=== PATIENT | female | born 1940 | race Caucasian/White ===

== ENCOUNTER → 2020-02-11 15:06 | Outpatient (BNVA) | payer MEDICARE, SELFPAY | PROVIDERS: PCP Nurse Practitioner Family; Referring Provider Nurse Practitioner Family; Visit Provider Obstetrics & Gynecology | DX: N95.0 Postmenopausal bleeding (principal); R93.89 Abnormal findings on diagnostic imaging of other specified body structures | CPT/HCPCS: 99213; Q3014 ==

== ENCOUNTER 2020-02-24 11:20 | Outpatient (REF) | payer MEDICARE, SELFPAY ==
--- NOTE | 2020-02-24 | US_ITS ---
EXAMINATION: US RETROPERITONEAL LIMITED (RENAL ONLY) CLINICAL INFORMATION: Renal cysts. COMPARISON: None TECHNIQUE: Routine valenzuela-scale, color and Doppler imaging of kidneys was performed. FINDINGS: RIGHT KIDNEY: 12.8 x 4.6 x 7.5 cm (SAG x AP x TRV). The kidney is normal in size, contour, and echogenicity. Renal cortical thickness is normal. No calculi or focal parenchymal lesions. There is mild upper pole caliectasis. No hydronephrosis seen. There are several anechoic cysts seen. 1. An upper pole cyst measures 15.8 x 4.7 x 9.6 cm. 2. Midpole cyst measures 6.8 x 4.6 x 6.3 cm. 3. A lower pole cyst measures 8.5 x 6.1 x 6.0 cm. 4. Upper pole cyst measures 1.1 x 1.2 x 1.1 cm. LEFT KIDNEY: 9.5 x 4.7 x 5.8 cm (SAG x AP x TRV). The kidney is normal in size, contour, and echogenicity. Renal cortical thickness is normal. No calculi or focal parenchymal lesions. No hydronephrosis. There are 2 anechoic cysts. 1. Midpole cyst measures 5.8 x 6.8 x 6.5 cm. 2. An upper pole cyst measures 2.2 x 2.7 x 2.6 cm. US/US renal BI IMPRESSION: Bilateral renal cysts. There are no echogenic stones. There is mild upper pole caliectasis.
== END 2020-02-24 11:21 | disposition home or self-care (01) ==
LOC: HO.HMGCX 11:20
PROVIDERS: PCP Nurse Practitioner Family; Visit Provider Urology
DX: N28.1 Cyst of kidney, acquired (principal)
CPT/HCPCS: 76775

== ENCOUNTER 2020-03-04 15:44 | Outpatient (REF) | payer MEDICARE, SELFPAY | END 2020-03-04 15:45 | disposition home or self-care (01) | LOC: HO.LNP 15:44 | PROVIDERS: Visit Provider Obstetrics & Gynecology | DX: Z13.89 Encounter for screening for other disorder (principal) ==

== ENCOUNTER 2020-03-05 08:52 | Outpatient (REF) | payer MEDICARE, SELFPAY | END 2020-03-05 08:53 | disposition home or self-care (01) | LOC: HO.LAB 08:52 | PROVIDERS: Visit Provider Obstetrics & Gynecology | DX: N95.0 Postmenopausal bleeding (principal) | CPT/HCPCS: 88305 ==

== ENCOUNTER → 2020-03-06 14:53 | Outpatient (BNVA) | payer MEDICARE, SELFPAY | PROVIDERS: Visit Provider Urology | DX: N28.1 Cyst of kidney, acquired (principal) | CPT/HCPCS: Q3014 ==

== ENCOUNTER → 2020-03-25 15:55 | Outpatient (BNVA) | payer MEDICARE, SELFPAY | PROVIDERS: Visit Provider Obstetrics & Gynecology | DX: N95.0 Postmenopausal bleeding (principal) | CPT/HCPCS: Q3014 ==

== ENCOUNTER 2020-07-06 09:21 | Outpatient (REF) | payer MEDICARE, SELFPAY ==
--- NOTE | ~2020-07-06 | XR_ITS ---
EXAMINATION: KNEE X-RAY CLINICAL INFORMATION: Pain COMPARISON: None TECHNIQUE: Standing AP view of both knees and lateral and sunrise view of the left knee FINDINGS: Left: There is mild varus angulation. No fracture or dislocation is seen. There is severe arthritis at the medial femoral tibial and patellofemoral joints with joint space narrowing and osteophyte formation. There is a joint effusion. There is an osteophyte at the quadriceps tendon insertion to the patella. There is evidence of atherosclerotic disease. Right: There is a right knee replacement. XR/XR knee LT 2V IMPRESSION: Severe left knee arthritis. Right knee replacement.
--- NOTE | ~2020-07-06 | XR_ITS ---
EXAMINATION: KNEE X-RAY CLINICAL INFORMATION: Pain COMPARISON: None TECHNIQUE: Standing AP view of both knees and lateral and sunrise view of the left knee FINDINGS: Left: There is mild varus angulation. No fracture or dislocation is seen. There is severe arthritis at the medial femoral tibial and patellofemoral joints with joint space narrowing and osteophyte formation. There is a joint effusion. There is an osteophyte at the quadriceps tendon insertion to the patella. There is evidence of atherosclerotic disease. Right: There is a right knee replacement. XR/XR knee standing BI IMPRESSION: Severe left knee arthritis. Right knee replacement.
== END 2020-07-06 09:22 | disposition home or self-care (01) ==
LOC: HO.HOSX 09:21
PROVIDERS: PCP Nurse Practitioner Family; Visit Provider Orthopaedic Surgery
DX: M17.12 Unilateral primary osteoarthritis, left knee (principal)
CPT/HCPCS: 20610; 73560; 73565; 99202; J1040; J1100

== ENCOUNTER 2020-07-24 08:50 | Day surgery (SDC) | payer MEDICARE, SELFPAY ==
[2020-07-17 19:26] VITALS: BMI 34.8
--- NOTE | 2020-07-23 09:01 | P.CONAN_ITS ---
Documented by User: Yandy Jaqui 07/23/20 09:02 HPI - Anesthesia Eval Consult details Narrative: 80yo F for Colonoscopy Eliquis for h/o PE PMFSH Active Problems Active Problems: All Active Problems (Updated 07/17/20 @ 19:26 by Mariann Miller RN) Post-menopausal bleeding (Acute) Renal cysts, acquired, bilateral (Acute) Cellulitis of foot (Acute) Irritable bowel syndrome with mixed bowel habits (Acute) Past Medical History Medical History (Updated 07/17/20 @ 19:26 by Mariann Miller RN) Arthritis DVT (deep venous thrombosis) Elevated cholesterol History of hysteroscopy (~2013) History of pulmonary embolus (PE) HTN (hypertension) Family History Family History Father No problems noted. Mother No problems noted. Surgical History Surgical History (Updated 07/17/20 @ 19:24 by Mariann Miller RN) History of colonoscopy History of phacoemulsification of cataract with intraocular lens implantation History of total right knee replacement (TKR) Hx of cholecystectomy Hx of cystoscopy (~2000) Hx of tonsillectomy Social History Social History Alcohol intake: never Smoking Status: Never smoker Second Hand Smoke Exposure: No Use of substances other than those prescribed or required for medical reasons: No Have you been hit, kicked, punched, or otherwise hurt by someone within the past year? If so, by whom?: No Advance Directives: No Advance Directives Information Provided: No Advance Directives on File: No Recently lost weight without trying: No Sexual orientation: Straight/Heterosexual Gender identity: female Meds Allergies Allergy/AdvReac Type Severity Reaction Status Date / Time latex [LATEX] Allergy Intermediate SWELLING Verified 07/06/20 09:27 hazelnut Allergy Unknown ANAPHYLAXIS Verified 07/06/20 09:27 sulfites Allergy Unknown nasal Verified 07/06/20 09:27 swelling prednisone AdvReac Unknown Unknown Verified 07/06/20 09:27 Home Medications Medication Instructions Recorded Confirmed Last Taken Type acetaminophen 500 mg tablet 1,000 mg PO Q6H PRN 01/23/20 07/17/20 Unknown History omeprazole 40 mg capsule,delayed 40 mg PO DAILY 01/23/20 07/17/20 Unknown History release oxygen-air delivery systems #1 01/23/20 05/28/20 Unknown History dicyclomine 10 mg capsule 10 mg PO .COMPLEX cap 05/28/20 07/17/20 Unknown History Exam Exam Date and Time: July 23, 2020900 Height,Weight and Vital Signs: Height 5 ft 6 in Weight 97.976 kg Assessment and Plan Assessment Anesthesia Assessment: Chart Reviewed Documented by User: Samantha Gage 07/24/20 10:52 [facility] Past Medical History Medical History (Updated 07/17/20 @ 19:26 by Mariann Miller RN) Arthritis DVT (deep venous thrombosis) Elevated cholesterol History of hysteroscopy (~2013) History of pulmonary embolus (PE) HTN (hypertension) Family History Family History Father No problems noted. Mother No problems noted. Surgical History Surgical History (Updated 07/17/20 @ 19:24 by Mariann Miller RN) History of colonoscopy History of phacoemulsification of cataract with intraocular lens implantation History of total right knee replacement (TKR) Hx of cholecystectomy Hx of cystoscopy (~2000) Hx of tonsillectomy Social History Social History Alcohol intake: never Smoking Status: Never smoker Second Hand Smoke Exposure: No Use of substances other than those prescribed or required for medical reasons: No Have you been hit, kicked, punched, or otherwise hurt by someone within the past year? If so, by whom?: No Advance Directives: No Advance Directives Information Provided: No Advance Directives on File: No Recently lost weight without trying: No Sexual orientation: Straight/Heterosexual Gender identity: female Meds Allergies Allergy/AdvReac Type Severity Reaction Status Date / Time latex [LATEX] Allergy Intermediate SWELLING Verified 07/06/20 09:27 hazelnut Allergy Unknown ANAPHYLAXIS Verified 07/06/20 09:27 sulfites Allergy Unknown nasal Verified 07/06/20 09:27 swelling prednisone AdvReac Unknown Unknown Verified 07/06/20 09:27 Home Medications Medication Instructions Recorded Confirmed Last Taken Type acetaminophen 500 mg tablet 1,000 mg PO Q6H PRN 01/23/20 07/17/20 Unknown History omeprazole 40 mg capsule,delayed 40 mg PO DAILY 01/23/20 07/17/20 Unknown History release oxygen-air delivery systems #1 01/23/20 05/28/20 Unknown History dicyclomine 10 mg capsule 10 mg PO .COMPLEX cap 05/28/20 07/17/20 Unknown History Exam Airway Mallampati Class: II TM Dist: >3cm Neck ROM: Full Heart: RRR Lungs: CTA BL Assessment and Plan Assessment Anesthesia Assessment: Anesthesia Plan Discussed and Chart Reviewed Final Anesthetic Review NPO: Yes (Sip water with meds) ASA Class: III Final Preanesthetic Review: No Changes in Pt Med Stat and Consent Obtained/Reviewed Patient Risk: Intermediate Procedure Risk: Intermediate Anesthetic Plan Anesthetic Plan: MAC: Disposition: Standard PACU
[2020-07-24 10:01] VITALS: BP 143/70; PULSE 70; RESP 18; TEMP 36.6; O2SAT 96
[2020-07-24] MEDS: Lactated Ringers 1,000 ML 100 ML IVCONT (10:31)
--- NOTE | 2020-07-24 10:53 | MHC.SHP ---
Pre-Procedural Eval Section A The patient is an INPATIENT: No Changes since office visit: No Cold of Flu in the past 2 weeks, No New Medical Problems, No Changes in Medication and No Patient answered all questions Section B Chief Complaint: rectal bleeding Allergies: Allergies Allergy/AdvReac Type Severity Reaction Status Date / Time latex [LATEX] Allergy Intermediate SWELLING Verified 07/06/20 09:27 hazelnut Allergy Unknown ANAPHYLAXIS Verified 07/06/20 09:27 sulfites Allergy Unknown nasal Verified 07/06/20 09:27 swelling prednisone AdvReac Unknown Unknown Verified 07/06/20 09:27 Plan I have reviewed the history and physical and performed a pertinent physical examination on my patient. No changes have occurred unless specified.
[2020-07-24 11:22] VITALS: BP 115/63; PULSE 64; RESP 16; TEMP 36.3; O2SAT 95
--- NOTE | 2020-07-24 11:32 | MHC.SHP ---
Pre-Procedural Eval Section A The patient is an INPATIENT: No Changes since office visit: No Cold of Flu in the past 2 weeks, No New Medical Problems, No Changes in Medication and No Patient answered all questions The History & Physical has been completed within 30 days and I have reviewed it.: No Section B Chief Complaint: rectal bleeding Allergies: Allergies Allergy/AdvReac Type Severity Reaction Status Date / Time latex [LATEX] Allergy Intermediate SWELLING Verified 07/06/20 09:27 hazelnut Allergy Unknown ANAPHYLAXIS Verified 07/06/20 09:27 sulfites Allergy Unknown nasal Verified 07/06/20 09:27 swelling prednisone AdvReac Unknown Unknown Verified 07/06/20 09:27 Plan I have reviewed the history and physical and performed a pertinent physical examination on my patient. No changes have occurred unless specified.
--- NOTE | 2020-07-24 11:32 | PM.OP ---
Brief Operative Note Date of Service: 07/24/20 Pre-op diagnosis: rectal bleeding Post-op diagnosis: same Procedure: colonoscopy Surgeon: Donte Merrill Anesthesia: MAC Estimated blood loss (mL): 2 Pathology: other (sigmoid biopsies) Condition: stable Disposition: PACU
[2020-07-24 11:37] VITALS: BP 146/76; PULSE 64; RESP 16; TEMP 36.3; O2SAT 96
--- NOTE | 2020-07-24 11:46 | OP_ITS ---
SURGEON: Donte Merrill MD INDICATIONS: Rectal bleeding and irritable bowel syndrome with diarrhea. PREOPERATIVE DIAGNOSIS: POSTOPERATIVE DIAGNOSIS: PROCEDURE PERFORMED: Colonoscopy to the terminal ileum with biopsy. ESTIMATED BLOOD LOSS: COMPLICATIONS: ANESTHESIA: ASSISTANTS: SPECIMENS: MEDICATIONS: Monitored anesthesia care. DESCRIPTION OF PROCEDURE: History and physical performed. The risks and benefits of the procedure were explained to the patient. Informed consent was obtained. The patient was placed in left lateral decubitus position. A digital rectal exam was performed and was found to be normal. The Olympus pediatric video colonoscope was introduced into the rectum and advanced to the cecum without difficulty. The cecum was identified by transillumination, palpation, and identification of ileocecal valve. Examination was performed and the scope was removed. She tolerated the procedure well and was taken to recovery area in stable condition. FINDINGS: The terminal ileum was normal. The visualized colonic mucosa was normal. There was diverticulosis scattered throughout the colon. Random sigmoid biopsies were obtained. The quality of the prep was good. The mucosa appeared normal. Retroflexed examination showed some small internal hemorrhoids. IMPRESSION: Normal colonoscopy. RECOMMENDATIONS: 1. Follow up as needed. 2. Repeat colonoscopy for screening purposes is not recommended based on age. MD BAHMAN Bolden/BRITTNEE / [id number]
== END 2020-07-24 12:35 | disposition home or self-care (01) ==
PROVIDERS: PCP Nurse Practitioner Family; Visit Provider Internal Medicine Gastroenterology
PROC: 0DJD8ZZ Inspection of Lower Intestinal Tract, Via Natural or Artificial Opening Endoscopic (ICD-10-PCS; CPT 45378; principal; 2020-07-24 10:10)
DX: K62.5 Hemorrhage of anus and rectum (principal); K58.0 Irritable bowel syndrome with diarrhea; Z86.010 Personal history of colon polyps; K64.8 Other hemorrhoids; I10 Essential (primary) hypertension; I82.409 Acute embolism and thrombosis of unspecified deep veins of unspecified lower extremity; Z79.02 Long term (current) use of antithrombotics/antiplatelets; Z86.711 Personal history of pulmonary embolism; Z87.891 Personal history of nicotine dependence; Z91.040 Latex allergy status
CPT/HCPCS: 45380; 88305

== ENCOUNTER 2020-10-01 14:33 | Outpatient (REF) | payer MEDICARE, SELFPAY ==
--- NOTE | ~2020-10-01 | US_ITS ---
EXAMINATION: US VENOUS ULTRASOUND WITH DOPPLER LOWER EXTREMITY, RIGHT CLINICAL INFORMATION: Right leg swelling. On atelectatic was COMPARISON: None TECHNIQUE: Ultrasound of the deep veins is performed from the hip to the calf with compression sonography and color and pulse Doppler assessment. Spectral analysis with color-flow imaging is performed. FINDINGS: There is normal flow and compression seen in the common femoral, greater saphenous and the profunda veins. There is noncompression with thrombus visualized in the right proximal femoral vein to right calf veins consistent with acute DVT. There is no significant popliteal fossa cyst. If the patient's symptoms persist, followup ultrasound in 5 days 7 days might be of value to exclude proximal propagation from a non-visualized calf vein. US/US venous duplex LE RT IMPRESSION: Acute DVT right common femoral to calf veins. The right common femoral, greater saphenous and profunda femoral veins are patent.
== END 2020-10-01 14:34 | disposition home or self-care (01) ==
LOC: HO.HMGCX 14:33
PROVIDERS: PCP Nurse Practitioner Family; Visit Provider Nurse Practitioner Family
DX: M79.89 Other specified soft tissue disorders (principal); I10 Essential (primary) hypertension; Z86.718 Personal history of other venous thrombosis and embolism
CPT/HCPCS: 93971

== ENCOUNTER 2020-10-02 08:46 | Outpatient (REF) | payer MEDICARE, SELFPAY ==
[2020-10-02 11:41] LABS: D Dimer 2153 NG/ML
[2020-10-02 12:16] LABS: TSH reflex Free T4 1.15 uIU/mL (0.32-4.0)
[2020-10-02 12:34] LABS: Alanine Aminotransferase 9 U/L (0-31); Albumin Level 4.2 g/dL (3.5-5.0); Alkaline Phosphatase 124 U/L (39-117); Anion Gap 15 (12-20); Aspartate Amino Transferase 14 U/L (5-31); Bilirubin Total 0.7 mg/dL (0.0-1.0); Blood Urea Nitrogen 15 mg/dL (9-16); Carbon Dioxide 27 mmol/L (22-29); Chloride 105 mmol/L (96-108); Cholesterol 179 mg/dL; Estimated Glomerular Filt Rate 57; Glucose Fasting 105 mg/dL (60-99); HDL Cholesterol 46 mg/dL; LDL Cholesterol Calculated 106 mg/dl; Potassium 4.3 mmol/L (3.3-5.1); Sodium 143 mmol/L (135-145); Total Protein 6.7 g/dL (6.5-8.0); Triglycerides 137 mg/dL
== END 2020-10-02 08:47 | disposition home or self-care (01) ==
LOC: HO.HMGCLDS 08:46
PROVIDERS: PCP Nurse Practitioner Family; Visit Provider Nurse Practitioner Family
DX: I10 Essential (primary) hypertension (principal); M79.89 Other specified soft tissue disorders; Z86.718 Personal history of other venous thrombosis and embolism
CPT/HCPCS: 36415; 80053; 80061; 84443; 85379

== ENCOUNTER → 2020-10-15 10:44 | Outpatient (BNV) | payer MEDICARE, SELFPAY | PROVIDERS: PCP Nurse Practitioner Family; Referring Provider Nurse Practitioner Family; Visit Provider Internal Medicine Medical Oncology | DX: I82.401 Acute embolism and thrombosis of unspecified deep veins of right lower extremity (principal) | CPT/HCPCS: 99204; 99213; 99214 ==

== ENCOUNTER 2021-10-12 13:18 | Outpatient (REF) | payer MEDICARE, SELFPAY ==
--- NOTE | ~2021-10-12 | MM_ITS ---
EXAMINATION: BONE DENSITOMETRY CLINICAL INDICATION: Menopause. COMPARISON: Previous BD dated 08/11/1999 and baseline BD dated 07/14/2008. TECHNIQUE: Using a [employer] DXA System (software version: 13.1) manufactured by [employer], dual-energy x-ray absorptiometry was performed of the lumbar spine and left hip. The images are of good technical quality. Summary results are attached. FINDINGS: AP SPINE L1-L4: Current: BMD 1.375 g/cm2, Z-score 2.5, T-score 1.6, normal, 1.0% decrease from previous, 2.1% increase from baseline (<5% change is not significant). Prior: BMD 1.389 g/cm2. Baseline: BMD 1.347 g/cm2. LEFT FEMUR, NECK: Current: BMD 0.739 g/cm2, Z-score -0.6, T-score -2.2, osteopenia. Prior: BMD 0.876 g/cm2. Baseline: BMD 0.864 g/cm2. LEFT FEMUR, TOTAL: Current: BMD 0.930 g/cm2, Z-score 0.7, T-score -0.6, normal, 9.0% decrease from previous, 6.9% decrease from baseline (<5% change is not significant). Prior: BMD 1.022 g/cm2. Baseline: BMD 0.999 g/cm2. IDENTIFIED RISK FACTORS: Menopause. HISTORY OF FRACTURE: None listed. MEDICATIONS: None listed. MM/XR DEXA axial skeleton IMPRESSION: 1. DIAGNOSIS: Osteopenia based on the lowest T-score value of -2.2 in the femoral neck applying World Health Organization criteria. 2. 10-YEAR FRACTURE RISK PREDICTION, FRAX: Major osteoporotic fracture (clinical spine, forearm, hip or shoulder) 15.7%. Hip fracture 4.8%. 3. Treatment Recommendations: NOF guidelines recommend consideration for treatment in postmenopausal women and men age 50 and older presenting with the following: -A hip or vertebral (clinical or morphometric) fracture. -T-score less than or equal to -2.5 at the femoral neck or spine after appropriate evaluation to exclude secondary causes. -Low bone mass at the hip or spine and a 10-year fracture probability by FRAX of greater than or equal to 3% for hip fracture or greater than or equal to 20% for major osteoporotic fracture based on the [place] adapted WHO algorithm. 4. Other Recommendations: All treatment decisions require clinical judgment and consideration of individual patient factors, including patient preferences, comorbidities, previous drug use, risk factors not captured in the FRAX model (e.g. frailty, falls, vitamin D deficiency, increased bone turnover, interval significant decline in bone density) and possible under or overestimation of fracture risk by FRAX. Additional medical evaluation for secondary cause of low bone mineral density may be appropriate. FUTURE SCAN RECOMMENDATION: People with diagnosed cases of osteoporosis or at high risk for fracture should have regular bone mineral density tests. For patients eligible for Medicare, routine testing is allowed once every 2 years. The testing frequency can be increased to one year for patients who have rapidly progressing disease, those who are receiving or discontinuing medical therapy to restore bone mass, or have additional risk factors.
== END 2021-10-12 13:19 | disposition home or self-care (01) ==
LOC: HO.MAMMO 13:18
PROVIDERS: PCP Nurse Practitioner Family; Visit Provider Nurse Practitioner Family
DX: Z78.0 Asymptomatic menopausal state (principal); K58.2 Mixed irritable bowel syndrome
CPT/HCPCS: 77080

== ENCOUNTER → 2021-11-08 13:49 | Outpatient (REF) | payer MEDICARE, SELFPAY ==
--- NOTE | 2021-11-08 13:52 | CA_ITS ---
Transthoracic Echocardiogram Patient (Last, First, Middle): Colette Aguiar G Gender: Female Date of : 1940 Age: 81 Procedure Date: 11/08/2021 Procedure Type: Transthoracic Echocardiogram Location: OP Height: 170.18 cm Weight: 91.17 kg BSA: 2.03 m2 Heart Rate: bpm BP: 122 / 60 mmHg Embedded Processor: Referring MD: Santos Reyez [facility] Print Buyer: Chris Ng MD Symptoms: R01.1 - Cardiac murmur, unspecified Study Quality: Good ECG Rhythm: Sinus with extra beats Conclusions: - 1. Normal LV systolic function with impaired relaxation filling pattern 2. Normal cardiac valvular Doppler 3. Mildly dilated ascending aorta at 3.9 cm 4. Normal RV systolic pressure 5. No gross pericardial effusion Findings Left Ventricle Normal left ventricular size, thickness, and systolic function. The visually estimated ejection fraction is between 60-65%. Spectral Doppler is indicative of an impaired relaxation filling pattern. E/E prime ratio is between 8 and 15 consistent with indeterminate filling pressures. Right Ventricle Normal right ventricular cavity size and systolic function. Atria Both atria are normal in size. There is a mobile atrial septum noted. Interatrial shunt cannot be excluded. Aortic Valve There is mild calcification of the aortic valve. There is no aortic valve stenosis. There is no aortic valve regurgitation. Mitral Valve Normal mitral valve structure and function. There is trace mitral valve regurgitation. There is no mitral valve stenosis. Pulmonic Valve The pulmonic valve was not well visualized. Tricuspid Valve Likely normal tricuspid valve structure and function. There is trace tricuspid valve regurgitation. The right ventricular systolic pressure is normal. The right ventricular systolic pressure is 32 mmHg. Normal right atrial pressure. There is no evidence of pulmonary hypertension. Great Vessels The pulmonary artery was not well visualized. There is mild dilatation of the ascending aorta. Venous The inferior vena cava is normal in size and collapses greater than 50% with inspiration. Pericardium/Pleural There is no evidence of pericardial effusion. Prior Study Comparison No significant change compared to prior study dated: 01/03/2017. Measurements 2D Linear Measurements IVSd: 0.92 0.6-0.9/0.6-1.0 cm LVIDd: 4.79 3.9-5.3/4.2-5.9 cm LVIDd Index: 2.36 2.4-3.2/2.2-3.1 cm/m2 LVIDs: 2.63 2.0-3.6 cm LVPWd: 0.93 0.7-1.1 cm Ao Root: 3.30 2.1-3.5 cm LA Diam: 3.80 2.7-3.8/3.0-4.0 cm LAIDs Index: 1.87 1.5-2.3 cm/m2 LV Mass: 189.62 67-162/88-224 g LV Mass Index: 93.41 43-95/49-115 g/m2 LVOT Diam: 2.00 3.0+(-)1.3 cm Mitral Valve MV Pk E: 0.57 MV PK A: 0.78 MV Decel Time: 224.00 E/A: 0.70 E'Lateral: 4.03 E'Medial: 4.68 E/E' Med: 12.20 E/E' Lat: 14.10 PHT: 65.00 MVA PHT: 3.38 Decel Mcintosh: 2.55 Aortic Valve AoV Pk León: 1.65 AoV Mn León: 0.98 AoV VTI: 0.31 AoV Pk Grad: 11.00 Aov Mn Grad: 5.00 RANDOLPH Cont.VTI: 2.21 LVOT LVOT Pk León: 1.04 LVOT Mn León: 0.69 LVOT VTI: 0.22 LVOT Pk Grad: 4.00 LVOT Mn Grad: 3.00 LVOT Diam: 2.00 LVOT Area: 3.14 Diastolic Function MV Pk E: 0.57 MV Pk A: 0.78 E/A: 0.70 E'Medial: 4.68 E/E' Med: 12.20 E' Laterial: 4.03 E/E' Lat: 14.10 Tricuspid Valve TR Pk León: 2.71 TR Pk Grad: 29.00 RA Press: 3.00 RVSP: 32.00 Great Vessels Aorta Ao Root-2D: 3.30 2.0-3.7 cm Ao Asc: 3.90 2.1-3.4 cm Pulmonary Valve PV Pk León: 0.99 Peak PV Grad: 4.00 Updated in Other Vendor System with Status of Final Chris Ng MD electronically signed on 11/08/2021 3:12:51 PM with status of Final
== END ==
LOC: HO.CARD 13:49
PROVIDERS: PCP Nurse Practitioner Family; Visit Provider Nurse Practitioner Family
DX: R01.1 Cardiac murmur, unspecified (principal)
CPT/HCPCS: 93306

== ENCOUNTER 2021-11-23 13:51 | Outpatient (REF) | payer MEDICARE, SELFPAY ==
[2021-11-23 15:34] LABS: Blood Urea Nitrogen 18 mg/dL (9-16); C Reactive Protein 0.28 mg/dL (< or = 0.50); Estimated Glomerular Filt Rate 52
[2021-11-23 15:57] LABS: TSH reflex Free T4 0.77 uIU/mL (0.32-4.0)
[2021-11-23 16:08] LABS: Folate 3.7 ng/mL (> or = 4.0); Vitamin B12 334 pg/mL (200-900)
[2021-11-24 12:46] LABS: Transglutaminase Ab IgG <1.0 U/mL; Transglutaminase IgA <1.0 U/mL
[2021-11-27 14:02] LABS: Vitamin D 25-OH, D2 <4 ng/mL; Vitamin D 25-OH, D3 27 ng/mL; Vitamin D 25-OH, Total 27 ng/mL (30-100)
== END 2021-11-23 13:52 | disposition home or self-care (01) ==
LOC: HO.LAB 13:51
PROVIDERS: PCP Nurse Practitioner Family; Visit Provider Nurse Practitioner Family
DX: R10.11 Right upper quadrant pain (principal); R10.31 Right lower quadrant pain; K58.2 Mixed irritable bowel syndrome; K59.1 Functional diarrhea; E55.9 Vitamin D deficiency, unspecified
CPT/HCPCS: 36415; 82306; 82565; 82607; 82746; 84443; 84520; 86140; 86364; 99202; 99212

== ENCOUNTER 2021-11-26 12:18 | Outpatient (REF) | payer MEDICARE, SELFPAY ==
[2021-12-02 19:31] LABS: Fecal Fat Qualitative Normal (Normal)
== END 2021-11-26 12:19 | disposition home or self-care (01) ==
LOC: HO.LNP 12:18
PROVIDERS: Visit Provider Nurse Practitioner Family
DX: R19.7 Diarrhea, unspecified (principal)
CPT/HCPCS: 82705; 87177; 87209

== ENCOUNTER 2021-12-01 08:50 | Outpatient (REF) | payer MEDICARE, SELFPAY ==
--- NOTE | ~2021-12-01 | CT_ITS ---
EXAMINATION: CT ABDOMEN AND PELVIS WITHOUT CONTRAST CLINICAL INFORMATION: Right lower quadrant pain COMPARISON: Previous CT of the abdomen and pelvis most recent October 2019 and pelvic and renal ultrasound from 2019 TECHNIQUE: Multidetector volumetric imaging was performed from the superior aspect of the liver through the pubic symphysis. Sagittal and coronal reformatted images were obtained on the technologist's workstation. This CT examination was performed using dose optimization techniques as appropriate, variously including the following: *Automated exposure control *Adjustment of mA and/or kV according to patient size (this includes techniques or standardized protocols for targeted exams where dose is matched to indication/reason for exam; i.e. extremities or head) *Use of iterative reconstruction technique DLP: 754 mGy-cm FINDINGS: LUNG BASES: The visualized lung bases are unremarkable. LIVER, GALLBLADDER, AND BILIARY TREE: The liver is normal in size, shape, and attenuation. No focal hepatic lesion or biliary ductal dilatation is present. There is a small calcification high in the dome of the liver that is stable. The gallbladder has been removed. PANCREAS: Unremarkable. SPLEEN: Unremarkable. ADRENAL GLANDS: Unremarkable. KIDNEYS AND URETERS: There are multiple large bilateral renal cysts. Largest right renal cyst measures 6 x 11 cm exophytic to the lateral upper pole and 8 x 7 cm exophytic to the lower pole. Largest left renal cyst measures 0.5 x 7 cm exophytic to the lateral midpole. The kidneys are otherwise unremarkable. BLADDER: There is a soft tissue calcification adjacent to the anterior bladder wall just left of midline that is stable. The bladder is otherwise normal. GASTROINTESTINAL TRACT: There is severe diverticulosis of the colon. No evidence of diverticulitis is seen. Small and large bowel is otherwise normal. The appendix is normal. The stomach is normal. ABDOMINAL WALL: No significant hernia is appreciated. LYMPH NODES: Normal. VASCULAR: There is evidence of atherosclerotic disease. No aneurysm is seen. PELVIC VISCERA: Unremarkable. OSSEOUS STRUCTURES: There are degenerative changes of the spine. There are degenerative changes of the hip joints, right greater than left. CT/CT abdomen pelvis wo con IMPRESSION: Multiple large bilateral renal cysts, right greater than left. Severe diverticulosis of the colon. No evidence of diverticulitis. Fleischner guidelines were followed.
[2021-12-01] MEDS: Barium Sulfate Oral (Vanilla) 450 ML ORAL.SUSP 900 ML PO (11:06)
== END 2021-12-01 08:51 | disposition home or self-care (01) ==
LOC: HO.CT 08:50
PROVIDERS: PCP Nurse Practitioner Family; Visit Provider Nurse Practitioner Family
DX: R10.9 Unspecified abdominal pain (principal)
CPT/HCPCS: 74176

== ENCOUNTER → 2022-01-04 13:23 | Outpatient (BNVA) | payer MEDICARE, SELFPAY | PROVIDERS: PCP Nurse Practitioner Family; Referring Provider Nurse Practitioner Family; Visit Provider Nurse Practitioner Family | DX: R10.84 Generalized abdominal pain (principal); K58.2 Mixed irritable bowel syndrome; E53.8 Deficiency of other specified B group vitamins; E55.9 Vitamin D deficiency, unspecified | CPT/HCPCS: 99212 ==

== ENCOUNTER 2022-04-07 10:37 | Outpatient (REF) | payer MEDICARE, SELFPAY ==
--- NOTE | ~2022-04-07 | US_ITS ---
EXAMINATION: US VENOUS ULTRASOUND WITH DOPPLER LOWER EXTREMITY, RIGHT CLINICAL INFORMATION: Right leg swelling. History of acute DVT 10/01/2020. Patient is on Eliquis. COMPARISON: Ultrasound right leg 10/01/2020 TECHNIQUE: Ultrasound of the deep veins is performed from the hip to the calf with compression sonography and color and pulse Doppler assessment. Spectral analysis with color-flow imaging is performed. FINDINGS: At the time of the prior study, extensive thrombosis was seen involving the right calf veins extending up to the proximal femoral vein. On the current study, there is chronic appearing nonunion obstructing thrombus present in the popliteal vein and femoral vein consistent with chronic resolving DVT. The posterior tibial veins could not be visualized. The left common femoral vein appeared normal. There is no significant popliteal fossa cyst. . US/US venous duplex LE RT IMPRESSION: Interval improvement since the prior study. There is residual chronic thrombus present in the popliteal vein and femoral vein. The posterior tibial veins could not be visualized.
== END 2022-04-07 10:38 | disposition home or self-care (01) ==
LOC: HO.US 10:37
PROVIDERS: Visit Provider Internal Medicine Medical Oncology
DX: I82.401 Acute embolism and thrombosis of unspecified deep veins of right lower extremity (principal)
CPT/HCPCS: 93971

== ENCOUNTER → 2022-07-13 13:09 | Outpatient (BNVA) | payer MEDICARE, SELFPAY | PROVIDERS: PCP Nurse Practitioner Family; Visit Provider Nurse Practitioner Family | DX: K58.2 Mixed irritable bowel syndrome (principal); R10.32 Left lower quadrant pain | CPT/HCPCS: 99212 ==

== ENCOUNTER 2022-09-29 08:08 | Outpatient (REF) | payer MEDICARE, SELFPAY ==
[2022-09-29 11:41] LABS: MANUAL DIFF FLAG NO
[2022-09-29 11:57] LABS: D Dimer High Sensitivity 172 NG/ML
[2022-09-29 12:01] LABS: Basophils Percent Auto 0.5 % (0-2); Eosinophils Percent Auto 0.7 % (0-4); Hematocrit 49.8 % (37.0-47.0); Hemoglobin 16.3 g/dl (12.0-16.0); Imm Gran Abs Auto 0.03 X10*3/uL (0.00-0.03); Imm Gran Pct Auto 0.5 % (0.0-0.4); Lymphocytes Absolute Auto 1.6 X10*3/uL (1.2-4.9); Lymphocytes Percent Auto 28.2 % (20-40); Mean Corpuscular HGB Conc 32.7 g/dl (31.0-35.0); Mean Corpuscular Hemoglobin 31.8 pg (27.0-33.0); Mean Corpuscular Volume 97.3 fL (80.0-98.0); Mean Platelet Volume 10.9 fL (9.4-12.3); Monocytes Absolute Auto 0.4 X10*3/uL (0.1-1.2); Monocytes Percent Auto 6.5 % (2-11); Neutrophils Absolute Auto 3.7 x10*3/uL (2.0-8.3); Neutrophils Percent Auto 63.6 % (45-73); Platelet Count 122 X10*3/uL (160-400); Red Blood Count 5.12 X10*6/uL (4.20-5.50); Red Cell Distribution Width 14.2 % (11.0-16.0); White Blood Count 5.8 X10*3/uL (4.8-10.8)
[2022-09-29 12:33] LABS: Alanine Aminotransferase 14 U/L (0-31); Albumin Level 4.2 g/dL (3.5-5.0); Alkaline Phosphatase 108 U/L (39-117); Anion Gap 17 (12-20); Aspartate Amino Transferase 17 U/L (5-31); Bilirubin Total 0.7 mg/dL (0.0-1.0); Blood Urea Nitrogen 18 mg/dL (9-16); Calcium 9.6 mg/dL (8.4-10.2); Carbon Dioxide 24 mmol/L (22-29); Chloride 106 mmol/L (96-108); Estimated Glomerular Filt Rate 49; Glucose Random 111 mg/dL (60-115); Potassium 4.7 mmol/L (3.3-5.1); Sodium 142 mmol/L (135-145); Total Protein 6.8 g/dL (6.5-8.0); Vitamin D 25-OH Total 46.3 ng/mL (>30)
== END 2022-09-29 08:09 | disposition home or self-care (01) ==
LOC: HO.HMGCLDS 08:08
PROVIDERS: PCP Nurse Practitioner Family; Visit Provider Internal Medicine Medical Oncology
DX: E55.9 Vitamin D deficiency, unspecified (principal); I82.409 Acute embolism and thrombosis of unspecified deep veins of unspecified lower extremity
CPT/HCPCS: 36415; 80053; 82306; 85025; 85379

== ENCOUNTER 2022-12-05 14:53 | Outpatient (AMB) | payer MEDICARE, SELFPAY ==
[2022-12-05 15:03] VITALS: BP 140/78; PULSE 107; O2SAT 94; BMI 33.6
--- NOTE | 2022-12-05 15:03 | MHC.PC.OV ---
Vital Signs 12/05/22 15:03 Height 5 ft 6 in Weight 208 lb 6 oz BMI 33.6 BP 140/78 H Blood Pressure Location Rt brachial Position Sitting Pulse 107 H Pulse Source Pulse Oximeter Pulse Oximetry (%) 94 Oxygen Delivery Method Room Air Intake Visit Reasons: 4m follow up Allergies latex [LATEX] Allergy (Intermediate, Verified 12/05/22 15:10) SWELLING hazelnut Allergy (Unknown, Verified 12/05/22 15:10) ANAPHYLAXIS prednisone Adverse Reaction (Unknown, Verified 12/05/22 15:10) Unknown sulfite Adverse Reaction (Unknown, Verified 12/05/22 15:10) Nasal swelling Medication List - Last Reconciled 12/05/22 by VENESSA Luu acetaminophen (Pain Relief (acetaminophen)) 1,000 mg PO Q6H PRN amlodipine 2.5 mg PO DAILY apixaban (Eliquis) 5 mg PO BID 90 days atorvastatin 10 mg PO DAILY 90 days cholecalciferol (vitamin D3) 50 mcg PO DAILY commode As directed dicyclomine 10 mg PO 2 caps in the am and 1 cap in the pm irbesartan 75 mg PO DAILY 90 days omeprazole 40 mg PO DAILY sennosides (senna) 8.6 mg PO BEDTIME Tobacco use date assessed: 12/05/22 Fall risk assessment: No Falls in past year Last assessed Fall Risk: 12/05/22 Dental Screening Dental Screen Date: 12/05/22 Did you have a dental visit in the last 12 months?: No Did you have a dental problem in the last 6 months where you did not have access to dental care?: No Was dental information given to patient?: No HPI 4m follow up HPI Details HTN: Blood pressure is managed with amlodipine 2.5mg and irbesartan 75mg. Pt monitors her blood pressure at home, she will call me if it sustains above 140/90. Denies chest pain, shortness of breath, headache, dizziness, and blurred vision. [facility] Medical History Arthritis DVT (deep venous thrombosis) Elevated cholesterol History of pulmonary embolus (PE) HTN (hypertension) Surgical History History of colonoscopy History of hysteroscopy (~2013) History of phacoemulsification of cataract with intraocular lens implantation History of total right knee replacement (TKR) Hx of cholecystectomy Hx of cystoscopy (~2000) Hx of tonsillectomy Family History (Reviewed 08/03/22 @ 17:09 by Santos Reyez [facility]) Father No problems noted. Mother No problems noted. Other No family history of cancer Social History (Reviewed 12/05/22 @ 17:58 by Santos Reyez [facility]) Household Members: Spouse Housing: House Are you a primary resident care manager to a significant other at home: No Do you presently have visiting nurse or other home services: No Alcohol intake: never Patient Tobacco Use Status: Former Tobacco user Years Smoked: over 20 years ago e-Cigarette/Vaping Use: Never Used Second Hand Smoke Exposure: No service: No Current occupational status: retired Sexual orientation: Straight/Heterosexual Gender identity: Female Cognitive needs: No Hearing needs: No Vision needs: No Questionnaire Thrive Questionnaire Date Thrive assessed: 10/04/21 TIA-7 AMB Questionnaire TIA-7 Date TIA - 7 assessed: 10/04/21 Source: Developed by Drs. Luis Angel Ny, Pamela Celestin, Sudeep Jennings and colleagues, with an educational gianna from [employer]. Review of Systems Const Reports as per HPI Physical exam (Primary Care) Vital Signs: Last Vital Signs Pulse 107 H 12/05/22 15:03 BP 140/78 H 12/05/22 15:03 Pulse Ox 94 12/05/22 15:03 Oxygen Delivery Method Room Air 12/05/22 15:03 BMI result Body Mass Index 33.6 Tobacco/Smoking Status: Tobacco use Status Tobacco use date assessed 12/05/22 12/05/22 15:11 Patient Tobacco Use Status Former Tobacco user 12/05/22 15:11 e-Cigarette/Vaping Use Never Used 12/05/22 15:11 Thrive Assessment: Date of Thrive Assessment Date Thrive assessed 10/04/21 12/05/22 15:11 Const General: cooperative Nutritional Appearance: obese Orientation/consciousness: patient oriented x3 Limitations: ambulation with cane Resp Effort & Inspection: normal respiratory effort Auscultation: clear to auscultation bilaterally Cardio Rate: regular rate Rhythm: regular rhythm Heart sounds: S1 normal heart sound present, S2 normal heart sound present and Murmur heart sound present systolic (faint) Neuro General: patient oriented x3 Extrem Other: trace edema to BLE Psych Appearance: grossly normal Mental Status: mental status grossly normal Speech and movement: Normal speech and movement present Affect: normal affect Attitude: cooperative Thought process: Normal thought process present Thought content: Normal thought content present Insight: Good insight present (Psych) Judgement: Good judgement present (Psych) Assessment and Plan Assessment & Plan (1) HTN (hypertension): Code(s): I10 - Essential (primary) hypertension Plan The patient agreed to the use of a biomedical engineering aide for this encounter. Scribed for VENESSA Colvin by Leeann Pan biomedical engineering aide, on 12/05/2022 at 15:35 EST. Orders: Orders Comprehensive [place]. Panel Fast Today I10 - Essential (primary) hypertension Lipid Panel Today I10 - Essential (primary) hypertension TSH reflex Free T4 Today I10 - Essential (primary) hypertension Complete Blood Count Auto Diff Today I10 - Essential (primary) hypertension UA CC w/rflx Micro + Cult Today I10 - Essential (primary) hypertension Coding Level of Care Code Est Pt Level 3 (78750) Diagnoses HTN (hypertension) I10
== END 2022-12-05 16:15 | disposition home or self-care (01) ==
PROVIDERS: Visit Provider Nurse Practitioner Family
DX: I10 Essential (primary) hypertension (principal)
CPT/HCPCS: 99213

== ENCOUNTER 2022-12-12 09:52 | Outpatient (REF) | payer MEDICARE, SELFPAY | END 2022-12-12 09:53 | disposition home or self-care (01) | LOC: HO.SH 09:52 | PROVIDERS: Visit Provider Nurse Practitioner Family | DX: Z01.118 Encounter for examination of ears and hearing with other abnormal findings (principal); H90.3 Sensorineural hearing loss, bilateral | CPT/HCPCS: 92557; 92567 ==

== ENCOUNTER 2023-01-16 12:42 | Outpatient (AMB) | payer MEDICARE, SELFPAY ==
--- NOTE | 2023-01-16 12:59 | A.OFFVIS_ITS ---
Intake Vital Signs 01/16/23 13:00 Height 5 ft 6 in Weight 205 lb 14.588 oz BMI 33.2 BP 120/64 Blood Pressure Location Lt brachial Position Sitting Pulse 76 Intake Visit Reasons: 6 month fu Intake Note: Colette presents in the office as a 6 month follow up of IBS. CC: Patient reports occasional constipation. Denies other GI symptoms today. Wave Solder Offbearer Required: No Accompanied by: Spouse Allergies latex [LATEX] Allergy (Intermediate, Verified 01/16/23 13:02) SWELLING hazelnut Allergy (Unknown, Verified 01/16/23 13:02) ANAPHYLAXIS prednisone Adverse Reaction (Unknown, Verified 01/16/23 13:02) Unknown sulfite Adverse Reaction (Unknown, Verified 01/16/23 13:02) Nasal swelling HPI 6 month fu HPI Details LAST VISIT Abdominal pain Patient reports left lower quadrant discomfort. Patient has occasional blood in abdominal bloating weight loose stools. Patient who ever does not feel like she weighs empty her bowels completely. Patient can take MiraLax every morning to help her empty completely. Discussed with patient also low FODMAP diet. IBS (irritable bowel syndrome) On and off constipation and diarrhea. Sometimes patient will have a postprandial loose stools depending on the food that she eats. I will have her start taking MiraLax so she can empty completely. Low FODMAP diet discussed with patient. List of food recommended as well as list of food to avoid given to patient. Patient noticed that certain food will aggravate her bowels more and she will have loose stools. I will see her in 6 months, sooner on as needed basis. Patient is agreeable to this plan and verbalizes understanding of instructions. She was given the opportunity to ask questions and all questions answered. ? Thank you for allowing me to participate in her care Plan Medications New polyethylene glycol 3350 (Miralax) 17 grams PO DAILY 510 grams 2RF TODAY'S VISIT Patient is here today for follow-up. Patient is accompanied by her . Patient reports that she has been doing well since the last time I has seen her. She has been trying to follow FODMAP diet. Occasional constipation. Her diarrhea is much more controlled. Patient denies any melena, hematochezia unintentional weight loss or ribbon like stools. Patient denies any dyspepsia, dysphagia or odynophagia. Patient reports that overall she has been doing good. Appetite is good. Patient was able to go away for couple days without having any episodes of abdominal pain, discomfort, diarrhea. REPLACED BY [facility] Medical History History of pulmonary embolus (PE) Arthritis Elevated cholesterol DVT (deep venous thrombosis) HTN (hypertension) Surgical History History of colonoscopy History of hysteroscopy (~2013) Hx of cystoscopy (~2000) Hx of tonsillectomy History of phacoemulsification of cataract with intraocular lens implantation Hx of cholecystectomy History of total right knee replacement (TKR) Family History Father No problems noted. Mother No problems noted. Other No family history of cancer Social History Household Members: Spouse Housing: House Are you a primary critical care physician assistant to a significant other at home: No Do you presently have visiting nurse or other home services: No Alcohol intake: never Patient Tobacco Use Status: Former Tobacco user Years Smoked: over 20 years ago e-Cigarette/Vaping Use: Never Used Second Hand Smoke Exposure: No service: No Current occupational status: retired Sexual orientation: Straight/Heterosexual Gender identity: Female Cognitive needs: No Hearing needs: No Vision needs: No Review of Systems Const Denies weight gain and Denies weight loss ENT Reports no additional complaints, Denies dysphagia and Denies odynophagia Card Reports no additional complaints Resp Reports no additional complaints GI Denies abdominal pain, Denies belching, Denies melena, Denies bloating, Denies change in bowel habits, Reports constipation, Denies dysphagia, Denies excessive flatus, Denies dyspepsia, Denies heartburn, Denies diarrhea, Reports loose stools, Denies nausea, Denies odynophagia and Denies vomiting Reports no additional complaints Musc Reports no additional complaints Neuro Reports no additional complaints Psych Reports no additional complaints Endo Reports no additional complaints Physical Exam Vital Signs: Last Vital Signs Pulse 76 01/16/23 13:00 BP 120/64 01/16/23 13:00 BMI result Body Mass Index 33.2 Const Other: Ambulating with cane General: healthy appearing, no acute distress and well developed Nutritional Appearance: obese Orientation/consciousness: patient oriented x3 HEENT Head: Yes normal to inspection, Yes normocephalic and Yes atraumatic Face and sinus: Yes normal facial exam Mouth: Normal oral and palatal mucosa present Throat: Yes posterior oropharynx normal, Yes tonsils normal and Yes uvula midline Eyes General: appearance normal, both eyes and all related structures Neck Neck: Yes normal visual inspection, Yes full ROM and Yes trachea midline Thyroid: Thyroid normal Resp Effort & Inspection: normal respiratory effort, able to speak in complete sentences, no tracheal deviation and symmetric chest movement Auscultation: clear to auscultation bilaterally Cardio Rate: regular rate Heart sounds: S1 normal heart sound present and S2 normal heart sound present GI Inspection: Yes normal to inspection, No distended and Yes obesity Palpation (GI): Soft to palpation, not firm, nontender and No hepatosplenomegaly present Auscultation: normal bowel sounds General: Yes no CVA tenderness Back/Spine/Pelvis Back: no CVA tenderness Skin General skin exam: elasticity normal, turgor normal and dry skin Neuro General: patient oriented x3 Psych Appearance: grossly normal Mental Status: mental status grossly normal Speech and movement: Normal speech and movement present Assessment & Plan Assessment & Plan (1) IBS (irritable bowel syndrome): Code(s): K58.9 - Irritable bowel syndrome without diarrhea Qualifiers: Irritable bowel syndrome type: with both diarrhea and constipation Qualified Code(s): K58.2 - Mixed irritable bowel syndrome (2) GERD (gastroesophageal reflux disease): Code(s): K21.9 - Gastro-esophageal reflux disease without esophagitis Qualifiers: Esophagitis presence: esophagitis presence not specified Qualified Code(s): K21.9 - Gastro-esophageal reflux disease without esophagitis Plan Continue current diet and regimen. Patient can continue taking omeprazole in the morning. Avoid dietary triggers and late night snacking. Staying upright for minimal 3 hours after meals discussed with patient. Patient was encouraged to drink plenty fluids and try to increase activity to promote better bowel motility. Continue taking senna and MiraLax on as needed basis. I will see patient in 6 months, sooner on as needed basis. Patient is agreeable to this plan and verbalizes understanding of instructions. She was given the opportunity to ask questions and all questions answered. Thank you for allowing me to participate in her care Coding Level of Care Code Est Pt Level 3 (70948) Diagnoses Irritable bowel syndrome with both constipation and diarrhea K58.2 Irritable bowel syndrome type: with both diarrhea and constipation Gastroesophageal reflux disease, unspecified whether esophagitis present K21.9 Esophagitis presence: esophagitis presence not specified Time Spent (min) 30 Comment 20 minutes spent with patient and additional 10 minutes spent reviewing her records.
[2023-01-16 13:00] VITALS: BP 120/64; PULSE 76; BMI 33.2
== END 2023-01-16 13:37 | disposition home or self-care (01) ==
PROVIDERS: Visit Provider Nurse Practitioner Family
DX: K58.2 Mixed irritable bowel syndrome (principal); K21.9 Gastro-esophageal reflux disease without esophagitis
CPT/HCPCS: 99213

== ENCOUNTER → 2023-01-16 12:42 | Outpatient (BNVA) | payer MEDICARE, SELFPAY | PROVIDERS: Visit Provider Nurse Practitioner Family | DX: K58.2 Mixed irritable bowel syndrome (principal); K21.9 Gastro-esophageal reflux disease without esophagitis | CPT/HCPCS: 99212 ==

== ENCOUNTER 2023-03-09 07:59 | Outpatient (REF) | payer MEDICARE, SELFPAY ==
[2023-03-09 11:12] LABS: MANUAL DIFF FLAG NO
[2023-03-09 11:13] LABS: Basophils Percent Auto 0.5 % (0-2); Eosinophils Absolute Auto 0.1 X10*3/uL (0.0-0.4); Eosinophils Percent Auto 1.4 % (0-4); Hematocrit 51.1 % (37.0-47.0); Hemoglobin 16.5 g/dl (12.0-16.0); Imm Gran Abs Auto 0.01 X10*3/uL (0.00-0.03); Imm Gran Pct Auto 0.2 % (0.0-0.4); Lymphocytes Absolute Auto 1.8 X10*3/uL (1.2-4.9); Lymphocytes Percent Auto 30.2 % (20-40); Mean Corpuscular HGB Conc 32.3 g/dl (31.0-35.0); Mean Corpuscular Hemoglobin 31.5 pg (27.0-33.0); Mean Corpuscular Volume 97.5 fL (80.0-98.0); Mean Platelet Volume 10.7 fL (9.4-12.3); Monocytes Absolute Auto 0.5 X10*3/uL (0.1-1.2); Monocytes Percent Auto 7.8 % (2-11); Neutrophils Absolute Auto 3.5 x10*3/uL (2.0-8.3); Neutrophils Percent Auto 59.9 % (45-73); Platelet Count 132 X10*3/uL (160-400); Red Blood Count 5.24 X10*6/uL (4.20-5.50); Red Cell Distribution Width 14.3 % (11.0-16.0); White Blood Count 5.9 X10*3/uL (4.8-10.8)
[2023-03-09 11:21] LABS: Appearance Urine Clear; Color Urine Yellow; Glucose Urine UA Negative (Negative); Leukocyte Esterase Urine Moderate (2+) (Negative); Nitrite Urine Negative (Negative); UMIC TRIGGER UACC YES; Urine Blood Moderate (2+) (Negative); Urine Ketones Negative (Negative); Urine Protein Negative (Neg-Trace)
[2023-03-09 11:27] LABS: Bacteria Urine None Seen (None Seen); Hyaline Casts Urine 0-2 /LPF (0-2); Squamous Epithelial Cell Urine 0-2 /HPF (0-2); UACC Culture Trigger YES; WBC Urine 21-50 /HPF (0-5)
[2023-03-09 11:37] LABS: Alanine Aminotransferase 10 U/L (0-31); Albumin Level 4.2 g/dL (3.5-5.0); Alkaline Phosphatase 110 U/L (39-117); Anion Gap 12 (12-20); Aspartate Amino Transferase 16 U/L (5-31); Bilirubin Total 0.6 mg/dL (0.0-1.0); Blood Urea Nitrogen 15 mg/dL (9-16); Calcium 9.4 mg/dL (8.4-10.2); Carbon Dioxide 31 mmol/L (22-29); Chloride 104 mmol/L (96-108); Cholesterol 169 mg/dL (<200); Estimated Glomerular Filt Rate 57; Glucose Fasting 101 mg/dL (60-99); HDL Cholesterol 47 mg/dL (>40); LDL Cholesterol Calculated 94 mg/dL (<100); Potassium 4.2 mmol/L (3.3-5.1); Sodium 143 mmol/L (135-145); Triglycerides 140 mg/dL (<150)
[2023-03-09 11:59] LABS: TSH reflex Free T4 1.52 uIU/mL (0.32-4.0)
== END 2023-03-09 08:00 | disposition home or self-care (01) ==
LOC: HO.HMGCLDS 07:59
PROVIDERS: PCP Nurse Practitioner Family; Visit Provider Nurse Practitioner Family
DX: I10 Essential (primary) hypertension (principal); R82.90 Unspecified abnormal findings in urine
CPT/HCPCS: 36415; 80053; 80061; 81001; 84443; 85025; 87086

== ENCOUNTER 2023-03-15 08:30 | Outpatient (AMB) | payer MEDICARE, SELFPAY ==
--- NOTE | 2023-03-15 08:35 | AM.OFFWIN_ITS ---
Intake Vital Signs 03/15/23 08:36 Weight 203 lb BP 118/80 Blood Pressure Location Lt brachial Position Sitting Pulse 71 Pulse Source Pulse Oximeter Pulse Oximetry (%) 98 Oxygen Delivery Method Room Air Intake Visit Reasons: EST/bump on side of genitals (lobby) Intake Note: Patient here for a bump thats been on her labia forever and this morning when she wiped she had blood on the toilet paper. Pt denies any pain or tenderness. Patient Tobacco Use Status: Former Tobacco user Allergies latex [LATEX] Allergy (Intermediate, Verified 03/15/23 08:38) SWELLING hazelnut Allergy (Unknown, Verified 03/15/23 08:38) ANAPHYLAXIS prednisone Adverse Reaction (Unknown, Verified 03/15/23 08:38) Unknown sulfite Adverse Reaction (Unknown, Verified 03/15/23 08:38) Nasal swelling Do you need a note to return to daycare/school/sports/work: No HPI EST/bump on side of genitals (lobby) HPI Details This is an 83 year old female patient who presents today with c/o a small bump on her left labia majora. She noticed this about one month ago and it has not bothered her. Denies any vaginal or urinary symptoms. Denies pain at the site. Denies any fever or chills. States that this morning, she noticed a small amount of blood in her underwear and the small bump was gone. No further bleeding or drainage per patient. [facility] Medical History History of pulmonary embolus (PE) Arthritis Elevated cholesterol DVT (deep venous thrombosis) HTN (hypertension) Surgical History History of colonoscopy History of hysteroscopy (~2013) Hx of cystoscopy (~2000) Hx of tonsillectomy History of phacoemulsification of cataract with intraocular lens implantation Hx of cholecystectomy History of total right knee replacement (TKR) Family History Father No problems noted. Mother No problems noted. Other No family history of cancer Household Members: Spouse Housing: House Are you a primary managed care director to a significant other at home: No Do you presently have visiting nurse or other home services: No Alcohol intake: never Patient Tobacco Use Status: Former Tobacco user Years Smoked: over 20 years ago e-Cigarette/Vaping Use: Never Used Second Hand Smoke Exposure: No service: No Current occupational status: retired Sexual orientation: Straight/Heterosexual Gender identity: Female Cognitive needs: No Hearing needs: No Vision needs: No Review of Systems Const All systems reviewed & are unremarkable except as noted in HPI and below Physical Exam Vital Signs: Last Vital Signs Pulse 71 03/15/23 08:36 BP 118/80 03/15/23 08:36 Pulse Ox 98 03/15/23 08:36 Oxygen Delivery Method Room Air 03/15/23 08:36 Const General: cooperative, healthy appearing and no acute distress Neck Neck: Yes no lymphadenopathy Resp Effort & Inspection: normal respiratory effort and able to speak in complete sentences Other: small pinpoint scab on left labia majora. No redness, warmth, drainage, tenderness to palpation. External Female Exam: normal external appearance Psych Appearance: grossly normal Mental Status: mental status grossly normal Speech and movement: Normal speech and movement present Assessment & Plan Assessment & Plan (1) Lesion of labia: Code(s): N90.89 - Other specified noninflammatory disorders of vulva and perineum Plan: Patient had a small lesion on her labia majora for the last month, which appears to have ruptured earlier this morning. There are no signs of infection, and there is only a small scab where this was. No treatment necessary at this time. If she develops any recurrance of lesion, or redness, swelling, tenderness, warmth, fever/chills, she should return to the clinic for further evaluation. She verbalizes understanding and agrees to plan. Coding Level of Care Code Est Pt Level 3 (46398) Diagnoses Lesion of labia N90.89
[2023-03-15 08:36] VITALS: BP 118/80; PULSE 71; O2SAT 98
== END 2023-03-15 09:17 | disposition home or self-care (01) ==
PROVIDERS: PCP Nurse Practitioner Family; Visit Provider Nurse Practitioner Family
DX: N90.89 Other specified noninflammatory disorders of vulva and perineum (principal)
CPT/HCPCS: 99213

== ENCOUNTER 2023-03-28 08:14 | Outpatient (AMB) | payer MEDICARE, SELFPAY ==
[2023-03-28 09:25] VITALS: BP 130/80; PULSE 76; TEMP 36.6; O2SAT 96
--- NOTE | 2023-03-28 09:25 | MHC.OFFWIV ---
Intake Vital Signs 03/28/23 09:25 Height 5 ft 6 in BP 130/80 Blood Pressure Location Rt brachial Position Sitting Pulse 76 Pulse Source Pulse Oximeter Temp 97.8 F Temp Source Temporal Artery Scan Pulse Oximetry (%) 96 Oxygen Delivery Method Room Air Intake Visit Reasons: EP Pain in neck goes down to shoulder RT side Intake Note: pt is here for c.o pain in neck goes down to shoulder on RT side, a little over 1x week denies injury Patient Tobacco Use Status: Former Tobacco user Allergies latex [LATEX] Allergy (Intermediate, Verified 03/28/23 09:26) SWELLING hazelnut Allergy (Unknown, Verified 03/28/23:) ANAPHYLAXIS prednisone Adverse Reaction (Unknown, Verified 03/28/23:) Unknown sulfite Adverse Reaction (Unknown, Verified 03/28/23:) Nasal swelling Do you need a note to return to daycare/school/sports/work: Yes HPI HPI Comments History of Present Illness Details 0945 83-year-old female history of hearing loss, DVT, hypertension, pulmonary embolism, currently anticoagulated presenting to the emergency department with complaints of right-sided neck pain with radiation into right shoulde at times, progressively worsening over the past week. pain has been ongoing for the past week it, atraumatic in nature, describes as a tight pain, at times worse with movement. Denies headache, visual disturbances, dizziness, chest pain, shortness of breath, nausea, vomiting, fevers, chills, abdominal pain. Physical examination right-sided cervical paraspinous muscle tenderness on palpation in to right-sided trapezius and shoulder region. Normal hand timber management professor bilaterally, no wrist drop. No NIH stroke scale 0 ambulating with steady gait normal coordination. Nonfocal neurological assessment. NIH stroke scale 0. Concerns for cervical sprain/strain versus cervical paraspinous muscle spasm, unlikely cause her rotted dissection, blood clot patient anticoagulated. Unlikely fracture dislocation no signs of cervical myelopathy. Plan at this time Tylenol, Lidoderm patch, tizanidine reassurance. Educated patient on diagnosis and treatment plan, answered all question, patient verbalizes understanding. At this time patient will be discharged home, advised to return with new or worsening symptoms. Educated on worrisome signs and symptoms and when to return. At this time I feel comfortable discharge home. I did discuss the initiation of tizanidine with patient's PCP, patient had unremarkable chemistry on 03/09/2023. No hepatic dysfunction. [facility] Medical History History of pulmonary embolus (PE) Arthritis Elevated cholesterol DVT (deep venous thrombosis) HTN (hypertension) Surgical History History of colonoscopy History of hysteroscopy (~2013) Hx of cystoscopy (~2000) Hx of tonsillectomy History of phacoemulsification of cataract with intraocular lens implantation Hx of cholecystectomy History of total right knee replacement (TKR) Family History Father No problems noted. Mother No problems noted. Other No family history of cancer Social History Household Members: Spouse Housing: House Are you a primary critical care educator to a significant other at home: No Do you presently have visiting nurse or other home services: No Alcohol intake: never Comment: PATIENT INDICATED UNSTEADY ON FEET AND WILL REQUIRE ACCOMPANY HER Patient Tobacco Use Status: Former Tobacco user Years Smoked: over 20 years ago e-Cigarette/Vaping Use: Never Used Second Hand Smoke Exposure: No service: No Current occupational status: retired Sexual orientation: Straight/Heterosexual Gender identity: Female Cognitive needs: No Hearing needs: No Vision needs: No Review of Systems Const Details: Constitutional : No Weight loss, No Fever, No Chills, No Fatigue, No Malaise ENT/Mouth : No sore throat, No Rhinorrhea Eyes: No Eye Pain, No Swelling, No Redness Cardiovascular : No Chest Pain, No SOB, No Dyspnea on Exertion, No Orthopnea, No Edema, No Palpitations Respiratory : No Cough, No Sputum, No Wheezing Gastrointestinal : No Nausea, No Vomiting, No Diarrhea, No Constipation, No abdominal Pain, No Hematochezia, No Melena Genitourinary : No Dysuria, No Urinary Frequency, No Hematuria, Musculoskeletal : No joint pain, No Myalgias, No Joint Swelling, + neck pain Skin : No Skin Lesions, No rash Neuro : No Weakness, No Numbness, No Dizziness, No Headache Psych : No Anxiety/Panic, No Depression All other systems reviewed and are negative All systems reviewed & are unremarkable except as noted in HPI and below Physical Exam Vital Signs: Last Vital Signs Temp 97.8 F 03/28/23 09:25 Pulse 76 03/28/23 09:25 BP 130/80 03/28/23 09:25 Pulse Ox 96 03/28/23 09:25 Oxygen Delivery Method Room Air 03/28/23 09:25 vss Appearance: Alert.? Oriented X3.? No acute distress.? Head: Normocephalic, atraumatic, no step-offs or deformities Eyes: Pupils equal, round and reactive to light.? Extraocular movements intact pain-free ENT: Pharynx normal.? Neck: Normal inspection.? Neck supple.? right-sided cervical paraspinous muscle tenderness on palpation in to right-sided trapezius and shoulder region. Normal hand timber management professor bilaterally CVS: Normal heart rate and rhythm.? Pulses normal.? Respiratory: No respiratory distress.? Breath sounds normal.? Abdomen: Soft and nontender.? Skin: Skin warm and dry.? Normal skin color.? Normal skin turgor.? Extremities: No lower extremity edema.? No calf ttp. 5/5 strength to bilateral upper and lower extremities Neuro: Oriented X 3.? No motor deficit.? No sensory deficit. CN 2-12 intact . Ambulating with steady gait normal coordination Assessment & Plan Assessment & Plan (1) Cervical paraspinous muscle spasm: Code(s): M62.838 - Other muscle spasm (2) Neck pain: Code(s): M54.2 - Cervicalgia Plan Take your medications as prescribed. If you were prescribed antibiotics today, it is important that you take your medication to their entirety, do not skip any doses, do not finish them early. Follow-up with your primary care provider this week. Return to the emergency department with new or worsening symptoms. Such as fevers, chills, chest pain, shortness of breath, nausea, vomiting, dizziness, headache, vision changes, lethargy In case of emergency call 911 Orders: Orders AMB EKG-In Office Today M54.2 - Cervicalgia, M62.838 - Other muscle spasm Medications: New acetaminophen (Tylenol) 650 mg (2 x 325 mg) PO Q4H PRN 30 caps 0RF fever lidocaine 4% (AsperFlex (lidocaine)) 1 patch topical DAILY PRN 15 ea 0RF pain tizanidine 2 mg PO BID PRN 20 caps 0RF muscle spasticity Coding Level of Care Code Est Pt Level 3 (19232) Diagnoses Cervical paraspinous muscle spasm M62.838 Neck pain M54.2
== END 2023-03-28 10:25 | disposition home or self-care (01) ==
PROVIDERS: PCP Nurse Practitioner Family; Visit Provider Physician Assistant
DX: M62.838 Other muscle spasm (principal); M54.2 Cervicalgia; I82.409 Acute embolism and thrombosis of unspecified deep veins of unspecified lower extremity
CPT/HCPCS: 99213

== ENCOUNTER 2023-04-03 14:54 | Outpatient (AMB) | payer MEDICARE, SELFPAY ==
--- NOTE | 2023-04-03 15:09 | MHC.PC.OV ---
Vital Signs 04/03/23 15:10 Weight 201 lb BP 118/74 Blood Pressure Location Rt brachial Position Sitting Pulse 64 Pulse Source Pulse Oximeter Pulse Oximetry (%) 98 Oxygen Delivery Method Room Air Intake Visit Reasons: 4 month fu Allergies latex [LATEX] Allergy (Intermediate, Verified 04/03/23 17:44) SWELLING hazelnut Allergy (Unknown, Verified 04/03/23 17:44) ANAPHYLAXIS prednisone Adverse Reaction (Unknown, Verified 04/03/23 17:44) Unknown sulfite Adverse Reaction (Unknown, Verified 04/03/23 17:44) Nasal swelling Medication List - Last Reconciled 04/03/23 by VENESSA Luu acetaminophen (Pain Relief (acetaminophen)) 1,000 mg PO Q6H PRN acetaminophen (Tylenol) 650 mg (2 x 325 mg) PO Q4H PRN amlodipine 2.5 mg PO DAILY apixaban (Eliquis) 5 mg PO BID 90 days atorvastatin 10 mg PO DAILY 90 days cholecalciferol (vitamin D3) 50 mcg PO DAILY commode As directed irbesartan 75 mg PO DAILY 90 days lidocaine 4% (AsperFlex (lidocaine)) 1 patch topical DAILY PRN omeprazole 40 mg PO DAILY sennosides (senna) 8.6 mg PO BEDTIME tizanidine 2 mg PO BID PRN Tobacco use date assessed: 12/05/22 Fall risk assessment: No Falls in past year Last assessed Fall Risk: 04/03/23 HPI 4 month fu HPI Details Pt was seen in the walk-in on 03/28 c/o right-sided neck pain radiating to her right shoulder. She was given tylenol, lidocaine patches, and tizanidine (though did not start the tizanidine yet). Pt reports ongoing pain, though it is getting a little better. Appears to be occipital muscle strain. Recommended biofreeze. Denies fever, chills, and dizziness. [facility] Medical History History of pulmonary embolus (PE) Arthritis Elevated cholesterol DVT (deep venous thrombosis) HTN (hypertension) Surgical History History of colonoscopy History of hysteroscopy (~2013) Hx of cystoscopy (~2000) Hx of tonsillectomy History of phacoemulsification of cataract with intraocular lens implantation Hx of cholecystectomy History of total right knee replacement (TKR) Family History Father No problems noted. Mother No problems noted. Other No family history of cancer Social History Household Members: Spouse Housing: House Are you a primary laboratory animal care veterinarian to a significant other at home: No Do you presently have visiting nurse or other home services: No Alcohol intake: never Comment: PATIENT INDICATED UNSTEADY ON FEET AND WILL REQUIRE ACCOMPANY HER Patient Tobacco Use Status: Former Tobacco user Years Smoked: over 20 years ago e-Cigarette/Vaping Use: Never Used Second Hand Smoke Exposure: No service: No Current occupational status: retired Sexual orientation: Straight/Heterosexual Gender identity: Female Cognitive needs: No Hearing needs: No Vision needs: No Questionnaire Thrive Questionnaire Date Thrive assessed: 10/04/21 TIA-7 AMB Questionnaire TIA-7 Date TIA - 7 assessed: 10/04/21 Source: Developed by Drs. Luis Angel Ny, Pamela Celestin, Sudeep Jennings and colleagues, with an educational gianna from [employer]. Review of Systems Const Reports as per HPI Physical exam (Primary Care) Vital Signs: Last Vital Signs Pulse 64 04/03/23 15:10 BP 118/74 04/03/23 15:10 Pulse Ox 98 04/03/23 15:10 Oxygen Delivery Method Room Air 04/03/23 15:10 Tobacco/Smoking Status: Tobacco use Status Tobacco use date assessed 12/05/22 04/03/23 15:12 Patient Tobacco Use Status Former Tobacco user 04/03/23 15:12 e-Cigarette/Vaping Use Never Used 04/03/23 15:12 Thrive Assessment: Date of Thrive Assessment Date Thrive assessed 10/04/21 04/03/23 15:12 Const General: cooperative Nutritional Appearance: obese HENMT Head: Yes normal to inspection and Yes atraumatic Resp Effort & Inspection: normal respiratory effort Auscultation: clear to auscultation bilaterally Cardio Rate: regular rate Rhythm: regular rhythm Heart sounds: S1 normal heart sound present and S2 normal heart sound present Extrem Other: turning head side to side, tenderness noted to right occipital region. faint tenderness with palpation, radiates inferiorly to bacse of neck. Psych Appearance: grossly normal Mental Status: mental status grossly normal Speech and movement: Normal speech and movement present Affect: normal affect Attitude: cooperative Thought process: Normal thought process present Thought content: Normal thought content present Insight: Good insight present (Psych) Judgement: Good judgement present (Psych) Assessment and Plan Assessment & Plan (1) Muscle strain: Code(s): T14.8XXA - Other injury of unspecified body region, initial encounter Plan: Recommended biofreeze Plan The patient agreed to the use of a certified ophthalmic medical technician for this encounter. Scribed for VENESSA Colvin by Leeann Pan certified ophthalmic medical technician, on 04/03/2023 at 15:30 EST. Coding Level of Care Code Est Pt Level 3 (38836) Diagnoses Muscle strain T14.8XXA
[2023-04-03 15:10] VITALS: BP 118/74; PULSE 64; O2SAT 98
== END 2023-04-03 16:45 | disposition home or self-care (01) ==
PROVIDERS: PCP Nurse Practitioner Family; Visit Provider Nurse Practitioner Family
DX: T14.8XXA Other injury of unspecified body region, initial encounter (principal)
CPT/HCPCS: 99213

== ENCOUNTER 2023-05-13 08:07 | Emergency (ER) | payer MEDICARE, SELFPAY ==
--- NOTE | ~2023-05-13 | CT_ITS ---
EXAMINATION: CT abdomen pelvis w IV con CLINICAL INFORMATION: Reason for Exam lower abdominal pain with diarrhea COMPARISON: Prior CT scan from 2021 TECHNIQUE: Multidetector volumetric imaging was performed from the superior aspect of the liver through the pubic symphysis 85 mL of Omnipaque 350 injected Sagittal and coronal reformatted images were obtained on the technologist's workstation. This CT examination was performed using dose optimization techniques as appropriate, variously including the following: *Automated exposure control *Adjustment of mA and/or kV according to patient size (this includes techniques or standardized protocols for targeted exams where dose is matched to indication/reason for exam; i.e. extremities or head) *Use of iterative reconstruction technique DLP: 1497 mGy-cm FINDINGS: LOWER THORAX: Included lung bases are clear. HEPATOBILIARY: There is heterogeneous solid enhancing liver mass involving the right lobe of the liver segment 5/6 measures approximately 6.7 x 6.8 cm refer image 29 series of 3 concerning for neoplasm primary or metastatic. This may require correlation with follow-up dynamically enhanced MRI. GALLBLADDER: Gallbladder has been removed. SPLEEN: Spleen is normal in size. PANCREAS: No focal mass or ductal dilatation. STOMACH AND GASTROINTESTINAL TRACT: Stomach is grossly unremarkable. There is heavy sigmoid diverticulosis without CT evidence of acute diverticulitis. Normal appendix identified. ADRENALS: No adrenal nodules. KIDNEYS/URETERS: Redemonstration of multiple large bilateral simple renal cysts, these are simple cyst Bosniak class I commonly benign, no follow-up is required. The largest on the right measure up to 8.7 cm mostly unchanged from prior exams. No CT evidence of kidney stone or hydronephrosis. URINARY BLADDER: Partially decompressed. PELVIC VISCERA: Unremarkable PERITONEUM: No free air or fluid. LYMPH NODES: No lymphadenopathy. VASCULAR:Heavy aortic vascular calcifications without evidence of aneurysm. 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 Spondylosis of the lumbar spine. No fractures, no destructive bone lesion. CT/CT abdomen pelvis w IV con IMPRESSION: 1. There is newly found heterogeneous solid enhancing liver mass involving the right lobe of the liver, segment 5/6. Measures up to 6.8 cm concerning for neoplasm primary or metastatic, atypical appearance for hemangioma, less likely infection. Recommend correlation with follow-up dynamically enhanced MRI and/or ultrasound.. 2. Heavy sigmoid diverticulosis without evidence of acute diverticulitis. 3. 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 4. Spondylosis of the lumbar spine. (Referring physician staff is being called, by physician staff assistance, to be alerted of the above critical findings and recommendations.) A J 05/13/2023 11:52 AM
[2023-05-13 08:24] VITALS: BP 171/95; PULSE 79; RESP 18; O2SAT 95; BMI 32.8
--- NOTE | 2023-05-13 08:31 | ED_ITS ---
HPI - Nausea/Vomiting/Diarrhea General Chief complaint: Nausea/Vomiting/Diarrhea Stated complaint: diarrhea Time Seen by Provider: 05/13/23 08:14 Source: patient and family Mode of arrival: ambulatory History of Present Illness HPI Narrative: This is an 83-year-old female who presents from home with multiple episodes of watery diarrhea since yesterday, she denies any sick contacts, denies any use of antibiotics within the past 90 days, denies any recent travel and does not feel that this would be associated with any contaminated food. Patient denies any associated intra-abdominal surgeries, nausea, vomiting, urinary symptoms. Related Data Home Medications Medication Instructions Recorded Confirmed acetaminophen 500 mg tablet (Pain 1,000 mg PO Q6H PRN Pain 01/23/20 04/04/23 Relief (acetaminophen)) omeprazole 40 mg capsule,delayed 40 mg PO DAILY 01/23/20 04/04/23 release sennosides 8.6 mg tablet (senna) 8.6 mg PO BEDTIME constipation 07/13/22 04/04/23 Previous Rx's Medication Instructions Recorded commode #1 ea 07/31/20 irbesartan 75 mg tablet 75 mg PO DAILY 90 days #90 tabs 10/10/22 cholecalciferol (vitamin D3) 50 50 mcg PO DAILY #90 caps 12/22/22 mcg (2,000 unit) capsule acetaminophen 325 mg capsule 650 mg (2 x 325 mg) PO Q4H PRN 03/28/23 (Tylenol) fever #30 caps lidocaine 4 % topical patch 1 patch topical DAILY PRN pain #15 03/28/23 (AsperFlex (lidocaine)) ea tizanidine 2 mg capsule 2 mg PO BID PRN muscle spasticity 03/28/23 #20 caps apixaban 5 mg tablet (Eliquis) 5 mg PO BID 90 days #180 tabs 04/04/23 amlodipine 2.5 mg tablet 2.5 mg PO DAILY #90 tabs 04/19/23 atorvastatin 10 mg tablet 10 mg PO DAILY 90 days #90 tabs 05/04/23 Allergies Allergy/AdvReac Type Severity Reaction Status Date / Time latex [LATEX] Allergy Intermediate SWELLING Verified 05/13/23 08:24 hazelnut Allergy Unknown ANAPHYLAXIS Verified 05/13/23 08:24 prednisone AdvReac Unknown Unknown Verified 05/13/23 08:24 sulfite AdvReac Unknown Nasal Verified 05/13/23 08:24 swelling Review of Systems 2 Review of Systems: Pertinent positives and negatives as stated in HPI [facility] Past Medical History Source: nursing notes reviewed Onset Date is defined in the Problem List Problems that require an onset date and time if occurred within 24 hrs of arrival to the ED Aortic Dissection and Rupture; Neurologic impairment; Cardiopulmonary Arrest; Endotracheal Intubation; Insertion or Replacement of Mechanical Circulatory Assist Device Medical History History of pulmonary embolus (PE) Arthritis Elevated cholesterol DVT (deep venous thrombosis) HTN (hypertension) Surgical History History of colonoscopy History of hysteroscopy (~2013) Hx of cystoscopy (~2000) Hx of tonsillectomy History of phacoemulsification of cataract with intraocular lens implantation Hx of cholecystectomy History of total right knee replacement (TKR) Family History Family History Father No problems noted. Mother No problems noted. Other No family history of cancer Social History Social History Household Members: Spouse Housing: House Are you a primary patient care provider to a significant other at home: No Do you presently have visiting nurse or other home services: No Alcohol intake: never Comment: PATIENT INDICATED UNSTEADY ON FEET AND WILL REQUIRE ACCOMPANY HER Patient Tobacco Use Status: Former Tobacco user Years Smoked: over 20 years ago Smoked in Last 30 Days: No e-Cigarette/Vaping Use: Never Used Second Hand Smoke Exposure: No Use of substances other than those prescribed or required for medical reasons: No Advance Directives: No Advance Directives Information Provided: No service: No Current occupational status: retired Sexual orientation: Straight/Heterosexual Gender identity: Female Cognitive needs: No Hearing needs: No Vision needs: No Physical Exam 2 Vital Signs: Vital Signs: Last Vital Signs Temp 97.9 F 05/13/23 10:38 Pulse 70 05/13/23 10:38 Resp 16 05/13/23 10:38 BP 129/86 05/13/23 10:38 Pulse Ox 95 05/13/23 10:38 O2 Del Method Room Air 05/13/23 10:38 BMI result Body Mass Index 32.8 VITAL SIGNS: Reviewed. GENERAL: Well developed, well nourished, in no acute distress. HEAD: Normocephalic/atraumatic EYES: PERRLA, EOMI EARS: Ext canals without abnormality NOSE: Nares patent bilateral OROPHARYNX: no oral lesions noted, posterior pharynx clear NECK: Supple, no adenopathy LUNGS: Normal breath sounds. No adventitious sounds or accessory muscle use. SpO2<95> CARDIOVASCULAR: Regular rate and rhythm without noted murmurs, no JVD or lower extremity edema. ABDOMEN: Soft, lower abdominal discomfort maximal at right lower quadrant/suprapubic, non-distended with bowel sounds. MUSCULOSKELETAL: No tenderness, deformities, or effusions noted on gross inspection. EXTREMITIES: No cyanosis, clubbing or edema. SKIN: Inspection of the skin reveals no rashes NEUROLOGIC: Alert and oriented x 4. Strength and sensation to light touch were grossly intact x 4. Medications Administered Discontinued Medications Generic Name Dose Route Start Last Admin Trade Name Freq PRN Reason Stop Dose Admin Sodium Chloride 500 mls @ 999 mls/hr 05/13/23 11:15 05/13/23 11:49 Ns IV 05/13/23 11:45 Not Given .Q31M ADELAIDA Iohexol 100 ml 05/13/23 11:07 05/13/23 11:08 Iohexol 350 Mg/Ml 100 Ml Infus..Btl IV 05/13/23 11:08 85 ml ONCE ONE Administration Medical Decision Making Medical Decision Making [facility] Narrative: 0835: 83-year-old female with history and clinical presentation, DDX: Gastroenteritis, food poisoning, diverticulitis, very low clinical suspicion for appendicitis/SBO/UTI or renal colic. Patient has had no further diarrheal episodes. I reviewed all investigations and hematologic indices are negative for leukocytosis although there is a mild left shift, there is no anemia any chronically stable thrombocytopenia. Coagulation studies are reflective of chronic use of Eliquis. Chemistry indices do not demonstrate an NOLBERTO or electrolyte/liver enzyme derangements. COVID-19 is negative. 1201: I received a call from Radiology regarding the CT scan findings, there is a 6.8 cm right lobe liver mass concerning for possible primary versus metastatic neoplasm. 1255: I discussed the above findings with the patient and her at bedside and inform them that the next steps would be further imaging study in the form of an MRI as well as likely biopsy and more lab work. I will be sending a copy of this note to Dr. Li as well as patient's primary care doctor. She has had no further episodes of diarrhea and will otherwise be discharged home. Differential Diagnosis Differential Diagnoses: The differential diagnosis associated with the presentation includes Please see the discussion above Admission/Observation Consideration of admission/observation: Escalation of care including admission/observation considered Please see the discussion above Lab Data MDM Lab Attestation statement: I reviewed the patient's lab results. Please see the discussion above 05/13/23 08:48 05/13/23 09:09 Labs: Lab Results 05/13/23 05/13/23 05/13/23 Range/Units 08:48 09:09 11:55 WBC 6.5 (4.8-10.8) X10*3/uL RBC 5.05 (4.20-5.50) X10*6/uL Hgb 15.9 (12.0-16.0) g/dl Hct 47.3 H (37.0-47.0) % MCV 93.7 (80.0-98.0) fL MCH 31.5 (27.0-33.0) pg MCHC 33.6 (31.0-35.0) g/dl RDW 13.5 (11.0-16.0) % Plt Count 126 L (160-400) X10*3/uL MPV 10.4 (9.4-12.3) fL Immature Gran % (Auto) 0.3 (0.0-0.4) % Neut % (Auto) 75.3 H (45-73) % Lymph % (Auto) 17.5 L (20-40) % Yancey % (Auto) 6.1 (2-11) % Eos % (Auto) 0.3 (0-4) % Baso % (Auto) 0.5 (0-2) % Lymph # (Auto) 1.1 L (1.2-4.9) X10*3/uL [place]ancey # (Auto) 0.4 (0.1-1.2) X10*3/uL Eos # (Auto) 0.0 (0.0-0.4) X10*3/uL Baso # (Auto) 0.0 (0.0-0.2) X10*3/uL Abs Immat Gran (auto) 0.02 (0.00-0.03) X10*3/uL Absolute Neuts (auto) 4.9 (2.0-8.3) x10*3/uL Absolute Nucleated RBC 0.000 (0.0-0.012) X10*3/uL Nucleated RBC % (auto) 0.0 (0.0-0.2) /100WBC PT 16.0 H (11.1-13.3) SEC INR 1.3 H (0.9-1.1) Sodium 142 (135-145) mmol/L Potassium 4.3 (3.3-5.1) mmol/L Chloride 103 (96-108) mmol/L Carbon Dioxide 27 (22-29) mmol/L Anion Gap 16 (12-20) BUN 17 H (9-16) mg/dL Creatinine 0.90 (0.5-1.4) mg/dL Estim Creat Clear Calc 53.2 Estimated GFR 60 Random Glucose 120 H (60-115) mg/dL Calcium 9.9 (8.4-10.2) mg/dL Total Bilirubin 0.8 (0.0-1.0) mg/dL AST 16 (5-31) U/L ALT 9 (0-31) U/L Alkaline Phosphatase 122 H (39-117) U/L Total Protein 7.2 (6.5-8.0) g/dL Albumin 4.3 (3.5-5.0) g/dL Urine Color Yellow Urine Appearance Clear Urine pH 7.5 (5.0-9.0) Ur Specific [place] >= 1.030 H (1.005-1.025) Urine Protein Negative (Neg-Trace) mg/dL Urine Glucose (UA) Negative (Negative) mg/dL Urine Ketones Negative (Negative) mg/dL Urine Blood Trace H (Negative) Urine Nitrite Negative (Negative) Ur Leukocyte Esterase Negative (Negative) Urine RBC 3-5 H (0-2) /HPF Urine WBC 0-5 (0-5) /HPF Ur Squamous Epith Cells 0-2 (0-2) /HPF Urine Bacteria None Seen (None Seen) Hyaline Casts 0-2 (0-2) /LPF COVID-19 (AREN) Negative (Negative) COVID-19 Clin Com See Note Independent Interpretation I performed an independent interpretation of an: EKG Interpretation: Sinus rhythm with PACs, HR-67, no STEMI, [place] -202, QRS/QTC is within normal limits. Radiology Impression Discussion of test interpretation with radiology: I have reviewed the radiologist's reading. Radiologist Impression: Please see the discussion above External Record Review External record reviewed: Outpatient record, Prior outpatient labs and Prior outpatient radiology Chronic Conditions Patient?s care impacted by: Hypertension Critical Care Time Critical Care Time Critical Care Time: Yes Total Critical Care Time: 45 Attestation: I personally attest to this time spent taking care of the patient. Discharge Plan Discharge Clinical Impression: Diarrhea, Gastroenteritis, Liver mass, right lobe Patient Disposition: Home, Self-Care Instructions: Nutrition Tips for Relief of Diarrhea (ED), Gastroenteritis (ED) Additional Instructions: 1. Resume all home medications as prescribed. 2. Please call your primary care doctor as well as Dr. Li on Monday morning, you will likely need an MRI as well as biopsy to further characterize the liver mass that was identified on the CT scan today. Do not hesitate to return to the emergency room for any worsening or recurrence of symptoms. Prescriptions: No Action (DME) commode Kit See Rx Instructions .ROUTE .MEDSUPPLY Qty: 1 0RF Rx Instructions: As directed irbesartan 75 mg tablet 75 mg PO DAILY 90 Days Qty: 90 2RF cholecalciferol (vitamin D3) 50 mcg (2,000 unit) capsule 50 mcg PO DAILY Qty: 90 3RF amlodipine 2.5 mg tablet 2.5 mg PO DAILY Qty: 90 1RF atorvastatin 10 mg tablet 10 mg PO DAILY 90 Days Qty: 90 1RF Eliquis 5 mg tablet 5 mg PO BID 90 Days Qty: 180 3RF omeprazole 40 mg capsule,delayed release(DR/EC) 40 mg PO DAILY acetaminophen [Pain Relief (acetaminophen)] 500 mg tablet 1,000 mg PO Q6H PRN (Reason: Pain) lidocaine [AsperFlex (lidocaine)] 4 % adhesive patch,medicated 1 patch topical DAILY PRN (Reason: pain) Qty: 15 0RF acetaminophen [Tylenol] 325 mg capsule 650 mg PO Q4H PRN (Reason: fever) Qty: 30 0RF tizanidine 2 mg capsule 2 mg PO BID PRN (Reason: muscle spasticity) Qty: 20 0RF sennosides [senna] 8.6 mg tablet 8.6 mg PO BEDTIME Referrals: Santos Reyez, [employer] [Primary Care Provider] - Edwige Li MD [Physician] -
--- NOTE | 2023-05-13 08:31 | ECG_ITS ---
Test Reason : HYPERTENTION Blood Pressure : / mmHG Vent. Rate : 067 BPM Atrial Rate : 067 BPM P-R Int : 202 ms QRS Dur : 082 ms QT Int : 394 ms P-R-T Axes : 105 -35 043 degrees QTc Int : 416 ms Sinus rhythm with Premature supraventricular complexes Left axis deviation Minimal voltage criteria for LVH, may be normal variant ( R in aVL ) Septal infarct , age undetermined Abnormal ECG When compared with ECG of 16-JAN-2014 10:50, Septal infarct is now Present Nonspecific T wave abnormality now evident in Anterior leads Referred By: Colette Brady Electronically Signed By:KASANDRA OLIVER
--- NOTE | 2023-05-13 08:52 | PC.NURSE ---
a&ox4, vss and up to date. pt presents to the ED d/t new onset diarrhea/abd pain since yesterday. denies n/v. tender upon palpation. pt seen by ED provider. 20gIV placed in the right AC - labs obtained/sent to lab. pt provided w/ hat and urine cup so samples can be collected. no sob/wob noted. respirations even and unlabored. pt aware of plan of care at this time. beside for support. call sawyer placed within reach.
[2023-05-13 08:54] LABS: MANUAL DIFF FLAG NO
[2023-05-13 08:56] LABS: Eosinophils Percent Auto 0.3 % (0-4); Imm Gran Abs Auto 0.02 X10*3/uL (0.00-0.03); Imm Gran Pct Auto 0.3 % (0.0-0.4); PLT CLUMP 1; SCAN SMEAR FLAG 1
[2023-05-13 08:58] LABS: Basophils Percent Auto 0.5 % (0-2); Hematocrit 47.3 % (37.0-47.0); Hemoglobin 15.9 g/dl (12.0-16.0); Lymphocytes Absolute Auto 1.1 X10*3/uL (1.2-4.9); Lymphocytes Percent Auto 17.5 % (20-40); Mean Corpuscular HGB Conc 33.6 g/dl (31.0-35.0); Mean Corpuscular Hemoglobin 31.5 pg (27.0-33.0); Mean Corpuscular Volume 93.7 fL (80.0-98.0); Mean Platelet Volume 10.4 fL (9.4-12.3); Monocytes Absolute Auto 0.4 X10*3/uL (0.1-1.2); Monocytes Percent Auto 6.1 % (2-11); Neutrophils Absolute Auto 4.9 x10*3/uL (2.0-8.3); Neutrophils Percent Auto 75.3 % (45-73); Red Blood Count 5.05 X10*6/uL (4.20-5.50); Red Cell Distribution Width 13.5 % (11.0-16.0)
[2023-05-13 08:59] LABS: Platelet Count 126 X10*3/uL (160-400); White Blood Count 6.5 X10*3/uL (4.8-10.8)
[2023-05-13 09:01] LABS: INTERNATIONAL NORM RATIO 1.3 (0.9-1.1)
[2023-05-13 09:12] LABS: COVID-19 Test Negative (Negative); IDNOW Serial# 152EDE1D
[2023-05-13 09:28] LABS: Alanine Aminotransferase 9 U/L (0-31); Albumin Level 4.3 g/dL (3.5-5.0); Alkaline Phosphatase 122 U/L (39-117); Anion Gap 16 (12-20); Aspartate Amino Transferase 16 U/L (5-31); Bilirubin Total 0.8 mg/dL (0.0-1.0); Blood Urea Nitrogen 17 mg/dL (9-16); Calcium 9.9 mg/dL (8.4-10.2); Carbon Dioxide 27 mmol/L (22-29); Chloride 103 mmol/L (96-108); Creatinine Clr Calc Pharmacy 53.2; Estimated Glomerular Filt Rate 60; Glucose Random 120 mg/dL (60-115); Potassium 4.3 mmol/L (3.3-5.1); Sodium 142 mmol/L (135-145); Total Protein 7.2 g/dL (6.5-8.0)
[2023-05-13 10:38] VITALS: BP 129/86; PULSE 70; RESP 16; TEMP 36.6; O2SAT 95
--- NOTE | 2023-05-13 10:45 | PC.NURSE ---
pt to CT at this time.
[2023-05-13] MEDS: iohexoL 350 MG/ML 100 ML INFUS..BTL IV (11:08)
--- NOTE | 2023-05-13 11:55 | PC.NURSE ---
urine obtained/sent to lab. pt waiting on CT results at this time.
[2023-05-13 12:06] LABS: Appearance Urine Clear; Color Urine Yellow; Glucose Urine UA Negative (Negative); Leukocyte Esterase Urine Negative (Negative); Nitrite Urine Negative (Negative); PH 7.5 (5.0-9.0); Specific Gravity - Urine >= 1.030 (1.005-1.025); UMIC TRIGGER UACC YES; Urine Blood Trace (Negative); Urine Ketones Negative (Negative); Urine Protein Negative (Neg-Trace)
[2023-05-13 12:10] LABS: Bacteria Urine None Seen (None Seen); Hyaline Casts Urine 0-2 /LPF (0-2); Squamous Epithelial Cell Urine 0-2 /HPF (0-2); WBC Urine 0-5 /HPF (0-5)
--- NOTE | 2023-05-13 12:47 | PC.NURSE ---
pt speaking w/ ED provider about results of CT scan at this time.
== END 2023-05-13 13:33 | disposition home or self-care (01) ==
PROVIDERS: Emergency Provider Student in an Organized Health Care Education/Training Program; PCP Nurse Practitioner Family
DX: K52.9 Noninfective gastroenteritis and colitis, unspecified (principal); R16.0 Hepatomegaly, not elsewhere classified; Z11.52 Encounter for screening for COVID-19; I10 Essential (primary) hypertension; E78.5 Hyperlipidemia, unspecified; Z79.02 Long term (current) use of antithrombotics/antiplatelets; Z79.899 Other long term (current) drug therapy
CPT/HCPCS: 36415; 74177; 80053; 81001; 85025; 85610; 87635; 93005; 99284; 99285; Q9967

== ENCOUNTER → 2023-05-13 08:31 | Outpatient (BNV) | payer MEDICARE, SELFPAY | PROVIDERS: Emergency Provider Student in an Organized Health Care Education/Training Program; PCP Nurse Practitioner Family; Visit Provider Internal Medicine | DX: R94.31 Abnormal electrocardiogram [ECG] [EKG] (principal) | CPT/HCPCS: 93010 ==

== ENCOUNTER 2023-05-16 15:03 | Outpatient (REF) | payer MEDICARE, SELFPAY ==
--- NOTE | ~2023-05-16 | MR_ITS ---
EXAMINATION: MR ABDOMEN WITHOUT AND WITH CONTRAST CLINICAL INFORMATION: Liver lesion seen on CT COMPARISON: Abdominal and pelvic CT most recent April TECHNIQUE: MR abdomen was performed without and with use of 10 mL intravenous Gadavist gadolinium contrast. Postcontrast images are performed in multiphase dynamic sequences. Imaging was performed in 3 planes. FINDINGS: LUNG BASES: The visualized lung bases are unremarkable. LIVER, GALLBLADDER, AND BILIARY TREE: Mild fatty infiltration of the liver. The liver is normal in size and contour. 5.5 x 7 cm slightly lobulated lesion in the anterior segment of the right lobe of the liver possibly involving some of the medial segment of the left lobe and posterior segment of the right lobe. This is low signal on T1 and slightly high signal on T2-weighted sequences. This demonstrates heterogeneous predominantly peripheral enhancement. This has small nonenhancing central areas questionable for cystic change or necrosis. There is remains enhanced respect to the remainder of the liver on all sequences. No other focal liver lesion. The gallbladder is been removed. No biliary duct dilatation. PANCREAS: Unremarkable. SPLEEN: Normal. ADRENAL GLANDS: Normal. KIDNEYS AND URETERS: There are bilateral multiple large renal cysts. There is a 7 x 9 cm cyst posterior to the right kidney and displaces kidney anterior medially. No imaging follow-up recommended. The kidneys are otherwise unremarkable. GASTROINTESTINAL TRACT: Diverticulosis of the colon. No bowel obstruction. No ascites or fluid collection. ABDOMINAL WALL: No significant hernia is appreciated. LYMPH NODES: No lymphadenopathy. 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 The descending thoracic aorta is slightly dilated measuring 3.3 x 3.7 cm. The abdominal aorta is normal in caliber. OSSEOUS STRUCTURES: There is a 1.5 x 2 cm T2 bright lesion in the T9 vertebral body this is not seen on axial images but has an abnormal lobulated lateral contour for example coronal image 4 series 3 that would be atypical for a benign hemangioma MR/MR abdomen wo/w con IMPRESSION: 5.5 x 7 cm lobulated heterogeneous mass in the anterior segment of the right lobe of the liver involving some of medial segment of the left lobe and anterior segment of the right lobe. Appearance is concerning for neoplasm. Mild fatty infiltration of the liver. 1.5 x 2 cm lesion in the T9 prevertebral body. This is not seen on all sequences and incompletely characterized but has a lobulated contour which would be atypical for a benign hemangioma. Atherosclerotic disease and mild dilatation of the descending thoracic aorta. Diverticulosis.
[2023-05-16] MEDS: gadobutroL 10 ML VIAL IVPUSH (16:12)
== END 2023-05-16 15:04 | disposition home or self-care (01) ==
LOC: HO.MRI 15:03
PROVIDERS: PCP Nurse Practitioner Family; Visit Provider Internal Medicine Medical Oncology
DX: R16.0 Hepatomegaly, not elsewhere classified (principal)
CPT/HCPCS: 74183; A9585

== ENCOUNTER 2023-05-24 09:13 | Outpatient (REF) | payer MEDICARE, SELFPAY ==
--- NOTE | ~2023-05-24 | MM_ITS ---
EXAMINATION: MM SCREENING DIGITAL BREAST TOMOSYNTHESIS, BILATERAL CLINICAL INFORMATION: Screening. Asymptomatic. COMPARISON: Mammography: This study is compared with prior exams dating back to 2009. TECHNIQUE: Digital breast tomosynthesis is performed in both the craniocaudal and mediolateral oblique views along with computer-aided detection (CAD). Synthesized 2D images are generated from the tomosynthesis. FINDINGS: The breasts are almost entirely fatty (ACR BI-RADS breast composition Category a). There is a focal asymmetry of the upper outer quadrant of the right breast which warrants additional mammographic and targeted sonographic imaging. In the left breast, there are no significant masses, abnormal calcifications, or other abnormalities. MM/MM tomosynthesis screening BI IMPRESSION: Focal asymmetry of the upper outer quadrant of the right breast warrants additional mammographic and targeted sonographic imaging. No mammographic signs of malignancy left breast. ASSESSMENT: BI-RADS BI-RADS 0 - Incomplete: Needs additional Imaging. RECOMMENDATION: 1. Additional views of the right breast. 2. Targeted ultrasound if warranted after review of the additional views. 3. Radiology department staff will contact the patient for additional imaging. Additional Imaging required This examination should not preclude the clinical evaluation of a suspicious palpable abnormality. This patient's information was entered into a reminder system with a target due date for their next mammogram.
== END 2023-05-24 09:14 | disposition home or self-care (01) ==
LOC: HO.MAMMO 09:13
PROVIDERS: PCP Nurse Practitioner Family; Visit Provider Internal Medicine Medical Oncology
DX: Z12.31 Encounter for screening mammogram for malignant neoplasm of breast (principal)
CPT/HCPCS: 77063; 77067

== ENCOUNTER → 2023-05-24 09:30 | Outpatient (BNV) | payer MEDICARE, SELFPAY | PROVIDERS: PCP Nurse Practitioner Family; Visit Provider Radiology Diagnostic Radiology | DX: Z12.31 Encounter for screening mammogram for malignant neoplasm of breast (principal) | CPT/HCPCS: 77063; 77067 ==

== ENCOUNTER 2023-05-29 07:52 | Day surgery (SDC) | payer MEDICARE, SELFPAY ==
[2023-05-29] VITALS (10 sets, daily range): BP systolic 109–138; BP diastolic 60–79; PULSE 55–61; RESP 14–17; TEMP 36.2; O2SAT 96–99; BMI 36.5
--- NOTE | ~2023-05-29 | US_ITS ---
CLINICAL HISTORY: Right lobe liver mass PROCEDURES: 1. Limited preprocedure ultrasound of the abdomen. Permanent images saved in PACS. 2. Total of 4 core biopsies of the liver mass. 3. Limited post procedure ultrasound of the abdomen. Permanent images taken PACS. CLINICIANS: Maxi Phillip PA-C Preprocedural imaging reviewed with Dr. Plummer MEDICATIONS: -Versed 1.5 mg, Fentanyl 50 mcg, and lidocaine 1% 10 mL SQ -Antibiotics: None -For additional details, please see nursing flowsheet. COMPLICATIONS: None ESTIMATED BLOOD LOSS: < 5 ml CONTRAST: None SPECIMENS: Total of 4 x 20-gauge biopsies of the liver mass. MODERATE SEDATION TIME: 41 min PROCEDURE NOTE: The procedure, risks, benefits, and alternatives were carefully explained to the patient and written informed consent was obtained. The patient was placed supine on the ultrasound table. A timeout was performed. A limited ultrasound of the abdomen was performed to localize the liver lesion and choose appropriate needle entry and trajectory. The patient was prepped and draped in usual sterile fashion. The skin and subcutaneous tissues were anesthetized with lidocaine. Under ultrasound guidance, a trocar was advanced to the lesion. A 20-gauge core biopsy device was inserted through the double wall needle, with the needle tip advanced into the lesion. Position was confirmed with ultrasound evaluation. A total of 4 core biopsies were obtained. 2 Gelfoam torpedoes were inserted through the trocar needle and positioned in the biopsy tract and at the level of the capsule. The needle was then removed. A post procedure ultrasound was then obtained. The patient was stable after the procedure and was transferred to the post anesthesia care unit. The procedure was done under moderate sedation with a dedicated nurse for monitoring of vital signs. US/US biopsy liver Impression: Ultrasound-guided biopsy of liver mass This procedure was performed by Maxi Phillip PA-C and supervised by Dr. Plummer.
[2023-05-29] MEDS: Lidocaine HCl 1 % MPF 5 ML VIAL 10 ML SUBCUT (10:54)
== END 2023-05-29 13:45 | disposition home or self-care (01) ==
LOC: HO.SSS 07:56
PROVIDERS: Physician Assistant Surgical; PCP Nurse Practitioner Family; Visit Provider Internal Medicine Medical Oncology
DX: K76.9 Liver disease, unspecified (principal); K57.30 Diverticulosis of large intestine without perforation or abscess without bleeding; I82.411 Acute embolism and thrombosis of right femoral vein; Z86.711 Personal history of pulmonary embolism; I10 Essential (primary) hypertension; E78.00 Pure hypercholesterolemia, unspecified; Z79.01 Long term (current) use of anticoagulants; Z79.899 Other long term (current) drug therapy; Z87.891 Personal history of nicotine dependence; Z91.040 Latex allergy status; Z88.8 Allergy status to other drugs, medicaments and biological substances
CPT/HCPCS: 47000; 76942; 86850; 86900; 86901; 88307; 88313; 88341; 88342; 99152; 99153; J2250; J2310; J3010

== ENCOUNTER → 2023-05-29 08:40 | Outpatient (BNV) | payer MEDICARE, SELFPAY | PROVIDERS: PCP Nurse Practitioner Family; Visit Provider Radiology Diagnostic Radiology | DX: K76.9 Liver disease, unspecified (principal) | CPT/HCPCS: 47000; 76942; 99152 ==

== ENCOUNTER 2023-06-14 13:11 | Outpatient (AMB) | payer MEDICARE, SELFPAY ==
[2023-06-14 13:20] VITALS: BP 125/62; PULSE 68; BMI 30.2
--- NOTE | 2023-06-14 13:20 | MHC.OFFVIS ---
Intake Vital Signs 06/14/23 13:20 Height 5 ft 6 in Weight 186 lb 15.232 oz BMI 30.2 BP 125/62 Blood Pressure Location Lt brachial Pulse 68 Pulse Source Pulse Oximeter Intake Visit Reasons: 6 month follow up Intake Note: Pt presents to the office today for a 6 month follow up for GERD. Pt states she is undergoing another liver biopsy on Friday 06/16 at [facility]. Pt states she has not had any acid reflux lately but states she is having more lower abdominal pain. Pt denies any N/V/D. Allergies latex [LATEX] Allergy (Intermediate, Verified 06/14/23 13:23) SWELLING hazelnut Allergy (Unknown, Verified 06/14/23 13:23) ANAPHYLAXIS prednisone Adverse Reaction (Unknown, Verified 06/14/23 13:23) Unknown sulfite Adverse Reaction (Unknown, Verified 06/14/23 13:23) Nasal swelling HPI 6 month follow up HPI Details LAST VISIT: IBS (irritable bowel syndrome) GERD (gastroesophageal reflux disease) Plan Continue current diet and regimen. Patient can continue taking omeprazole in the morning. Avoid dietary triggers and late night snacking. Staying upright for minimal 3 hours after meals discussed with patient. Patient was encouraged to drink plenty fluids and try to increase activity to promote better bowel motility. Continue taking senna and MiraLax on as needed basis. I will see patient in 6 months, sooner on as needed basis. Patient is agreeable to this plan and verbalizes understanding of instructions. She was given the opportunity to ask questions and all questions answered. ? TODAY'S VISIT Patient is here today for requested visit. Patient recently was seen in the ER for diarrhea and abdominal discomfort, incidental finding of mass seen in her liver. Biopsy showed carcinoma, however unable to determine if this is metastatic or liver carcinoma. Patient has another biopsy at [facility] this Monday. Patient had CT of abdomen done prior to ED visit in November of 2021 that did not show any lesions on her liver. Patient reports lower abdominal pain occasional bloating. Patient denies any nausea or vomiting. Patient reports that she feels full very quickly. Feel like she only has room for few bites. Patient reports that she feels like she does not empty completely. Patient states that she has urge to go to have a bowel movement, however she could be sitting a while before actually having a bowel movement. Patient states that she only take Senokot on as needed basis. Patient denies any melena, hematochezia, unintentional weight loss or ribbon like stools. Patient reports occasional dyspepsia without dysphagia or odynophagia. Patient states that she is taking omeprazole and feels like it is working. Her symptoms of acid reflux are suppressed. Patient is also avoiding food that could be causing her epigastric discomfort. [facility] Medical History (Updated 06/14/23 @ 19:34 by Sara Shine [facility]) Liver carcinoma History of pulmonary embolus (PE) Arthritis Elevated cholesterol DVT (deep venous thrombosis) HTN (hypertension) Surgical History History of colonoscopy History of hysteroscopy (~2013) Hx of cystoscopy (~2000) Hx of tonsillectomy History of phacoemulsification of cataract with intraocular lens implantation Hx of cholecystectomy History of total right knee replacement (TKR) Family History Father No problems noted. Mother No problems noted. Other No family history of cancer Social History Household Members: Spouse Housing: House Are you a primary day care director to a significant other at home: No Do you presently have visiting nurse or other home services: No Alcohol intake: never Comment: PATIENT INDICATED UNSTEADY ON FEET AND WILL REQUIRE ACCOMPANY HER Patient Tobacco Use Status: Former Tobacco user Years Smoked: over 20 years ago e-Cigarette/Vaping Use: Never Used Second Hand Smoke Exposure: No service: No Current occupational status: retired Sexual orientation: Straight/Heterosexual Gender identity: Female Cognitive needs: No Hearing needs: No Vision needs: No Review of Systems Const Denies weight gain and Denies weight loss ENT Reports no additional complaints, Denies dysphagia and Denies odynophagia Card Reports no additional complaints Resp Reports no additional complaints GI Reports abdominal pain (Lower abdomen), Denies belching, Denies melena, Denies bloating, Denies change in bowel habits, Reports constipation, Denies dysphagia, Denies excessive flatus, Reports early satiety, Denies dyspepsia, Denies heartburn, Denies diarrhea, Denies loose stools, Denies nausea, Denies odynophagia and Denies vomiting Reports no additional complaints Musc Reports no additional complaints Neuro Reports no additional complaints Psych Reports no additional complaints Endo Reports no additional complaints Physical Exam Vital Signs: Last Vital Signs Pulse 68 06/14/23 13:20 BP 125/62 06/14/23 13:20 BMI result Body Mass Index 30.2 Const General: healthy appearing, no acute distress and well developed Nutritional Appearance: well nourished Orientation/consciousness: patient oriented x3 Resp Effort & Inspection: normal respiratory effort, able to speak in complete sentences, no tracheal deviation and symmetric chest movement Auscultation: clear to auscultation bilaterally Cardio Rate: regular rate GI Inspection: Yes normal to inspection and No distended Palpation (GI): Soft to palpation, not firm, nontender and No hepatosplenomegaly present Auscultation: normal bowel sounds General: Yes no CVA tenderness Back/Spine/Pelvis Back: no CVA tenderness Skin General skin exam: elasticity normal, turgor normal and dry skin Neuro General: patient oriented x3 Psych Appearance: grossly normal Mental Status: mental status grossly normal Results Reviewed Results Reviewed: LIVER BIOPSY 05/29/2023 Impression: Ultrasound-guided biopsy of liver mass Diagnosis Liver, core biopsy: Carcinoma (see comment). Comment: The immunostains cannot confirm tumor origin (hepatocellular, neuroendocrine, or other) and repeat sampling is requested for further work-up Assessment & Plan Assessment & Plan (1) Liver lesion, right lobe: Code(s): K76.9 - Liver disease, unspecified (2) Irritable bowel syndrome with mixed bowel habits: Code(s): K58.2 - Mixed irritable bowel syndrome (3) Liver carcinoma: Code(s): C22.0 - Liver cell carcinoma (4) GERD (gastroesophageal reflux disease): Code(s): K21.9 - Gastro-esophageal reflux disease without esophagitis Qualifiers: Esophagitis presence: esophagitis presence not specified Qualified Code(s): K21.9 - Gastro-esophageal reflux disease without esophagitis Plan Patient will continue omeprazole. Patient will try to drink protein shakes. Discussed with patient emptying her bowels better. Currently she is constipated more than has diarrhea. Occasional lower abdominal pain nonradiating. Patient denies any urinary symptoms. Pain could be related to gas trapping pain. She is feeling bloated. Patient will take senna 2 tablets daily. Low FODMAP diet discussed with patient. List of food recommended as well as list of food to avoid given to patient. Patient will start taking probiotic as well as will try increase fiber in her diet. Patient was encouraged to drink plenty fluids. Has appointment at [facility] for mother liver biopsy to confirm diagnosis. PET scan will be arranged by Dr. Li's office. Patient will be seen in the office in 3 weeks, sooner on as needed basis. Patient is agreeable to this plan and verbalizes understanding of instructions. She was given the opportunity to ask questions and all questions answered. Thank you for allowing me to participate in her care Medications: Changed From sennosides (senna) 8.6 mg PO BEDTIME constipation To sennosides (senna) 17.2 mg (2 x 8.6 mg) PO BEDTIME 60 tabs 2RF constipation Coding Level of Care Code Est Pt Level 4 (97627) Diagnoses Liver lesion, right lobe K76.9 Irritable bowel syndrome with mixed bowel habits K58.2 Liver carcinoma C22.0 Gastroesophageal reflux disease, unspecified whether esophagitis present K21.9 Esophagitis presence: esophagitis presence not specified Time Spent (min) 40 Comment 25 minutes spent with patient and additional 15 minutes spent reviewing her records
== END 2023-06-14 14:02 | disposition home or self-care (01) ==
PROVIDERS: PCP Nurse Practitioner Family; Visit Provider Nurse Practitioner Family
DX: K76.9 Liver disease, unspecified (principal); K58.2 Mixed irritable bowel syndrome; C22.0 Liver cell carcinoma; K21.9 Gastro-esophageal reflux disease without esophagitis
CPT/HCPCS: 99214

== ENCOUNTER → 2023-06-14 13:11 | Outpatient (BNVA) | payer MEDICARE, SELFPAY | PROVIDERS: PCP Nurse Practitioner Family; Visit Provider Nurse Practitioner Family | DX: K76.9 Liver disease, unspecified (principal); K58.2 Mixed irritable bowel syndrome; K21.9 Gastro-esophageal reflux disease without esophagitis; C22.0 Liver cell carcinoma | CPT/HCPCS: 99212 ==

== ENCOUNTER 2023-06-27 10:46 | Outpatient (REF) | payer MEDICARE, SELFPAY ==
--- NOTE | ~2023-06-27 | PE_ITS ---
EXAMINATION: Fluorine-18 FDG PET/CT Scan CLINICAL INDICATION: Initial treatment management. Secondary malignant neoplasm of liver. F-18 FDG PET/CT scan is requested to localize primary site of malignancy. PROCEDURE: 60 minutes following the intravenous administration of 14.71 mCi of fluorine 18 FDG, images from the base of the skull to the mid thighs were obtained using a combined PET/CT scanner with CT scan based attenuation correction. No intravenous contrast was administered. Transverse, coronal, sagittal, and volume reconstruction projections were obtained. The patient's blood glucose as determined by a finger stick, was 106 mg/dl immediately prior to injection. The radiotracer was injected intravenously through the left antecubital superficial vein, without any complications. Total CT exam dose-length product 849.42 mGy-cm * These CT images were obtained using dose optimization techniques as appropriate, variously including the following: Automated exposure control * Adjustment of mA and/or kV according to patient size (this includes techniques or standardized protocols for targeted exams where dose is matched to indication/reason for exam; i.e. extremities or head) * Use of iterative reconstruction technique COMPARISON: CT of the abdomen and pelvis done on 05/13/2023 and MRI of the abdomen done with and without contrast on 05/16/2023 and ultrasound-guided biopsy done on 05/29/2023. FINDINGS: SUV max REFERENCE: Blood: 2.6 (177/267). Liver: 3.5 (141/267). HEAD AND NECK: No abnormal radiotracer uptake. Subcentimeter mucous retention cyst and/or polyp involving the anterior floor of the right maxillary sinus (247/267). No large intracranial hemorrhage, acute territorial infarct or significant shift of midline structures. CHEST: Ports and Devices: None Lungs: Mild emphysematous disease and superimposed presumed pleuroparenchymal scar at both lung apices. There is a sub-5 mm noncalcified lung nodule noted at apical segment of the right upper lobe without any tracer avidity (198/67). An additional sub-5 mm noncalcified circumscribed oval-shaped nontracer avid lung nodule is also noted abutting the right major fissure localized to the superior segment of right lower lobe of the lung (192/267). Pleura: No significant pleural effusion. Lymph Nodes: No tracer-avid mediastinal, hilar or internal mammary or axillary lymphadenopathy. Mediastinum: There is no significant pericardial effusion/thickening. Breasts/Chest Wall: No abnormal radiotracer uptake. ABDOMEN/PELVIS: Liver/Biliary System: Concordant with previously documented 7 cm maximum dimension highly suspicious solitary soft tissue mass seen within the segment 5, 6 of right lobe of the liver shows intense heterogeneous ill-defined hypermetabolism with SUV max of 7.3 (125/267). Superior disease extension into segment 4 of the left lobe of the liver is also noted with SUV max of 6.8 (139/267). The gallbladder is surgically absent. Pancreas: Normal.No evidence of pancreatic ductal dilatation. Spleen: No abnormal radiotracer uptake. No evidence of splenomegaly. Adrenal Glands: No abnormal radiotracer uptake. Kidneys: No hydronephrosis, hydroureter or renal calculi bilaterally. Multiple bilateral cortical as well as exophytic simple appearing cysts are noted, all of them appear photopenic. Bowel: Intense focal tracer avidity is noted at the cecum/proximal ascending colon with SUV max of 7.9 (73/267), may represent variable physiologic tracer avidity versus underlying focal colonic lesion, for which direct visualization/colonoscopy is recommended if not recently performed for further clarification. No evidence of any bowel obstruction. Colonic diverticulosis. Lymph Nodes: No tracer avid retroperitoneal, mesenteric or pelvic and/or groin lymphadenopathy. Pelvic Organs: The urinary bladder is underdistended. MUSCULOSKELETAL: Asymmetric focal increased tracer avidity is noted around the tip of the right scapula without any definite CT correlate with SUV max of 2.1 (181/267). Variable heterogeneous tracer avidity within the spine without any discrete focal tracer avidity or underlying suspicious CT correlate. VASCULAR: Calcific atherosclerotic disease of the aorta including carotid and coronary artery calcifications. No evidence of aneurysm. THE SITE(S) OF MOST INTENSE FDG AVIDITY AND SUV MAX: Focal increased tracer avidity in the region of the cecum/ascending colon at right iliac fossa with SUV max of 7.9. The index site of focal liver lesion involving right lobe of the liver extending superiorly to the segment 4 of left lobe of the liver with SUV max of 7.3. PET/PET CT fusion skull to thigh IMPRESSION: 1. The index site of focal liver lesion involving the right lobe of the liver extending superiorly to segment 4 of the left lobe of the liver currently measures approximately 7 cm at its dimension and shows heterogeneous abnormal increased hypermetabolism with an infiltrative morphology and SUV max of 7.9, consistent with clinically known biopsy proved metastatic disease. 2. Focal intense increased tracer avidity is noted in the region of the cecum/ascending colon with SUV max of 7.9, for which direct visualization/colonoscopy is recommended for further clarification, if not recently performed. 3. Solitary subtle asymmetric focal increased tracer avidity near the tip of the right scapula without any underlying definite CT correlate, nonspecific in appearance, may represent posttraumatic versus subtle evolving metastatic disease. 4. Note is also made of 2 discrete sub-5 mm noncalcified, nontracer avid right upper lobar and right lower lobar lung nodules which are too small for accurate characterization. However given the history of biopsy proved metastatic liver disease, likely represent evolving parenchymal metastases, for which dedicated diagnostic CT scan of the chest and/or close interval imaging follow-up as appropriate is recommended. These are too small for image guided percutaneous or bronchoscopic biopsy.
== END 2023-06-27 10:47 | disposition home or self-care (01) ==
LOC: HO.PET 10:46
PROVIDERS: PCP Nurse Practitioner Family; Visit Provider Internal Medicine Medical Oncology
DX: Z13.89 Encounter for screening for other disorder (principal)

== ENCOUNTER 2023-06-27 14:12 | Outpatient (REF) | payer MEDICARE, SELFPAY ==
--- NOTE | ~2023-06-27 | US_ITS ---
EXAMINATION: MM DIAGNOSTIC DIGITAL BREAST TOMOSYNTHESIS, RIGHT US BREAST LIMITED, RIGHT MAMMOGRAPHY: CLINICAL INFORMATION: Callback mammography to evaluate 4 mm oval mass, 8-9 o'clock axis right breast, middle one third seen on screening exam. COMPARISON: Mammography: 05/24/2023, 05/12/2011, 07/23/2009. TECHNIQUE: Digital breast tomosynthesis is performed in the following views: Full-field digital 3-D right ML x2, 3-D right CC spot compression view x2, 3-D right MLO compression view x2. Computer-aided diagnosis was used for this study. This was followed by diagnostic ultrasound. FINDINGS: There are scattered areas of fibroglandular density (ACR BI-RADS breast composition Category b). Diagnostic views confirm the presence of a 4 mm oval mass in the 8:00 to 9:00 axis of the right breast middle one third. This will be evaluated by ultrasound. There are vascular calcifications. There are no additional suspicious masses, grouped calcifications, or areas of architectural distortion within the right breast. The parenchymal pattern is unchanged from prior studies. No skin or axillary abnormalities. ULTRASOUND: CLINICAL INFORMATION: Evaluate 4 mm oval mass in the 8-9 o'clock axis of the right breast, middle one third. COMPARISON: None TECHNIQUE: Targeted sonographic evaluation right breast was performed using a high frequency linear transducer. Right breast was scanned from the 7:00 through 11:00 axes. Selected archived documentation. FINDINGS: RIGHT BREAST: Within the 9:00 axis of the right breast, 8 cm from the nipple, there is a simple cyst measuring 3 x 3 x 3 mm, correlating with the focus of mammographic concern. This finding is benign. No additional findings. US/US breast RT limited mamm only IMPRESSION: There are no findings suspicious for malignancy in the right breast. The small mammographic oval mass in the right breast is consistent with a simple cyst at the 9:00 axis, 8 cm from the nipple. No further follow-up recommended. Recommend the patient resume annual screening mammography. OVERALL ASSESSMENT: Mammography: BI-RADS 2 - Benign Findings Ultrasound: BI-RADS 2 - Benign Findings RECOMMENDATION: 1 year F/U Results were provided to the patient at time of visit by the technologist. This patient's information was entered into a reminder system with a target due date for their next mammogram.
== END 2023-06-27 14:13 | disposition home or self-care (01) ==
LOC: HO.MAMMO 14:12
PROVIDERS: PCP Nurse Practitioner Family; Visit Provider Internal Medicine Medical Oncology
DX: N64.89 Other specified disorders of breast (principal)
CPT/HCPCS: 76642; 77061; 77065

== ENCOUNTER → 2023-06-27 15:00 | Outpatient (BNV) | payer MEDICARE, SELFPAY | PROVIDERS: PCP Nurse Practitioner Family; Visit Provider Radiology Diagnostic Radiology | DX: N63.13 Unspecified lump in the right breast, lower outer quadrant (principal) | CPT/HCPCS: 76642; 77065; G0279 ==

== ENCOUNTER 2023-07-07 14:43 | Outpatient (REF) | payer MEDICARE, SELFPAY ==
--- NOTE | ~2023-07-07 | CT_ITS ---
EXAMINATION: CT CHEST WITHOUT CONTRAST CLINICAL INFORMATION: Pulmonary nodules COMPARISON: PET/CT 06/27/[address] abdomen pelvis 07/10/2023 TECHNIQUE: Multidetector volumetric CT imaging of the chest was done. Axial MIP volume rendering provided. Sagittal and coronal reformatted images were obtained. This CT examination was performed using dose optimization techniques as appropriate, variously including the following: *Automated exposure control *Adjustment of mA and/or kV according to patient size (this includes techniques or standardized protocols for targeted exams where dose is matched to indication/reason for exam; i.e. extremities or head) *Use of iterative reconstruction technique DLP: 163 mGy-cm FINDINGS: Central airways are patent. Lungs are well aerated. Mild emphysematous changes are noted. There is biapical architectural distortion/scarring present. Some mild right middle lobe scarring is also noted. There is no lobar consolidation. No pleural effusion no pneumothorax. 5 mm right upper lobe pulmonary nodule, stable (image [id number], series 5). Stable 5 mm right lower lobe pulmonary nodule (image 228). A few other smaller 1 to 3 mm pulmonary micronodules are also noted. The heart is normal in size. Coronary artery calcifications are present. There is no pericardial effusion. Ascending aorta is mildly dilated measuring 4.3 cm in maximum dimension no gross mediastinal or hilar lymphadenopathy. No pathologically enlarged axillary lymph nodes. Visualized portions of the upper abdomen are grossly unremarkable. Please see CT abdomen pelvis report from 07/10/2023 for additional details of the abdomen and pelvis. Diffuse osteopenia. Moderate degenerative changes of the spine. CT/CT chest wo IV con IMPRESSION: 1. Previously visualized pulmonary nodules are stable. No new suspicious pulmonary nodules visualized. 2. Mild emphysema. 3. Ascending aorta is mildly dilated measuring 4.3 cm in maximum dimension. Fleischner guidelines were followed.
== END 2023-07-07 14:44 | disposition home or self-care (01) ==
LOC: HO.CT 14:43
PROVIDERS: PCP Nurse Practitioner Family; Visit Provider Internal Medicine Medical Oncology
DX: R91.8 Other nonspecific abnormal finding of lung field (principal)
CPT/HCPCS: 71250

== ENCOUNTER 2023-07-10 10:52 | Inpatient (IN) | payer MEDICARE, SELFPAY ==
--- NOTE | ~2023-07-10 | XR_ITS ---
EXAMINATION: CHEST RADIOGRAPH AND KUB CLINICAL INFORMATION: Post colonoscopy complaining of abdominal pain COMPARISON: CT abdomen pelvis 09/09/2023 CT chest 09/06/2023 Chest x-ray 11/02/2015 TECHNIQUE: Single view chest, single view abdomen FINDINGS: Heart size normal. The aorta is ectatic, unchanged from 2016. No infiltrates, effusions or lung masses are seen. Degenerative changes are present in the spine and shoulders. The abdominal bowel gas pattern is unremarkable. There is no evidence of bowel obstruction. Surgical clips are present in the right upper quadrant. Rounded mass in the left midabdomen represents one of the benign hepatic cysts better visualized on prior CT. XR/XR chest 1V IMPRESSION: 1. No acute intrathoracic disease. 2. No evidence of bowel obstruction. 3. Other incidental findings as described above.
--- NOTE | ~2023-07-10 | XR_ITS ---
EXAMINATION: CHEST RADIOGRAPH AND KUB CLINICAL INFORMATION: Post colonoscopy complaining of abdominal pain COMPARISON: CT abdomen pelvis 09/09/2023 CT chest 09/06/2023 Chest x-ray 11/02/2015 TECHNIQUE: Single view chest, single view abdomen FINDINGS: Heart size normal. The aorta is ectatic, unchanged from 2016. No infiltrates, effusions or lung masses are seen. Degenerative changes are present in the spine and shoulders. The abdominal bowel gas pattern is unremarkable. There is no evidence of bowel obstruction. Surgical clips are present in the right upper quadrant. Rounded mass in the left midabdomen represents one of the benign hepatic cysts better visualized on prior CT. XR/XR KUB IMPRESSION: 1. No acute intrathoracic disease. 2. No evidence of bowel obstruction. 3. Other incidental findings as described above.
--- NOTE | ~2023-07-10 | CT_ITS ---
EXAMINATION: CT ABDOMEN AND PELVIS WITH CONTRAST CLINICAL INFORMATION: Abdominal pain with history of liver carcinoma COMPARISON: CT abdomen pelvis 05/13/2023 TECHNIQUE: Multidetector volumetric images were obtained from the superior aspect of the liver through the pubic symphysis following administration 85 mL of Omnipaque 350 intravenous contrast. Sagittal and coronal reformatted images were obtained on the technologist's workstation. Oral contrast: No This CT examination was performed using dose optimization techniques as appropriate, variously including the following: *Automated exposure control *Adjustment of mA and/or kV according to patient size (this includes techniques or standardized protocols for targeted exams where dose is matched to indication/reason for exam; i.e. extremities or head) *Use of iterative reconstruction technique DLP: 563 mGy-cm FINDINGS: LUNG BASES: The visualized lung bases are unremarkable. LIVER, GALLBLADDER, AND BILIARY TREE: There are 2 adjacent masses in the right lobe of the liver which has significantly increased in size since the prior study. The now measure 9.6 x 6.0 x 8.9 cm compared with 7.8 x 4.4 x 6.0 cm previously (2:24 compare prior 3:27 as well as 6:33 compare prior 5:32). There is a new small subcapsular mass in the right lobe of the liver just adjacent to the falciform ligament measuring 1.7 x 0.7 x 1.8 cm (2:21 and 6:17). The patient is status post cholecystectomy with moderately prominent intrahepatic bile ducts, increased in size since the prior study. For example, a right main hepatic duct measures 0.9 cm whereas previously this measured 0.4 cm (2:15 compare prior 3:20).. PANCREAS: Unremarkable. SPLEEN: Unremarkable. ADRENAL GLANDS: Unremarkable. KIDNEYS AND URETERS: The kidneys are normal in size, shape, and attenuation. Multiple benign Bosniak class I and Bosniak class II bilateral renal cysts are noted, the largest measuring about 10.0 cm which require no additional imaging or follow-up. The Bosniak class II cyst is at the lower pole the right kidney and contains a few septations with thin fine calcium. No suspicious solid renal masses are seen. No hydronephrosis, hydroureter, or calculi seen. No perinephric stranding. BLADDER: Unremarkable. GASTROINTESTINAL TRACT: There is colonic diverticulosis most abundant in the sigmoid but with some scattered diverticula elsewhere. No evidence of diverticulitis. The small and large bowel are otherwise unremarkable. The appendix is unremarkable. ABDOMINAL WALL: No significant hernia is appreciated. LYMPH NODES: No retroperitoneal lymphadenopathy. VASCULAR: Calcific atherosclerotic changes are present in the aorta and iliofemoral vessels. There is mild dilatation of the infrarenal aorta with maximum dimension of 2.6 cm. Ultrasound surveillance is recommended every 5 years. PELVIC VISCERA: The retroverted uterus and adnexa are unremarkable. OSSEOUS STRUCTURES: Mild degenerative changes are present in the spine. Severe degenerative changes seen in the right hip. CT/CT abdomen pelvis w IV con IMPRESSION: 1. Enlarging hepatic masses with new small subcapsular mass. This could certainly be causing patient's worsening pain. 2. Increasing intrahepatic biliary dilatation. 3. Other incidental findings as described above including colonic diverticulosis, benign Bosniak class I and Bosniak class II renal cysts which need no additional imaging or follow-up, mild dilatation of the infrarenal aorta (needs ultrasound follow-up every 5 years) and severe degenerative changes in the right hip. Fleischner guidelines were followed.
[2023-07-10 11:35] VITALS: BP 113/70; PULSE 85; RESP 16; TEMP 36.4; O2SAT 96; BMI 27.8
--- NOTE | 2023-07-10 11:35 | ED_ITS ---
HPI - General Adult General Chief complaint: Abdominal Pain Stated complaint: nausea sent in by pcp Time Seen by Provider: 07/10/23 13:36 Source: patient and RN notes reviewed Mode of arrival: ambulatory Limitations: no limitations History of Present Illness HPI narrative: This is a 83-year-old female, with a history of liver carcinoma, pulmonary embolism, DVT, hypertension, and arthritis, who presents emergency department, accompanied by her and [id number], with complaints of nausea, generalized abdominal pain, decreased p.o. intake. Patient reports that over the last several weeks she has had decreased appetite, intermittent nausea, intermittent abdominal pain. She is currently being followed by Dr. Li for liver cancer. She is scheduled to have a colonoscopy tomorrow to see the extent liver metastasis. She was told that there are some lesions on her colon as well as in her lungs. She has not currently undergoing chemotherapy or radiation. She states that she is lost approximately 20 lb in the last month as she has no appetite for any food. She denies any fevers, headaches, dizziness, blurred vision, difficulty swallowing, chest pain, shortness of breath, abdominal pain, vomiting or diarrhea. No urinary symptoms. No other complaints or concerns at this time. MD complaint: Decreased appetite, nausea, abdominal pain Onset (ago): week(s) Radiation: non-radiation Severity: moderate Quality: aching Pain Consistency: constant Relieving factors: none Exacerbating factors: none Associated symptoms: denies other symptoms Treatments prior to arrival: none Related Data Home Medications Medication Instructions Recorded Confirmed calcium citrate 500 mg (2,376 mg) 500 mg PO DAILY PRN gi upset 05/18/23 07/10/23 effervescent tablet atorvastatin 10 mg tablet 10 mg PO BEDTIME 07/10/23 07/10/23 dicyclomine 10 mg capsule 20 mg PO BID 07/10/23 07/10/23 sennosides 8.6 mg tablet (senna) 8.6 mg PO BEDTIME PRN constipation 07/10/23 07/10/23 Previous Rx's Medication Instructions Recorded commode #1 ea 07/31/20 irbesartan 75 mg tablet 75 mg PO DAILY 90 days #90 tabs 10/10/22 cholecalciferol (vitamin D3) 50 50 mcg PO DAILY #90 caps 12/22/22 mcg (2,000 unit) capsule apixaban 5 mg tablet (Eliquis) 5 mg PO BID 90 days #180 tabs 04/04/23 amlodipine 2.5 mg tablet 2.5 mg PO DAILY #90 tabs 04/19/23 omeprazole 40 mg capsule,delayed 40 mg PO DAILY #90 caps 06/23/23 release bisacodyl 5 mg tablet,delayed 20 mg (4 x 5 mg) PO ONCE 1 day #4 07/06/23 release (Dulcolax (bisacodyl)) tabs polyethylene glycol 3350 17 238 g PO ONCE 1 day #238 grams 07/06/23 gram/dose oral powder (Miralax) Allergies Allergy/AdvReac Type Severity Reaction Status Date / Time latex [LATEX] Allergy Intermediate SWELLING Verified 07/10/23 11:35 hazelnut Allergy Unknown ANAPHYLAXIS Verified 07/10/23 11:35 prednisone AdvReac Unknown Unknown Verified 07/10/23 11:35 sulfite AdvReac Unknown Nasal Verified 07/10/23 11:35 swelling Review of Systems 2 Review of Systems: Yes all other systems are reviewed and are negative Constitutional: Constitutional: Reports as per [facility] Past Medical History Attestation statement: The following information was validated with the patient. Medical History (Updated 07/11/23 @ 13:51 by Tavia Dinh MD) Liver carcinoma History of pulmonary embolus (PE) Arthritis Elevated cholesterol DVT (deep venous thrombosis) HTN (hypertension) Surgical History History of colonoscopy History of hysteroscopy (~2013) Hx of cystoscopy (~2000) Hx of tonsillectomy History of phacoemulsification of cataract with intraocular lens implantation Hx of cholecystectomy History of total right knee replacement (TKR) Family History Family History Father No problems noted. Mother No problems noted. Other No family history of cancer Social History Social History Household Members: Spouse Housing: Condominium Are you a primary nursing care partner to a significant other at home: No Do you presently have visiting nurse or other home services: No Alcohol intake: never Comment: PATIENT INDICATED UNSTEADY ON FEET AND WILL REQUIRE ACCOMPANY HER Patient Tobacco Use Status: Former Tobacco user Quit Date: 2003 Years Smoked: over 20 years ago e-Cigarette/Vaping Use: Never Used Second Hand Smoke Exposure: No service: No Current occupational status: retired Sexual orientation: Straight/Heterosexual Gender identity: Female Cognitive needs: No Hearing needs: No Vision needs: No Physical Exam ED Vital Signs: Vital Signs - 24 hr 07/10/23 11:35 07/10/23 13:42 07/10/23 15:15 Temperature 97.5 F 97.5 F 97.5 F Pulse Rate 85 66 65 Respiratory Rate 16 16 16 Blood Pressure 113/70 134/85 157/85 H Pulse Oximetry 96 97 94 Oxygen Delivery Method Room Air Room Air Room Air BMI result Body Mass Index 27.8 Const General: cooperative, comfortable and no acute distress Orientation/consciousness: patient oriented x3 Limitations: no limitations HENMT Head: Yes normal to inspection, Yes normocephalic and Yes atraumatic Ears: hearing grossly normal bilaterally General nose exam: Normal external nose present Face and sinus: Yes normal facial exam Mouth: Normal oral and palatal mucosa present, oropharynx normal and moist mucous membranes Throat: Yes posterior oropharynx normal Eyes General: appearance normal, both eyes and all related structures Eyelids: Yes eyelids normal Conjunctivae: conjunctivae normal Sclerae: sclerae normal Pupils: Equal, round and reactive pupils present EOM: EOMs intact bilaterally Neck Neck: Yes normal visual inspection, Yes full ROM and Yes no lymphadenopathy Lymphatic: no lymphadenopathy noted Chest Chest palpation & inspection: normal inspection of the chest Resp Effort & Inspection: normal respiratory effort and able to speak in complete sentences Auscultation: clear to auscultation bilaterally, no crackles, no rales, no rhonchi and no wheezes Cardio Rate: regular rate Rhythm: regular rhythm Heart sounds: S1 normal heart sound present and S2 normal heart sound present GI Other: diffuse suprapubic ttp to the abdomen, no rebound or guarding. normal active bowel sounds Inspection: Yes normal to inspection Skin General skin exam: no rashes or lesions noted Trauma: no lacerations or abrasions Wounds: no wounds Neuro General: patient oriented x3 and moves all extremities Cranial nerves: Yes Equal, round and reactive pupils present Extrem General: Yes normal to inspection Right upper extremity: normal to inspection Left upper extremity: normal to inspection Right lower extremity: normal to inspection Left lower extremity: normal to inspection Course Course Course Narrative: RME performed by Jayde Kaufman PA-C. Patient is an 83 year old assigned female at presenting to the emergency department with abdominal pain and nausea. Patient is established with Dr. Li. Detailed physical exam and review of systems are deferred to the layer out plate glass. Labs and swabs ordered. Patient placed back in the waiting room pending room availability and results. Reevaluation(s) Reevaluation #1: CT abdomen and pelvis returns, revealing enlarging hepatic masses with new small some subcapsular mass. This could be causing patient's worsening pain. She also has increasing intrahepatic biliary dilatation. I spoke to Dr. Li who is aware of this case and has been in contact with Dr. Hensley. spoke to Dr. Dinh who is in agreement with admission and may need fluids as she may not be able to tolerate colonoscopy prep if she is having poor p.o. intake. Dr. Dinh will be in discussion with Dr. Li to see if liver lesions need to be re sampled. Patient is in agreement with hospitalization. Patient remained stable, Transfer of care initiated to the hospital service. Time: 16:08 Medications Administered Generic Name Dose Route Start Last Admin Trade Name Freq PRN Reason Stop Dose Admin Amlodipine Besylate 2.5 mg 07/11/23 14:45 07/13/23 09:23 Amlodipine Besylate 2.5 Mg Tablet PO 2.5 mg DAILY ADELAIDA Administration Protocol Dicyclomine HCl 20 mg 07/11/23 21:00 07/13/23 09:22 Dicyclomine Hcl 10 Mg Capsule PO 20 mg BID ADELAIDA Administration Omeprazole 40 mg 07/11/23 14:45 07/13/23 05:01 Omeprazole 40 Mg Capsule. PO 40 mg DAILY@0630 ADELAIDA Administration Ondansetron HCl 4 mg 07/10/23 18:16 07/12/23 15:57 Ondansetron Hcl 4 Mg/2 Ml Vial IVPUSH 4 mg Q8H PRN Administration Nausea and Vomiting Oxycodone HCl 5 mg 07/10/23 18:16 07/12/23 06:57 Oxycodone Hcl Immed Release 5 Mg Tablet PO 5 mg Q4H PRN Administration Pain, Moderate(Pain Scale 4-6) Simethicone 20 mg 07/12/23 16:19 07/12/23 16:41 Simethicone Infant Drops 40 Mg/0.6 Ml 15 Ml Drops.Susp PO 20 mg ONCE PRN Administration Consult order Sodium Chloride 3 ml 07/11/23 00:00 07/13/23 09:22 0.9 % Sodium Chloride Flush 3 Ml Syringe IVFLUSH Not Given QSHIFT ADELAIDA Valsartan 40 mg 07/11/23 14:45 07/13/23 09:23 Valsartan 40 Mg Tablet PO 40 mg DAILY ADELAIDA Administration Discontinued Medications Generic Name Dose Route Start Last Admin Trade Name Wallace PRN Reason Stop Dose Admin Haloperidol Lactate 1 mg 07/12/23 16:26 07/12/23 16:38 Haloperidol Lactate 5 Mg/Ml Vial IVPUSH 07/12/23 16:27 1 mg ONCE ONE Administration Sodium Chloride 500 mls @ 500 mls/hr 07/10/23 15:30 07/10/23 17:01 Ns IV 07/10/23 16:29 Infused .Q1H ADELAIDA Infusion Iohexol 100 ml 07/10/23 14:13 07/10/23 14:14 Iohexol 350 Mg/Ml 100 Ml Infus..Btl IV 07/10/23 14:14 85 ml ONCE ONE Administration Polyethylene Glycol/Electrolytes 4,000 ml 07/11/23 15:00 07/11/23 16:27 Peg 3350/Na Sulf,Bicarb,Cl/Kcl 4,000 Ml Soln.Recon PO 07/11/23 15:01 4,000 ml ONCE ONE Administration Simethicone 20 mg 07/12/23 16:14 07/12/23 17:08 Simethicone Drops 40 Mg/0.6 Ml 15 Ml Drops.Susp PO 07/12/23 16:15 Not Given ONCE ONE Medical Decision Making Medical Decision Making MDM Narrative: This is a 83-year-old female, with a history of liver carcinoma, who presents emergency department with complaints of decreased appetite opaque, does show the last several weeks. Patient states that her symptoms are intermittent. She states that she has lost approximately 20 lb in the last month. On arrival, patient nontoxic appearing, vital signs within normal limits. Patient has diffuse tenderness throughout her lower abdomen with no point tenderness, no rebound or guarding. Lungs clear to auscultation bilaterally. Differential diagnoses include ACS-unlikely, bowel obstruction, diverticulosis, diverticulitis, failure to thrive, liver carcinoma with metastasis Plan: Labs, EKG, viral swabs, CT abdomen and pelvis with IV contrast Differential Diagnosis Differential Diagnoses: The differential diagnosis associated with the presentation includes See above Admission/Observation Consideration of admission/observation: Escalation of care including admission/observation considered Lab Data MDM Lab Attestation statement: I reviewed the patient's lab results. No leukocytosis,H&H 17.4/51.8, creatinine 1.2, which is around her baseline. Hyper bili Dawn anemia at 1.1, elevated liver transaminases at 46 and 42. Elevated alk-phos at 335. 07/13/23 05:40 07/13/23 05:40 Labs: Lab Results 07/10/23 07/10/23 Range/Units 12:01 15:45 WBC 7.8 (4.8-10.8) X10*3/uL RBC 5.42 (4.20-5.50) X10*6/uL Hgb 17.4 H (12.0-16.0) g/dl Hct 51.8 H (37.0-47.0) % MCV 95.6 (80.0-98.0) fL MCH 32.1 (27.0-33.0) pg MCHC 33.6 (31.0-35.0) g/dl RDW 14.9 (11.0-16.0) % Plt Count 141 L (160-400) X10*3/uL MPV 11.2 (9.4-12.3) fL Immature Gran % (Auto) 0.4 (0.0-0.4) % Neut % (Auto) 77.8 H (45-73) % Lymph % (Auto) 14.3 L (20-40) % [place] % (Auto) 6.8 (2-11) % Eos % (Auto) 0.3 (0-4) % Baso % (Auto) 0.4 (0-2) % Lymph # (Auto) 1.1 L (1.2-4.9) X10*3/uL [place] # (Auto) 0.5 (0.1-1.2) X10*3/uL Eos # (Auto) 0.0 (0.0-0.4) X10*3/uL Baso # (Auto) 0.0 (0.0-0.2) X10*3/uL Abs Immat Gran (auto) 0.03 (0.00-0.03) X10*3/uL Absolute Neuts (auto) 6.1 (2.0-8.3) x10*3/uL Absolute Nucleated RBC 0.000 (0.0-0.012) X10*3/uL Nucleated RBC % (auto) 0.0 (0.0-0.2) /100WBC Sodium 140 (135-145) mmol/L Potassium 4.4 (3.3-5.1) mmol/L Chloride 100 (96-108) mmol/L Carbon Dioxide 27 (22-29) mmol/L Anion Gap 17 (12-20) BUN 24 H (9-16) mg/dL Creatinine 1.20 (0.5-1.4) mg/dL Estim Creat Clear Calc 40.8 Estimated GFR 43 Random Glucose 106 (60-115) mg/dL Calcium 10.4 H D (8.4-10.2) mg/dL Magnesium 1.7 (1.6-2.6) mg/dL Total Bilirubin 1.1 H (0.0-1.0) mg/dL AST 46 H (5-31) U/L ALT 42 H (0-31) U/L Alkaline Phosphatase 335 H (39-117) U/L Troponin I High Sens 12.3 (<3.5-17.0) ng/L Total Protein 7.0 (6.5-8.0) g/dL Albumin 4.1 (3.5-5.0) g/dL Urine Color Yellow Urine Appearance Clear Urine pH 6.5 (5.0-9.0) Ur Specific [place] >= 1.030 H (1.005-1.025) Urine Protein Negative (Neg-Trace) mg/dL Urine Glucose (UA) Negative (Negative) mg/dL Urine Ketones 15 (Negative) mg/dL Urine Blood Trace H (Negative) Urine Nitrite Negative (Negative) Ur Leukocyte Esterase Negative (Negative) Urine RBC 3-5 H (0-2) /HPF Urine WBC 0-5 (0-5) /HPF Ur Squamous Epith Cells 3-5 (0-2) /HPF Urine Bacteria None Seen (None Seen) Hyaline Casts 0-2 (0-2) /LPF Influenza Type A (PCR) NEGATIVE (Negative) Influenza Type B (PCR) NEGATIVE (Negative) RSV RNA Qual (PCR) NEGATIVE (Negative) SARS-CoV-2 RNA (RT-PCR) NEGATIVE (Negative) Independent Interpretation I performed an independent interpretation of an: EKG Radiology Impression Discussion of test interpretation with radiology: I have reviewed the radiologist's reading. Radiologist Impression: CT/CT abdomen pelvis w IV con IMPRESSION: 1. Enlarging hepatic masses with new small subcapsular mass. This could certainly be causing patient's worsening pain. 2. Increasing intrahepatic biliary dilatation. 3. Other incidental findings as described above including colonic diverticulosis, benign Bosniak class I and Bosniak class II renal cysts which need no additional imaging or follow-up, mild dilatation of the infrarenal aorta (needs ultrasound follow-up every 5 years) and severe degenerative changes in the right hip. Fleischner guidelines were followed. External Record Review External record reviewed: Inpatient record, Office record, Outpatient record, Prior outpatient labs, Prior outpatient radiology, Primary care record and Outside ED record Discharge Plan Discharge Clinical Impression: Liver mass, Weakness, Adult failure to thrive Patient Disposition: Admitted As Inpatient Interventions: Admission Worksheet (ED) Last Done: 07/11/23 19:48 Discharge Date/Time: 07/11/23 20:30
--- NOTE | 2023-07-10 11:37 | ECG_ITS ---
Test Reason : ABD PAIN Blood Pressure : / mmHG Vent. Rate : 079 BPM Atrial Rate : 079 BPM P-R Int : 184 ms QRS Dur : 074 ms QT Int : 352 ms P-R-T Axes : 098 -26 064 degrees QTc Int : 403 ms Normal sinus rhythm Normal ECG When compared with ECG of 13-MAY-2023 08:40, Premature supraventricular complexes are no longer Present Criteria for Septal infarct are no longer Present Referred By: Jayde Kaufman Electronically Signed By:KASANDRA OLIVER
[2023-07-10 12:07] LABS: MANUAL DIFF FLAG NO
[2023-07-10 12:09] LABS: Basophils Percent Auto 0.4 % (0-2); Eosinophils Percent Auto 0.3 % (0-4); Hematocrit 51.8 % (37.0-47.0); Hemoglobin 17.4 g/dl (12.0-16.0); Imm Gran Abs Auto 0.03 X10*3/uL (0.00-0.03); Imm Gran Pct Auto 0.4 % (0.0-0.4); Lymphocytes Absolute Auto 1.1 X10*3/uL (1.2-4.9); Lymphocytes Percent Auto 14.3 % (20-40); Mean Corpuscular HGB Conc 33.6 g/dl (31.0-35.0); Mean Corpuscular Hemoglobin 32.1 pg (27.0-33.0); Mean Corpuscular Volume 95.6 fL (80.0-98.0); Mean Platelet Volume 11.2 fL (9.4-12.3); Monocytes Absolute Auto 0.5 X10*3/uL (0.1-1.2); Monocytes Percent Auto 6.8 % (2-11); Neutrophils Absolute Auto 6.1 x10*3/uL (2.0-8.3); Neutrophils Percent Auto 77.8 % (45-73); Platelet Count 141 X10*3/uL (160-400); Red Blood Count 5.42 X10*6/uL (4.20-5.50); Red Cell Distribution Width 14.9 % (11.0-16.0); White Blood Count 7.8 X10*3/uL (4.8-10.8)
[2023-07-10 12:22] LABS: Alanine Aminotransferase 42 U/L (0-31); Albumin Level 4.1 g/dL (3.5-5.0); Alkaline Phosphatase 335 U/L (39-117); Anion Gap 17 (12-20); Aspartate Amino Transferase 46 U/L (5-31); Bilirubin Total 1.1 mg/dL (0.0-1.0); Blood Urea Nitrogen 24 mg/dL (9-16); Calcium 10.4 mg/dL (8.4-10.2); Carbon Dioxide 27 mmol/L (22-29); Chloride 100 mmol/L (96-108); Creatinine Clr Calc Pharmacy 40.8; Estimated Glomerular Filt Rate 43; Glucose Random 106 mg/dL (60-115); Magnesium 1.7 mg/dL (1.6-2.6); Potassium 4.4 mmol/L (3.3-5.1); Sodium 140 mmol/L (135-145)
[2023-07-10 12:29] LABS: Troponin-I High Sensitivity 12.3 ng/L (<3.5-17.0)
[2023-07-10 12:53] LABS: Influenza A PCR NEGATIVE (Negative); Influenza B PCR NEGATIVE (Negative); Resp Syncy Virus RNA Qual PCR NEGATIVE (Negative); SARS COV2 PCR INHOUSE NEGATIVE (Negative)
[2023-07-10 13:42] VITALS: BP 134/85; PULSE 66; RESP 16; TEMP 36.4; O2SAT 97
--- NOTE | 2023-07-10 13:44 | PC.NURSE ---
Pt coming from home via family, pt has had recent dx this week of liver cancer with questions of colon involvement, no chemo or radiation yet. Family reports pt has been weak, lost approx 25 pounds in a month and has had abd pain and nausea. Pt is coming in today for lower abd pain, describes as pressure, non-radiating, 5/10. Pt reports nausea with no vomiting and poor PO intake, some constipation as well. Pt is alert and oriented, breathing even and unlabored, skin dry. VSS. ABD soft, non-distended. Pt denies any CP, SOB, fevers, cough, or difficulty urinating.
[2023-07-10] MEDS: iohexoL 350 MG/ML 100 ML INFUS..BTL IV (14:14)
[2023-07-10 15:15] VITALS: BP 157/85; PULSE 65; RESP 16; TEMP 36.4; O2SAT 94
[2023-07-10] MEDS: 0.9 % Sodium Chloride 500 ML IV (15:42)
[2023-07-10 15:53] LABS: Appearance Urine Clear; Color Urine Yellow; Glucose Urine UA Negative (Negative); Leukocyte Esterase Urine Negative (Negative); Nitrite Urine Negative (Negative); PH 6.5 (5.0-9.0); Specific Gravity - Urine >= 1.030 (1.005-1.025); UMIC TRIGGER UACC YES; Urine Blood Trace (Negative); Urine Ketones 15 mg/dL (Negative); Urine Protein Negative (Neg-Trace)
[2023-07-10 15:55] LABS: Bacteria Urine None Seen (None Seen); Hyaline Casts Urine 0-2 /LPF (0-2); WBC Urine 0-5 /HPF (0-5)
[2023-07-10 18:25] VITALS: BP 162/81; PULSE 66; RESP 16; TEMP 36.6; O2SAT 95
--- NOTE | 2023-07-10 18:31 | PM.IMHP ---
History of Present Illness Date of Service: 07/10/23 Chief Complaint: Abdominal pain 83-year-old female with new diagnosis of likely liver mass question metastasis versus HCC scheduled for outpatient colonoscopy tomorrow. States she did not feel she could complete the prep secondary to generalized malaise and lower abdominal discomfort with background nausea. She has been off her Eliquis times 48 hours presumably for colonoscopy. States she called Dr. Reed office and they instructed her to come to the emergency room. CT scan in ER demonstrated enlarging hepatic mass with new small subcapsular mass. Increasing biliary dilatation. Currently her pain is managed; she will be admitted for ongoing pain control and further workup of this hepatic mass Review of Systems Review of Systems: Denies chest pain Denies shortness of breath Admits nausea; denies vomiting diarrhea Denies fever chills [facility] Medical History (Updated 07/10/23 @ 18:39 by Edgar Saavedra DO) Liver carcinoma History of pulmonary embolus (PE) Arthritis Elevated cholesterol DVT (deep venous thrombosis) HTN (hypertension) Family History Father No problems noted. Mother No problems noted. Other No family history of cancer Surgical History History of colonoscopy History of hysteroscopy (~2013) Hx of cystoscopy (~2000) Hx of tonsillectomy History of phacoemulsification of cataract with intraocular lens implantation Hx of cholecystectomy History of total right knee replacement (TKR) Social History Household Members: Spouse Housing: House Are you a primary medicare insurance specialist to a significant other at home: No Do you presently have visiting nurse or other home services: No Alcohol intake: never Comment: PATIENT INDICATED UNSTEADY ON FEET AND WILL REQUIRE ACCOMPANY HER Patient Tobacco Use Status: Former Tobacco user Years Smoked: over 20 years ago Smoked in Last 30 Days: No e-Cigarette/Vaping Use: Never Used Second Hand Smoke Exposure: No Use of substances other than those prescribed or required for medical reasons: No Advance Directives: No service: No Current occupational status: retired Sexual orientation: Straight/Heterosexual Gender identity: Female Cognitive needs: No Hearing needs: No Vision needs: No Meds Allergies Allergy/AdvReac Type Severity Reaction Status Date / Time latex [LATEX] Allergy Intermediate SWELLING Verified 07/10/23 11:35 hazelnut Allergy Unknown ANAPHYLAXIS Verified 07/10/23 11:35 prednisone AdvReac Unknown Unknown Verified 07/10/23 11:35 sulfite AdvReac Unknown Nasal Verified 07/10/23 11:35 swelling Active Medications: Current Medications Acetaminophen (Acetaminophen 325 Mg Tablet) 650 mg PO Q6H PRN PRN Reason: Pain, Mild (Pain Scale 1-3) Morphine Sulfate (Morphine Sulfate 4 Mg/Ml Cartridge) 4 mg IVPUSH Q4H PRN; Protocol PRN Reason: Pain, Severe (Pain Scale 7-10) Ondansetron HCl (Ondansetron Hcl 4 Mg/2 Ml Vial) 4 mg IVPUSH Q8H PRN PRN Reason: Nausea and Vomiting Oxycodone HCl (Oxycodone Hcl Immed Release 5 Mg Tablet) 5 mg PO Q4H PRN PRN Reason: Pain, Moderate(Pain Scale 4-6) Sodium Chloride (0.9 % Sodium Chloride Flush 3 Ml Syringe) 3 ml IVFLUSH [facility] Home Medications Medication Instructions Recorded Confirmed Last Taken Type acetaminophen 500 mg tablet (Pain 1,000 mg PO Q6H PRN Pain 01/23/20 06/23/23 Unknown History Relief (acetaminophen)) calcium citrate 500 mg (2,376 mg) 500 mg PO BID 05/18/23 06/23/23 05/29/23 History effervescent tablet Physical Exam Vital Signs and Narrative: Vital Signs: Last Vital Signs Temp 97.8 F 07/10/23 18:25 Pulse 66 07/10/23 18:25 Resp 16 07/10/23 18:25 BP 162/81 H 07/10/23 18:25 Pulse Ox 95 07/10/23 18:25 O2 Del Method Room Air 07/10/23 18:25 BMI result Body Mass Index 27.8 Const: Other: Awake alert resting comfortably in bed no acute distress Resp: Other: Clear to auscultation bilaterally no rales rhonchi or wheezes Cardio: Other: No S4; positive S1-S2; no S3 murmurs rubs or gallops GI: Other: Soft minimal tenderness across upper abdomen without rebound. Bowel sounds x4 quadrants Neuro: Other: Cranial nerves 2-12 grossly intact as tested. Motor is 5/5 as tested in bed. Sensation is intact. Cognition appropriate Extrem: Other: No edema bilaterally Results Labs 07/10/23 12:01 07/10/23 12:01 Labs: Laboratory Results - last 24 hr 07/10/23 07/10/23 12:01 15:45 MCV 95.6 MCH 32.1 MCHC 33.6 RDW 14.9 Plt Count 141 L MPV 11.2 Immature Gran % (Auto) 0.4 Neut % (Auto) 77.8 H Lymph % (Auto) 14.3 L [place] % (Auto) 6.8 Eos % (Auto) 0.3 Baso % (Auto) 0.4 Lymph # (Auto) 1.1 L [place] # (Auto) 0.5 Eos # (Auto) 0.0 Baso # (Auto) 0.0 Abs Immat Gran (auto) 0.03 Absolute Neuts (auto) 6.1 Absolute Nucleated RBC 0.000 Nucleated RBC % (auto) 0.0 Anion Gap 17 Estim Creat Clear Calc 40.8 Estimated GFR 43 Random Glucose 106 Calcium 10.4 H D Magnesium 1.7 Total Bilirubin 1.1 H AST 46 H ALT 42 H Alkaline Phosphatase 335 H Troponin I High Sens 12.3 Total Protein 7.0 Albumin 4.1 Urine Color Yellow Urine Appearance Clear Urine pH 6.5 Ur Specific [place] >= 1.030 H Urine Protein Negative Urine Glucose (UA) Negative Urine Ketones 15 Urine Blood Trace H Urine Nitrite Negative Ur Leukocyte Esterase Negative Urine RBC 3-5 H Urine WBC 0-5 Ur Squamous Epith Cells 3-5 Urine Bacteria None Seen Hyaline Casts 0-2 Influenza Type A (PCR) NEGATIVE Influenza Type B (PCR) NEGATIVE RSV RNA Qual (PCR) NEGATIVE SARS-CoV-2 RNA (RT-PCR) NEGATIVE Imaging Radiologist's Impressions: Impressions Abdomen/Pelvis CT 07/10/23 14:22 IMPRESSION: 1. Enlarging hepatic masses with new small subcapsular mass. This could certainly be causing patient's worsening pain. 2. Increasing intrahepatic biliary dilatation. 3. Other incidental findings as described above including colonic diverticulosis, benign Bosniak class I and Bosniak class II renal cysts which need no additional imaging or follow-up, mild dilatation of the infrarenal aorta (needs ultrasound follow-up every 5 years) and severe degenerative changes in the right hip. Fleischner guidelines were followed. Assessment and Plan (1) Liver carcinoma: Status: Acute (2) History of pulmonary embolus (PE): Status: Acute (3) HTN (hypertension): Qualifiers: Hypertension type: primary hypertension Qualified Code(s): I10 - Essential (primary) hypertension Status: Acute Plan 83-year-old female with history of pulmonary embolus/recurrent DVTs on Eliquis presents with abdominal pain nausea without vomiting. Recently diagnosed with liver carcinoma; scheduled for outpatient colonoscopy however unable to complete prep. Has been off Eliquis times 48 hours. Discussed with GI and inability to complete prep and was suggested she come to ER for evaluation. CT demonstrates worsening liver mass. 1. Liver carcinoma Complete pathology pending as per Oncology note. -admit med surge; IV volume repletion and consult to Oncology and GI -continue to hold Eliquis pending future procedures -morphine/oxycodone as needed for pain 2. History of pulmonary embolus/recurrent DVTs -Eliquis held 48 hours; will continue to hold pending input from GI oncology -restart when appropriate 3. Hypertension -acceptable control on current therapies -will adjust as indicated Full code Pneumatics Will require at least 2 midnights going forward for workup of worsening abdominal pain and decreased p.o. intake secondary to nausea likely consistent with increased tumor burden. She will also requires specialty consultation with Gastroenterology and Oncology. This can not be achieved a lesser acute setting Quality Stroke Does the patient have a stroke diagnosis?: No VTE Prior VTE?: No VTE Risk Level:: Medical - moderate - high VTE Device Contraindication: N/A - Device Ordered VTE Drug Contraindication: Treatment Not Indicated
[2023-07-10 19:08] VITALS: BP 162/81; PULSE 63; RESP 17; TEMP 36.5; O2SAT 97
--- NOTE | 2023-07-10 20:11 | PHA.MEDREC ---
Pharmacy Consult ? Medication Reconciliation Pharmacy has completed the medication reconciliation. Confirmed medications with patient (brought list from home) and through claim history.
--- NOTE | 2023-07-10 20:43 | P.CNHO_ITS ---
Subjective - Subjective Chief complaint: Consult for: HCC. ?Abnormal PET, Lighted up in the colon. Patient: known to practice within the last 3 years Consult date: 07/10/23 Requesting Physician: Keri. [facility] Summary: DIAGNOSIS: HCC. Colonic Lesion. HPI - Consult Narrative Reason for consult: Consult for: HCC. Narrative: Colette Aguiar is a 83 year old Lady, with recent diagnosis of HCC, who was scheduled for a colonoscopy on 07/10. Presented today with abdominal pain and nausea, loss of apetite, failure to thrive and weight loss. She tells me in the morning she noted pain in her lower abdomen/pelvic area. It went up to 7 or 8 on 1-10 scale. Later it felt more like tenderness there. This was accompanied by nausea. She has had some retching and intermittent vomiting over the past few days. Vomitus is clear and tenacious. She has no appetite. When she looks at food she is aversed. She is constipated. Goes every other day. Denies any gross blood in the stools. LFTs: 1.1/335/46/42. CAT SCAN: Enlarging hepatic masses, with new subcapsular mass, intra hepatic biliary dilatation. Concern would be a subcapsular bleed. HPI: She was seen in the ED on 05/17/2023. Narrative: 83-year-old female with history and clinical presentation, DDX:Gastroenteritis, food poisoning, diverticulitis, very low clinical suspicion for appendicitis/SBO/UTI or renal colic. Patient has had no further diarrheal episodes. I reviewed all investigations and hematologic indices are negative for leukocytosis although there is a mild left shift, there is no anemia any chronically stable thrombocytopenia. Coagulation studies are reflective of chronic use of Eliquis. Chemistry indices do not demonstrate an NOLBERTO or electrolyte/liver enzyme derangements. COVID-[address] scan of the abdomen pelvis from 05/13 revealed: 1. There is newly found heterogeneous solid enhancing liver mass involving the right lobe of the liver, segment 5/6. Measures up to 6.8 cm concerning for neoplasm primary or metastatic, atypical appearance for hemangioma, less likely infection. Recommend correlation with follow-up dynamically enhanced MRI and/or ultrasound.. 2. Heavy sigmoid diverticulosis without evidence of acute diverticulitis. 3. 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 4. Spondylosis of the lumbar spine. MRI of the abdomen from 05/16 revealed: 5.5 x 7 cm lobulated heterogeneous mass in the anterior segment of the right lobe of the liver involving some of medial segment of the left lobe and anterior segment of the right lobe. Appearance is concerning for neoplasm. Mild fatty infiltration of the liver. 1.5 x 2 cm lesion in the T9 prevertebral body. This is not seen on all sequences and incompletely characterized but has a lobulated contour which would be atypical for a benign hemangioma. Atherosclerotic disease and mild dilatation of the descending thoracic aorta. Diverticulosis. She underwent biopsy of the liver lesion on 05/29. Unfortunately, it was initially reported to be a HCC, but later revealed, carcinoma but a particular site could not be specified. Repeat biopsy has been recommended. I had referred her to Dr. Austin, considering this to be an HCC. I requested to have the biopsy done at [facility]. It was done at [facility] on 06/16. On talking to the pathologist Dr. Cricket Aguilar today, he feels it is a malignant tumor positive for cytokeratin, however the other immunostains are coming back negative. It is not HCC. There are no neuroendocrine markers. It does not stain for urothelial carcinoma. He is now planning on doing PAX8 and TTF 1 on Monday. If these are also negative he will call it poorly-differentiated carcinoma. Meanwhile she had a PET scan on 06/26, which revealed: 1. The index site of focal liver lesion involving the right lobe of the liver extending superiorly to segment 4 of the left lobe of the liver currently measures approximately 7 cm at its dimension and shows heterogeneous abnormal increased hypermetabolism with an infiltrative morphology and SUV max of 7.9, consistent with clinically known biopsy proved metastatic disease. 2. Focal intense increased tracer avidity is noted in the region of the cecum/ascending colon with SUV max of 7.9, for which direct visualization/colonoscopy is recommended for further clarification, if not recently performed. 3. Solitary subtle asymmetric focal increased tracer avidity near the tip of the right scapula without any underlying definite CT correlate, nonspecific in appearance, may represent posttraumatic versus subtle evolving metastatic disease. 4. Note is also made of 2 discrete sub-5 mm noncalcified, nontracer avid right upper lobar and right lower lobar lung nodules which are too small for accurate characterization. However given the history of biopsy proved metastatic liver disease, likely represent evolving parenchymal metastases, for which dedicated diagnostic CT scan of the chest and/or close interval imaging follow-up as appropriate is recommended. These are too small for image guided percutaneous or bronchoscopic biopsy. Magnification views and ultrasound of the breast on 06/26: Mammography: BI-RADS 2 - Benign Findings Ultrasound: BI-RADS 2 - Benign Findings Family history: She is adopted. Social history: She worked at the [employer] for 30 years. 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 She is . She has 4 children. She has 12 grandkids and 6 great grandkids. She used to smoke but quit 20 years ago. Denies alcohol. ROS: She tells me she has had some bowel complaints off and on for a couple of years. Sometimes she gets constipated and sometimes she has loose bowels. When she gets the hard stools sometimes she has bleeding in her stools. She had a colonoscopy by Dr. Merrill in 2013, which revealed tubular adenoma. Lately she has felt tired. No fever nor chills. Denies headache no dizziness. No chest pain or trouble breathing. Denies any abdominal pain nausea or vomiting no heartburn. She has a good appetite. She eats smaller portions, she has lost some weight. Her is a great chef broiler or fry, she is trying to eat small portions. She has increased frequency of micturition. She has arthritis. She gets pain in her left knee and hands. Her knees hurts. She has been taking Tylenol. No history of depression. No rashes nor pruritus. Review of Systems - Constitutional Reports system reviewed and no additional complaints, except as documented, Reports fatigue, Reports lack of energy, Reports malaise, Reports poor appetite, Reports weakness, Reports weight loss - Eyes Reports system reviewed and no additional complaints, except as documented - ENT Reports system reviewed and no additional complaints, except as documented - Cardiovascular Reports system reviewed and no additional complaints, except as documented - Respiratory Reports no additional respiratory complaints - Gastrointestinal Reports system reviewed and no additional complaints, except as documented, Reports abdominal pain, Reports nausea - Genitourinary Reports no additional female genitourinary complaints - Musculoskeletal Reports system reviewed and no additional complaints, except as documented - Integumentary/Breasts Skin/Breast: Reports no additional skin complaints - Neurologic Reports system reviewed and no additional complaints, except as documented - Psychiatric Reports system reviewed and no additional complaints, except as documented - Endocrine Reports no additional endocrine complaints - Hematologic/Lymphatic Reports system reviewed and no additional complaints, except as documented - Allergic/Immunologic Reports system reviewed and no additional complaints, except as documented Oncology Screenings - ECOG Performance Status ECOG Performance Status: 1 [facility] Medical History: Medical History (Last Updated 07/10/23 @ 18:39 by Edgar Saavedra DO) Arthritis DVT (deep venous thrombosis) Elevated cholesterol History of pulmonary embolus (PE) HTN (hypertension) Liver carcinoma Functional capacity: uses cane/walker Patient : No Family History: Family History (Last Reviewed 07/10/23 @ 18:37 by Edgar Saavedra DO) Father No problems noted. Mother No problems noted. Other No family history of cancer Surgical History: Surgical History (Last Reviewed 07/10/23 @ 18:37 by Edgar Saavedra DO) History of colonoscopy History of hysteroscopy Onset Date: ~2013 History of phacoemulsification of cataract with intraocular lens implantation History of total right knee replacement (TKR) Hx of cholecystectomy Hx of cystoscopy Onset Date: ~2000 Hx of tonsillectomy Social History: Social History (Last Reviewed 07/10/23 @ 18:37 by Edgar Saavedra DO) Living Situation History: Household Members: Spouse Housing: Condominium Are you a primary hearing care practitioner to a significant other at home: No Do you presently have visiting nurse or other home services: No Tobacco History: Patient Tobacco Use Status: Former Tobacco user Years Smoked: over 20 years ago Smoke Quit Date: 2003 e-Cigarette/Vaping Use: Never Used Second Hand Smoke Exposure: No Occupation Assessmet: service: No Current occupational status: retired Sex/Gender Assessment: Sexual orientation: Straight/Heterosexual Gender identity: Female Home Medications and Allergies Current Medications: Current Medications Acetaminophen (Acetaminophen 325 Mg Tablet) 650 mg PO Q6H PRN PRN Reason: Pain, Mild (Pain Scale 1-3) Morphine Sulfate (Morphine Sulfate 4 Mg/Ml Cartridge) 4 mg IVPUSH Q4H PRN; Protocol PRN Reason: Pain, Severe (Pain Scale 7-10) Ondansetron HCl (Ondansetron Hcl 4 Mg/2 Ml Vial) 4 mg IVPUSH Q8H PRN PRN Reason: Nausea and Vomiting Oxycodone HCl (Oxycodone Hcl Immed Release 5 Mg Tablet) 5 mg PO Q4H PRN PRN Reason: Pain, Moderate(Pain Scale 4-6) Sodium Chloride (0.9 % Sodium Chloride Flush 3 Ml Syringe) 3 ml IVFLUSH QSHIFT [facility] Home Medications Medication Instructions Recorded Confirmed Type calcium citrate 500 mg (2,376 mg) 500 mg PO DAILY PRN gi upset 05/18/23 07/10/23 History effervescent tablet atorvastatin 10 mg tablet 10 mg PO BEDTIME 07/10/23 07/10/23 History dicyclomine 10 mg capsule 20 mg PO BID 07/10/23 07/10/23 History sennosides 8.6 mg tablet (senna) 8.6 mg PO BEDTIME PRN constipation 07/10/23 07/10/23 History Allergies Allergy/AdvReac Type Severity Reaction Status Date / Time latex [LATEX] Allergy Intermediate SWELLING Verified 07/10/23 11:35 hazelnut Allergy Unknown ANAPHYLAXIS Verified 07/10/23 11:35 prednisone AdvReac Unknown Unknown Verified 07/10/23 11:35 sulfite AdvReac Unknown Nasal Verified 07/10/23 11:35 swelling Physical Exam Vital signs: Vital Signs Temp 97.7 F 07/10/23 19:08 Pulse 63 07/10/23 19:08 Resp 17 07/10/23 19:08 BP 162/81 H 07/10/23 19:08 Pulse Ox 97 07/10/23 19:08 O2 Del Method Room Air 07/10/23 19:08 Intake & Output 07/10/23 07/10/23 07/11/23 06:59 18:59 06:59 Intake Total 500 / 500 Balance 500 / 500 Intake: Intake, IV Amount 500 / 500 0.9 % Sodium Chloride 500 ml @ 500 / 500 500 mls/hr IV .Q1H [facility] Rx#: [id number] Other: Weight 83.007 kg Weight 83.007 kg - Constitutional Present: moderate distress - Routine HEENT Exam Head: Present: normal inspection ENT: Present: mucous membranes moist - Routine Neck Exam Present: supple - Routine Respiratory Exam Present: CTAB - Routine Cardiovascular Exam Cardiovascular: Present: S1, S2 - Routine Abdominal Exam Present: tenderness - Routine Extremities Exam Present: nontender Hem/Onc Consult Result - Labs CBC & Chem 7: 07/12/23 06:06 07/12/23 06:06 Labs: Short CBC 07/10/23 Range/Units 12:01 WBC 7.8 (4.8-10.8) X10*3/uL Hgb 17.4 H (12.0-16.0) g/dl Hct 51.8 H (37.0-47.0) % Plt Count 141 L (160-400) X10*3/uL BMP 07/10/23 12:01 Sodium 140 Potassium 4.4 Chloride 100 Carbon Dioxide 27 BUN 24 H Creatinine 1.20 Calcium 10.4 H D Liver Function 07/10/23 Range/Units 12:01 Total Bilirubin 1.1 H (0.0-1.0) mg/dL AST 46 H (5-31) U/L ALT 42 H (0-31) U/L Alkaline Phosphatase 335 H (39-117) U/L Albumin 4.1 (3.5-5.0) g/dL Urine 07/10/23 Range/Units 15:45 Urine Color Yellow Urine Appearance Clear Urine pH 6.5 (5.0-9.0) Ur Specific Sanderson >= 1.030 H (1.005-1.025) Urine Protein Negative (Neg-Trace) mg/dL Urine Glucose (UA) Negative (Negative) mg/dL Assessment and Plan Patient Active problem list reviewed?: Yes (1) HCC (hepatocellular carcinoma) Status: Acute Assessment and plan: 83 year old unfortunate lady with recent diagnosis of HCC. Initial biopsy on 05/29 was non diagnostic. Repeat biopsy done at [facility] on 06/16 by revealed HCC. She was seen by him on 07/02. He offered her trans-arterial therapy. Meanwhile she had a PET scan on 06/26 which raised concern for a lesion in the transverse colon. She was trying to take the prep today, when she developed abdominal pain and nausea. She was advised by GI to come in for evaluation, to see id she can undergo the prep in house once her nausea can be controlled with meds. DATA BASE: LFTs:1.1/335/46/42. CAT SCAN: Enlarging hepatic masses, with new subcapsular mass, intra hepatic biliary dilatation. Concern would be a subcapsular bleed. PLAN: She will be seen by GI in the morning. Will discuss with them and make a plan. Meanwhile continue with anti-emetics and pain management. Thanks, CC: Santos Reyez. Addendum: Patient seen by GI. She is willing to have the prep slowly under supervision. She will have a colonoscopy in the morning. Will make further treatment plans based upon the results. - Time Spent With Patient Time Spent with Patient (in minutes): 30
[2023-07-10 22:06] VITALS: BP 114/74; PULSE 65; RESP 17; TEMP 36.3; O2SAT 95
--- NOTE | 2023-07-10 23:22 | PC.NURSE ---
pt to beside commode, to void. pt denies pain srinivas. resting quietly on stretcher awaiting bed assignment. rr even/unlabored. call sawyer within reach. plan of care ongoing.
[2023-07-11] MEDS: 0.9 % Sodium Chloride Flush 3 ML SYRINGE IVFLUSH ×4 (03:25→20:56)
[2023-07-11 04:39] VITALS: BP 141/81; PULSE 68; RESP 17; TEMP 36.4; O2SAT 95
[2023-07-11 05:14] LABS: MANUAL DIFF FLAG NO
[2023-07-11 05:19] LABS: Basophils Percent Auto 0.3 % (0-2); Eosinophils Percent Auto 0.7 % (0-4); Hematocrit 47.5 % (37.0-47.0); Hemoglobin 16.1 g/dl (12.0-16.0); Imm Gran Abs Auto 0.02 X10*3/uL (0.00-0.03); Imm Gran Pct Auto 0.3 % (0.0-0.4); Lymphocytes Absolute Auto 1.2 X10*3/uL (1.2-4.9); Lymphocytes Percent Auto 19.5 % (20-40); Mean Corpuscular HGB Conc 33.9 g/dl (31.0-35.0); Mean Corpuscular Hemoglobin 32.4 pg (27.0-33.0); Mean Corpuscular Volume 95.6 fL (80.0-98.0); Mean Platelet Volume 11.7 fL (9.4-12.3); Monocytes Absolute Auto 0.6 X10*3/uL (0.1-1.2); Neutrophils Absolute Auto 4.3 x10*3/uL (2.0-8.3); Neutrophils Percent Auto 70.2 % (45-73); Platelet Count 113 X10*3/uL (160-400); Red Blood Count 4.97 X10*6/uL (4.20-5.50); Red Cell Distribution Width 14.8 % (11.0-16.0); White Blood Count 6.1 X10*3/uL (4.8-10.8)
[2023-07-11 05:20] LABS: Prothrombin Time 12.4 SEC (11.1-13.3)
[2023-07-11 05:34] LABS: Alanine Aminotransferase 37 U/L (0-31); Albumin Level 3.6 g/dL (3.5-5.0); Alkaline Phosphatase 301 U/L (39-117); Anion Gap 15 (12-20); Aspartate Amino Transferase 47 U/L (5-31); Bilirubin Total 1.3 mg/dL (0.0-1.0); Blood Urea Nitrogen 20 mg/dL (9-16); Calcium 9.6 mg/dL (8.4-10.2); Carbon Dioxide 24 mmol/L (22-29); Chloride 104 mmol/L (96-108); Creatinine Clr Calc Pharmacy 59.7; Estimated Glomerular Filt Rate > 60; Glucose Random 83 mg/dL (60-115); Sodium 139 mmol/L (135-145); Total Protein 6.2 g/dL (6.5-8.0)
[2023-07-11 08:14] VITALS: BP 109/73; PULSE 69; RESP 20; TEMP 36.1; O2SAT 97
--- NOTE | 2023-07-11 10:58 | P.CNGI_ITS ---
History of Present Illness Data of Consult Service Date: 07/11/23 Requesting physician: Lilia Méndez Primary Care Provider: Santos Reyez, [facility]- HPI Reason for consult: HCC, failure to thrive This is an 83-year-old female with past medical history of biopsy-proven HCC in the background of fatty liver that has likely led to cirrhosis, recurrent DVT, hypertension, who was advised to come to the emergency room for poor p.o. intake and concern for failure to thrive. To recap, patient established care with [facility] for intermittent abdominal pain with changes in bowel habits in 2021. Non-con imaging at that time did not shgow any liver lesions. However cont to have R sided abd discomfort and diarrhea for which she was eventually seen in ER in Apr 2023 at [facility] time a contrasted CT showed a new finding of R lobe 6.8 cm solid mass. Initial bx here at [facility] [place] was not adequate but a repeat Bx at [facility] confirmed the diagnosis of HCC. SHe is under care of Dr Li and Dr Sorensen for management. As part of work up, a PET scan was ordered 06/2023 which was pertinent for FDG avid focus in cecum versus ascending colon. A colonoscopy was recommended for further evaluation indirect visualization. However, at home, patient reports poor appetite, unable to take anything solid. Feels full after just 1-2 bites. Nausea, with occasional dry heaving and vomiting. Her had called the office due to these concerns, and they were advised to present to the emergency room. Vital normal on arrival. Labs were significant for erythrocytosis and thrombocytopenia. Chem 7 with elevated LFTs with marked worsening of alkaline phosphatase. Repeat CT abdomen and pelvis with IV contrast shows enlargement of the existing mass to almost 10 cm in the longest dimension. There is also a new subcapsular mass in the right lobe measuring 1.7 cm in the longest dimension. With dilated intrahepatic ducts. CBD measures 0.5 cm on review of films. On bedside evaluation, is also present at bedside. Patient reports improvement in abdominal discomfort and nausea. Thinks that she will be able to tolerate the prep, if done slowly and under supervision. Review of Systems 2 Review of Systems: Yes all other systems are reviewed and are negative PMFSH Past Medical History Medical History (Updated 07/11/23 @ 13:51 by Tavia Dinh MD) Liver carcinoma History of pulmonary embolus (PE) Arthritis Elevated cholesterol DVT (deep venous thrombosis) HTN (hypertension) Family History Family History Father No problems noted. Mother No problems noted. Other No family history of cancer Surgical History Surgical History History of colonoscopy History of hysteroscopy (~2013) Hx of cystoscopy (~2000) Hx of tonsillectomy History of phacoemulsification of cataract with intraocular lens implantation Hx of cholecystectomy History of total right knee replacement (TKR) Social History Social History Household Members: Spouse Housing: House Are you a primary landcare officer to a significant other at home: No Do you presently have visiting nurse or other home services: No Alcohol intake: never Comment: PATIENT INDICATED UNSTEADY ON FEET AND WILL REQUIRE ACCOMPANY HER Patient Tobacco Use Status: Former Tobacco user Years Smoked: over 20 years ago e-Cigarette/Vaping Use: Never Used Second Hand Smoke Exposure: No service: No Current occupational status: retired Sexual orientation: Straight/Heterosexual Gender identity: Female Cognitive needs: No Hearing needs: No Vision needs: No Meds Allergies Allergy/AdvReac Type Severity Reaction Status Date / Time latex [LATEX] Allergy Intermediate SWELLING Verified 07/10/23 11:35 hazelnut Allergy Unknown ANAPHYLAXIS Verified 07/10/23 11:35 prednisone AdvReac Unknown Unknown Verified 07/10/23 11:35 sulfite AdvReac Unknown Nasal Verified 07/10/23 11:35 swelling Active Medications: Current Medications Acetaminophen (Acetaminophen 325 Mg Tablet) 650 mg PO Q6H PRN PRN Reason: Pain, Mild (Pain Scale 1-3) Morphine Sulfate (Morphine Sulfate 4 Mg/Ml Cartridge) 4 mg IVPUSH Q4H PRN; Protocol PRN Reason: Pain, Severe (Pain Scale 7-10) Ondansetron HCl (Ondansetron Hcl 4 Mg/2 Ml Vial) 4 mg IVPUSH Q8H PRN PRN Reason: Nausea and Vomiting Oxycodone HCl (Oxycodone Hcl Immed Release 5 Mg Tablet) 5 mg PO Q4H PRN PRN Reason: Pain, Moderate(Pain Scale 4-6) Sodium Chloride (0.9 % Sodium Chloride Flush 3 Ml Syringe) 3 ml IVFLUSH QSHIFT [facility] Last Admin: 07/11/23 09:48 Dose: 3 ml Home Medications Medication Instructions Recorded Confirmed Last Taken Type calcium citrate 500 mg (2,376 mg) 500 mg PO DAILY PRN gi upset 05/18/23 07/10/23 05/29/23 History effervescent tablet atorvastatin 10 mg tablet 10 mg PO BEDTIME 07/10/23 07/10/23 Unknown History dicyclomine 10 mg capsule 20 mg PO BID 07/10/23 07/10/23 Unknown History sennosides 8.6 mg tablet (senna) 8.6 mg PO BEDTIME PRN constipation 07/10/23 07/10/23 Unknown History Physical Exam 2 Vital Signs: Vital Signs: Last Vital Signs Temp 97.0 F 07/11/23 08:14 Pulse 69 07/11/23 08:14 Resp 20 07/11/23 08:14 BP 109/73 07/11/23 08:14 Pulse Ox 97 07/11/23 08:14 O2 Del Method Room Air 07/11/23 08:14 BMI result Body Mass Index 27.8 Elderly frail female No obvious icterus Abdomen soft, distended, tender in the periumbilical region and right upper quadrant Extremities with mild pitting edema A/Ox3, no focal deficits Results Labs 07/11/23 04:27 07/11/23 04:27 Labs: Short CBC 07/10/23 07/11/23 Range/Units 12:01 04:27 WBC 7.8 6.1 (4.8-10.8) X10*3/uL Hgb 17.4 H 16.1 H (12.0-16.0) g/dl Hct 51.8 H 47.5 H (37.0-47.0) % Plt Count 141 L 113 L (160-400) X10*3/uL BMP 07/10/23 07/11/23 12:01 04:27 Sodium 140 139 Potassium 4.4 4.0 Chloride 100 104 Carbon Dioxide 27 24 BUN 24 H 20 H Creatinine 1.20 0.82 Calcium 10.4 H D 9.6 D Liver Function 07/10/23 07/11/23 Range/Units 12:01 04:27 Total Bilirubin 1.1 H 1.3 H (0.0-1.0) mg/dL AST 46 H 47 H (5-31) U/L ALT 42 H 37 H (0-31) U/L Alkaline Phosphatase 335 H 301 H (39-117) U/L Albumin 4.1 3.6 (3.5-5.0) g/dL Urine 07/10/23 Range/Units 15:45 Urine Color Yellow Urine Appearance Clear Urine pH 6.5 (5.0-9.0) Ur Specific [place] >= 1.030 H (1.005-1.025) Urine Protein Negative (Neg-Trace) mg/dL Urine Glucose (UA) Negative (Negative) mg/dL Assessment and Plan (1) HCC (hepatocellular carcinoma): Status: Acute (2) Adult failure to thrive: Status: Acute (3) Thrombocytopenia: Status: Acute (4) Abnormal PET scan of colon: Status: Acute (5) Intrahepatic bile duct dilation: Status: Acute Plan Ddx include larger polyp vs mass in ascending colon/cecum. Will proceed with colo as planned with prep instructions as below. Will also jackie her for EGD at the same time r/o CSPH given platelet count (though spleen normal sized). Dilated intrahepatic ducts and increase in cholestatic LFTs 2/2 mass effect from large liver lesion - does not appear to be stentable from my review of films but will discuss with biliary colleague. Plan: - clear liquid diet today - Start golytely 2000ml at 2pm and then repeat 2000ml at 6pm. If output murky tmrw AM, can give enema - NPO after midnight - continue to hold Eliquis - EGD/colo tomorrow Thank you for allowing me to participate in the patient's care. Please do not hesitate to reach out for any questions or concerns. Procedures Date of Service Date of Service: 07/11/23
[2023-07-11 11:26] VITALS: BP 153/93; PULSE 72; RESP 20; TEMP 37; O2SAT 94
--- NOTE | 2023-07-11 14:35 | P.PNIM_ITS ---
Subjective Subjective Date of Service: 07/11/23 Interval History: No acute issues overnight. Pain control adequate Review of Systems Denies chest pain Denies shortness of breath Admits nausea; denies vomiting diarrhea Denies fever chills Physical Exam 2 Vital Signs: Vital Signs: Last Vital Signs Temp 98.6 F 07/11/23 11:26 Pulse 72 07/11/23 11:26 Resp 20 07/11/23 11:26 BP 153/93 H 07/11/23 11:26 Pulse Ox 94 07/11/23 11:26 O2 Del Method Room Air 07/11/23 11:26 BMI result Body Mass Index 27.8 Const: Other: Awake alert resting comfortably in bed no acute distress Resp: Other: Clear to auscultation bilaterally no rales rhonchi or wheezes Cardio: Other: No S4; positive S1-S2; no S3 murmurs rubs or gallops GI: Other: Soft minimal tenderness across upper abdomen without rebound. Bowel sounds x4 quadrants Neuro: Other: Cranial nerves 2-12 grossly intact as tested. Motor is 5/5 as tested in bed. Sensation is intact. Cognition appropriate Extrem: Other: No edema bilaterally Objective Data Active Medications Acetaminophen (Acetaminophen 325 Mg Tablet) 650 mg PO Q6H PRN PRN Reason: Pain, Mild (Pain Scale 1-3) Amlodipine Besylate (Amlodipine Besylate 2.5 Mg Tablet) 2.5 mg PO DAILY [facility]; Protocol Dicyclomine HCl (Dicyclomine Hcl 10 Mg Capsule) 20 mg PO BID [facility] Morphine Sulfate (Morphine Sulfate 4 Mg/Ml Cartridge) 4 mg IVPUSH Q4H PRN; Protocol PRN Reason: Pain, Severe (Pain Scale 7-10) Non-Formulary Medication (Irbesartan) 75 mg PO DAILY [facility] Omeprazole (Omeprazole 40 Mg Capsule.Dr) 40 mg PO DAILY [facility] Ondansetron HCl (Ondansetron Hcl 4 Mg/2 Ml Vial) 4 mg IVPUSH Q8H PRN PRN Reason: Nausea and Vomiting Oxycodone HCl (Oxycodone Hcl Immed Release 5 Mg Tablet) 5 mg PO Q4H PRN PRN Reason: Pain, Moderate(Pain Scale 4-6) Polyethylene Glycol/Electrolytes (Peg 3350/Na Sulf,Bicarb,Cl/Kcl 4,000 Ml Soln.Recon) 240 ml PO Q10M [facility] Stop: 07/11/23 17:26 Sodium Chloride (0.9 % Sodium Chloride Flush 3 Ml Syringe) 3 ml IVFLUSH QSHIFT [facility] Last Admin: 07/11/23 09:48 Dose: 3 ml Documented By: WOLF Labs 07/11/23 04:27 07/11/23 04:27 Labs: Laboratory Results - last 24 hr 07/10/23 07/11/23 15:45 04:27 MCV 95.6 MCH 32.4 MCHC 33.9 RDW 14.8 Plt Count 113 L MPV 11.7 Immature Gran % (Auto) 0.3 Neut % (Auto) 70.2 Lymph % (Auto) 19.5 L [place] % (Auto) 9.0 Eos % (Auto) 0.7 Baso % (Auto) 0.3 Lymph # (Auto) 1.2 [place] # (Auto) 0.6 Eos # (Auto) 0.0 Baso # (Auto) 0.0 Abs Immat Gran (auto) 0.02 Absolute Neuts (auto) 4.3 Absolute Nucleated RBC 0.000 Nucleated RBC % (auto) 0.0 PT 12.4 D INR 1.0 Anion Gap 15 Estim Creat Clear Calc 59.7 Estimated GFR > 60 Random Glucose 83 Calcium 9.6 D Total Bilirubin 1.3 H AST 47 H ALT 37 H Alkaline Phosphatase 301 H Total Protein 6.2 L Albumin 3.6 Urine Color Yellow Urine Appearance Clear Urine pH 6.5 Ur Specific [place] >= 1.030 H Urine Protein Negative Urine Glucose (UA) Negative Urine Ketones 15 Urine Blood Trace H Urine Nitrite Negative Ur Leukocyte Esterase Negative Urine RBC 3-5 H Urine WBC 0-5 Ur Squamous Epith Cells 3-5 Urine Bacteria None Seen Hyaline Casts 0-2 Assessment and Plan (1) Liver carcinoma: Status: Acute (2) History of pulmonary embolus (PE): Status: Acute Plan 83-year-old female with history of pulmonary embolus/recurrent DVTs on Eliquis presents with abdominal pain nausea without vomiting. Recently diagnosed with liver carcinoma; scheduled for outpatient colonoscopy however unable to complete prep. Has been off Eliquis times 48 hours. Discussed with GI and inability to complete prep and was suggested she come to ER for evaluation. CT demonstrates worsening liver mass. 1. Liver carcinoma Complete pathology pending as per Oncology note. -start GoLYTELY prep this afternoon; colonoscopy in a.m. -NPO after midnight -continue to hold Eliquis -morphine/oxycodone as needed for pain 2. History of pulmonary embolus/recurrent DVTs -Eliquis held 48 hours; will continue to hold pending colonoscopy -restart when appropriate 3. Hypertension -acceptable control on current therapies -will adjust as indicated Full code Pneumatics Requires ongoing hospitalization for specialist evaluation of liver mass with possible metastasis Quality Stroke Does the patient have a stroke diagnosis?: No VTE Prior VTE?: No VTE Risk Level:: Medical - moderate - high VTE Device Contraindication: N/A - Device Ordered VTE Drug Contraindication: Treatment Not Indicated
[2023-07-11] MEDS: Omeprazole 40 MG CAPSULE.DR PO (15:56)
[2023-07-11] MEDS: amLODIPine Besylate 2.5 MG TABLET PO (15:56)
[2023-07-11 15:58] VITALS: BP 125/68; PULSE 83; RESP 16; TEMP 36.6; O2SAT 97
[2023-07-11] MEDS: PEG 3350/Na Sulf,Bicarb,Cl/KCL 4,000 ML SOLN.RECON 4000 ML PO (16:27)
[2023-07-11] MEDS: ondansetron HCL 4 MG/2 ML VIAL IVPUSH (17:32)
[2023-07-11 20:32] VITALS: BMI 26.4
[2023-07-11 20:42] VITALS: BP 154/83; PULSE 63; RESP 18; TEMP 36.3; O2SAT 97
[2023-07-11] MEDS: Dicyclomine HCl 10 MG CAPSULE 20 MG PO (20:55)
[2023-07-12] VITALS (11 sets, daily range): BP systolic 126–166; BP diastolic 65–94; PULSE 59–70; RESP 16–20; TEMP 36–37.1; O2SAT 93–99; BMI 26.4
[2023-07-12] MEDS: Omeprazole 40 MG CAPSULE.DR PO (05:54)
[2023-07-12 06:42] LABS: MANUAL DIFF FLAG NO
[2023-07-12 06:54] LABS: Basophils Percent Auto 0.3 % (0-2); Eosinophils Percent Auto 0.5 % (0-4); Hematocrit 48.2 % (37.0-47.0); Hemoglobin 16.4 g/dl (12.0-16.0); INTERNATIONAL NORM RATIO 0.9 (0.9-1.1); Imm Gran Abs Auto 0.02 X10*3/uL (0.00-0.03); Imm Gran Pct Auto 0.3 % (0.0-0.4); Lymphocytes Absolute Auto 1.3 X10*3/uL (1.2-4.9); Lymphocytes Percent Auto 19.3 % (20-40); Mean Corpuscular Hemoglobin 32.2 pg (27.0-33.0); Mean Corpuscular Volume 94.7 fL (80.0-98.0); Mean Platelet Volume 11.5 fL (9.4-12.3); Monocytes Absolute Auto 0.5 X10*3/uL (0.1-1.2); Monocytes Percent Auto 7.7 % (2-11); Neutrophils Absolute Auto 4.7 x10*3/uL (2.0-8.3); Neutrophils Percent Auto 71.9 % (45-73); Platelet Count 119 X10*3/uL (160-400); Prothrombin Time 11.2 SEC (11.1-13.3); Red Blood Count 5.09 X10*6/uL (4.20-5.50); Red Cell Distribution Width 14.7 % (11.0-16.0); White Blood Count 6.5 X10*3/uL (4.8-10.8)
[2023-07-12] MEDS: Valsartan 40 MG TABLET PO (06:57)
[2023-07-12] MEDS: oxyCODONE HCl Immed Release 5 MG TABLET PO (06:57)
[2023-07-12] MEDS: Dicyclomine HCl 10 MG CAPSULE 20 MG PO ×2 (06:57→20:08)
[2023-07-12] MEDS: amLODIPine Besylate 2.5 MG TABLET PO (06:57)
[2023-07-12] MEDS: 0.9 % Sodium Chloride Flush 3 ML SYRINGE IVFLUSH ×2 (06:59→20:09)
[2023-07-12 07:10] LABS: Alanine Aminotransferase 44 U/L (0-31); Albumin Level 3.7 g/dL (3.5-5.0); Alkaline Phosphatase 322 U/L (39-117); Anion Gap 17 (12-20); Aspartate Amino Transferase 50 U/L (5-31); Bilirubin Total 0.9 mg/dL (0.0-1.0); Blood Urea Nitrogen 19 mg/dL (9-16); Calcium 9.6 mg/dL (8.4-10.2); Carbon Dioxide 25 mmol/L (22-29); Chloride 101 mmol/L (96-108); Creatinine Clr Calc Pharmacy 55.6; Estimated Glomerular Filt Rate > 60; Glucose Random 97 mg/dL (60-115); Potassium 3.6 mmol/L (3.3-5.1); Sodium 139 mmol/L (135-145); Total Protein 6.4 g/dL (6.5-8.0)
--- NOTE | 2023-07-12 09:41 | MHC.CM.PN ---
PT REPORTS SHE LIVES WITH HER AND IS INDEPENDENT WITH CARE SHE HAS NO DME AND NO SERVICES SHE SAYS SHE HAS A HCP, COPY REQUESTED PCP: SANJANA CARDOSO IMM DELIVERED DCP: HOME NO SERVICES VIA PRIVATE TRANSPORT
--- NOTE | 2023-07-12 11:51 | MHC.CLN ---
NUTRITION NPO TODAY FOR COLONOSCOPY. SIGNIFICANT WEIGHT LOSS X ONE MONTH AND 6 MONTHS. REPORTS THAT PATIENT TAKING SMALL AMOUNTS OF FOOD AT HOME. HAS TRIED SUPPLEMENTS AND PATIENT DISLIKED. FOLLOW FOR DIET ADVANCEMENT AND INTAKE. SEE CLINICAL NUTRITION ASSESSMENT 07/12/23.
--- NOTE | 2023-07-12 12:08 | P.PNIM_ITS ---
Subjective Subjective Date of Service: 07/12/23 Interval History: No acute issues overnight. Tolerated GoLYTELY prep Review of Systems Denies chest pain Denies shortness of breath Admits nausea; denies vomiting diarrhea Denies fever chills Physical Exam 2 Vital Signs: Vital Signs: Last Vital Signs Temp 97.2 F 07/12/23 11:25 Pulse 60 07/12/23 11:25 Resp 18 07/12/23 11:25 BP 139/74 07/12/23 11:25 Pulse Ox 95 07/12/23 11:25 O2 Del Method Room Air 07/12/23 11:25 BMI result Body Mass Index 26.4 Const: Other: Awake alert resting comfortably in bed no acute distress Resp: Other: Clear to auscultation bilaterally no rales rhonchi or wheezes Cardio: Other: No S4; positive S1-S2; no S3 murmurs rubs or gallops GI: Other: Soft minimal tenderness across upper abdomen without rebound. Bowel sounds x4 quadrants Neuro: Other: Cranial nerves 2-12 grossly intact as tested. Motor is 5/5 as tested in bed. Sensation is intact. Cognition appropriate Extrem: Other: No edema bilaterally Objective Data Active Medications Acetaminophen (Acetaminophen 325 Mg Tablet) 650 mg PO Q6H PRN PRN Reason: Pain, Mild (Pain Scale 1-3) Amlodipine Besylate (Amlodipine Besylate 2.5 Mg Tablet) 2.5 mg PO DAILY [facility]; Protocol Last Admin: 07/12/23 06:57 Dose: 2.5 mg Documented By: ILEANA Dicyclomine HCl (Dicyclomine Hcl 10 Mg Capsule) 20 mg PO BID [facility] Last Admin: 07/12/23 06:57 Dose: 20 mg Documented By: ILEANA Morphine Sulfate (Morphine Sulfate 4 Mg/Ml Cartridge) 4 mg IVPUSH Q4H PRN; Protocol PRN Reason: Pain, Severe (Pain Scale 7-10) Omeprazole (Omeprazole 40 Mg Capsule.) 40 mg PO DAILY@0630 [facility] Last Admin: 07/12/23 05:54 Dose: 40 mg Documented By: LISA Ondansetron HCl (Ondansetron Hcl 4 Mg/2 Ml Vial) 4 mg IVPUSH Q8H PRN PRN Reason: Nausea and Vomiting Last Admin: 07/11/23 17:32 Dose: 4 mg Documented By: MARIAM Oxycodone HCl (Oxycodone Hcl Immed Release 5 Mg Tablet) 5 mg PO Q4H PRN PRN Reason: Pain, Moderate(Pain Scale 4-6) Last Admin: 07/12/23 06:57 Dose: 5 mg Documented By: ILEANA Sodium Chloride (0.9 % Sodium Chloride Flush 3 Ml Syringe) 3 ml IVFLUSH QSHIFT [facility] Last Admin: 07/12/23 06:59 Dose: 3 ml Documented By: ILEANA Valsartan (Valsartan 40 Mg Tablet) 40 mg PO DAILY [facility] Last Admin: 07/12/23 06:57 Dose: 40 mg Documented By: ILEANA Labs 07/12/23 06:06 07/12/23 06:06 Labs: Laboratory Results - last 24 hr 07/12/23 06:06 MCV 94.7 MCH 32.2 MCHC 34.0 RDW 14.7 Plt Count 119 L MPV 11.5 Immature Gran % (Auto) 0.3 Neut % (Auto) 71.9 Lymph % (Auto) 19.3 L [place] % (Auto) 7.7 Eos % (Auto) 0.5 Baso % (Auto) 0.3 Lymph # (Auto) 1.3 [place] # (Auto) 0.5 Eos # (Auto) 0.0 Baso # (Auto) 0.0 Abs Immat Gran (auto) 0.02 Absolute Neuts (auto) 4.7 Absolute Nucleated RBC 0.000 Nucleated RBC % (auto) 0.0 PT 11.2 INR 0.9 Anion Gap 17 Estim Creat Clear Calc 55.6 Estimated GFR > 60 Random Glucose 97 Calcium 9.6 Total Bilirubin 0.9 AST 50 H ALT 44 H Alkaline Phosphatase 322 H Total Protein 6.4 L Albumin 3.7 Assessment and Plan (1) Liver carcinoma: Status: Acute (2) History of pulmonary embolus (PE): Status: Acute Plan 83-year-old female with history of pulmonary embolus/recurrent DVTs on Eliquis presents with abdominal pain nausea without vomiting. Recently diagnosed with liver carcinoma; scheduled for outpatient colonoscopy however unable to complete prep. Has been off Eliquis times 48 hours. Discussed with GI and inability to complete prep and was suggested she come to ER for evaluation. CT demonstrates worsening liver mass. 1. Liver carcinoma Complete pathology pending as per Oncology note. -tolerated GoLYTELY prep -continue to hold Eliquis -morphine/oxycodone as needed for pain -EGD/colon today 2. History of pulmonary embolus/recurrent DVTs -Eliquis held 48 hours; will continue to hold pending colonoscopy -restart when appropriate 3. Hypertension -acceptable control on current therapies -will adjust as indicated Full code Pneumatics Requires ongoing hospitalization for specialist evaluation of liver mass with possible metastasis Quality Stroke Does the patient have a stroke diagnosis?: No VTE Prior VTE?: No VTE Risk Level:: Medical - moderate - high VTE Device Contraindication: N/A - Device Ordered VTE Drug Contraindication: Treatment Not Indicated
--- NOTE | 2023-07-12 13:01 | MHC.SHP ---
Pre-Procedural Eval Section A - 24 Hr Update-Section A only Date of Service: 07/12/23 The patient is an INPATIENT: Yes The patient has been examined within 24 hours of the surgical procedure. The History & Physical has been completed within 30 days and I have reviewed it.: Yes Section B - Complete if H&P > 30 days Chief Complaint: Abdominal pain Allergies: Allergies Allergy/AdvReac Type Severity Reaction Status Date / Time latex [LATEX] Allergy Intermediate SWELLING Verified 07/10/23 11:35 hazelnut Allergy Unknown ANAPHYLAXIS Verified 07/10/23 11:35 prednisone AdvReac Unknown Unknown Verified 07/10/23 11:35 sulfite AdvReac Unknown Nasal Verified 07/10/23 11:35 swelling Plan Diagnosis/Plan: Unchanged I have reviewed the history and physical and performed a pertinent physical examination on my patient. No changes have occurred unless specified. Time Spent With Patient Time: Total time managing care of this patient today ____ minutes.
--- NOTE | 2023-07-12 13:01 | PM.GIPN ---
Subjective Subjective Date of Service: 07/12/23 Interval History: no abdominal pain passing stool easily with prep denies nausea or vomiting Critical Care Time (minutes): 0 Physical Exam Vital Signs: Vital Signs: Last Vital Signs Temp 97.2 F 07/12/23 11:25 Pulse 60 07/12/23 11:25 Resp 18 07/12/23 11:25 BP 139/74 07/12/23 11:25 Pulse Ox 95 07/12/23 11:25 O2 Del Method Room Air 07/12/23 11:25 BMI result Body Mass Index 26.4 EXAM: GENERAL: The patient is relaxed VITAL SIGNS:see workflow HEENT: Nonicteric sclerae, PERRLA, EOMI. Oropharynx clear. Moist mucous membranes. Conjunctivae appear well perfused. No thyroid mass. CHEST: Chest wall is nontender. HEART: Regular rate and rhythm without murmurs. LUNGS: Clear to auscultation bilaterally. ABDOMEN: Soft, positive bowel sounds, nontender, no organomegaly.no flank tenderness SKIN: No rash, no excessive bruising, petechiae, or purpura. NEUROLOGIC: Cranial nerves II-XII intact without motor/sensory deficit. Psych: normal affect Objective Data Labs 07/12/23 06:06 07/12/23 06:06 Labs: Laboratory Results - last 24 hr 07/12/23 06:06 WBC 6.5 RBC 5.09 Hgb 16.4 H Hct 48.2 H MCV 94.7 MCH 32.2 MCHC 34.0 RDW 14.7 Plt Count 119 L MPV 11.5 Immature Gran % (Auto) 0.3 Neut % (Auto) 71.9 Lymph % (Auto) 19.3 L [place] % (Auto) 7.7 Eos % (Auto) 0.5 Baso % (Auto) 0.3 Lymph # (Auto) 1.3 [place] # (Auto) 0.5 Eos # (Auto) 0.0 Baso # (Auto) 0.0 Abs Immat Gran (auto) 0.02 Absolute Neuts (auto) 4.7 Absolute Nucleated RBC 0.000 Nucleated RBC % (auto) 0.0 PT 11.2 INR 0.9 Sodium 139 Potassium 3.6 Chloride 101 Carbon Dioxide 25 Anion Gap 17 BUN 19 H Creatinine 0.86 Estim Creat Clear Calc 55.6 Estimated GFR > 60 Random Glucose 97 Calcium 9.6 Total Bilirubin 0.9 AST 50 H ALT 44 H Alkaline Phosphatase 322 H Total Protein 6.4 L Albumin 3.[address] scan - abdomen: Attestation: I personally reviewed and interpreted this imaging study as follows: My impression: intra parenchymal masses in liver, no CBD compression Procedures Date of Service Date of Service: 07/12/23 Progress Note: A&P Assessment and plan (1) Abnormal PET scan of colon: Status: Acute Plan 1/ Abn imaging with possible colonic mass 2/ Liver masses, nml bili PLAN: 1/ colonoscopy today for further assessment with EGD to r/o varices 2/ Bili is normal and I dont see any extrinsic compression of the CBD at this time, would not benefit from stenting and ERCP Time Spent With Patient Time: Total time managing care of this patient today ____ minutes. Quality Stroke Does the patient have a stroke diagnosis?: No VTE Prior VTE?: No VTE Risk Level:: Medical - moderate - high VTE Device Contraindication: N/A - Device Ordered VTE Drug Contraindication: Treatment Not Indicated
--- NOTE | 2023-07-12 14:22 | HO.ANESPROP2 ---
[facility] Active Problems Active Problems: All Active Problems (Updated 07/11/23 @ 13:51 by Tavia Dinh MD) Intrahepatic bile duct dilation (Acute) Abnormal PET scan of colon (Acute) Thrombocytopenia (Acute) HCC (hepatocellular carcinoma) (Acute) History of pulmonary embolus (PE) (Acute) Adult failure to thrive (Acute) Weakness (Acute) Liver mass (Acute) Liver carcinoma (Acute) Liver lesion, right lobe (Acute) Liver mass (Acute) Muscle strain (Acute) Loss of hearing (Acute) Bilateral knee pain (Acute) Erythrocytosis (Acute) Physical exam (Acute) Systolic murmur (Acute) Vitamin D deficiency (Acute) Post-menopausal (Acute) Screening for osteoporosis (Acute) Back pain (Acute) 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 (Acute) DVT (deep venous thrombosis) (Acute) Swelling of right lower extremity (Acute) HTN (hypertension) (Acute) Hx of deep venous thrombosis (Acute) Arthritis of right hip (Acute) Primary generalized (osteo)arthritis (Acute) Post-menopausal bleeding (Acute) Renal cysts, acquired, bilateral (Acute) Cellulitis of foot (Acute) Irritable bowel syndrome with mixed bowel habits (Acute) Past Medical History Medical History (Updated 07/11/23 @ 13:51 by Tavia Dinh MD) Liver carcinoma History of pulmonary embolus (PE) Arthritis Elevated cholesterol DVT (deep venous thrombosis) HTN (hypertension) Functional capacity: uses cane/walker Family History Family History Father No problems noted. Mother No problems noted. Other No family history of cancer Family history of problems with anesthesia: No Surgical History Surgical History History of colonoscopy History of hysteroscopy (~2013) Hx of cystoscopy (~2000) Hx of tonsillectomy History of phacoemulsification of cataract with intraocular lens implantation Hx of cholecystectomy History of total right knee replacement (TKR) History of Problems with Anesthesia: No Social History Social History Household Members: Spouse Housing: Condominium Are you a primary career and transition teacher to a significant other at home: No Do you presently have visiting nurse or other home services: No Alcohol intake: never Comment: PATIENT INDICATED UNSTEADY ON FEET AND WILL REQUIRE ACCOMPANY HER Patient Tobacco Use Status: Former Tobacco user Quit Date: 2004 Years Smoked: over 20 years ago e-Cigarette/Vaping Use: Never Used Second Hand Smoke Exposure: No service: No Current occupational status: retired Sexual orientation: Straight/Heterosexual Gender identity: Female Cognitive needs: No Hearing needs: No Vision needs: No Meds Allergies Allergy/AdvReac Type Severity Reaction Status Date / Time latex [LATEX] Allergy Intermediate SWELLING Verified 07/10/23 11:35 hazelnut Allergy Unknown ANAPHYLAXIS Verified 07/10/23 11:35 prednisone AdvReac Unknown Unknown Verified 07/10/23 11:35 sulfite AdvReac Unknown Nasal Verified 07/10/23 11:35 swelling Active Medications: Current Medications Acetaminophen (Acetaminophen 325 Mg Tablet) 650 mg PO Q6H PRN PRN Reason: Pain, Mild (Pain Scale 1-3) Amlodipine Besylate (Amlodipine Besylate 2.5 Mg Tablet) 2.5 mg PO DAILY [facility]; Protocol Last Admin: 07/12/23 06:57 Dose: 2.5 mg Dicyclomine HCl (Dicyclomine Hcl 10 Mg Capsule) 20 mg PO BID [facility] Last Admin: 07/12/23 06:57 Dose: 20 mg Morphine Sulfate (Morphine Sulfate 4 Mg/Ml Cartridge) 4 mg IVPUSH Q4H PRN; Protocol PRN Reason: Pain, Severe (Pain Scale 7-10) Omeprazole (Omeprazole 40 Mg Capsule.Dr) 40 mg PO DAILY@0630 [facility] Last Admin: 07/12/23 05:54 Dose: 40 mg Ondansetron HCl (Ondansetron Hcl 4 Mg/2 Ml Vial) 4 mg IVPUSH Q8H PRN PRN Reason: Nausea and Vomiting Last Admin: 07/11/23 17:32 Dose: 4 mg Oxycodone HCl (Oxycodone Hcl Immed Release 5 Mg Tablet) 5 mg PO Q4H PRN PRN Reason: Pain, Moderate(Pain Scale 4-6) Last Admin: 07/12/23 06:57 Dose: 5 mg Sodium Chloride (0.9 % Sodium Chloride Flush 3 Ml Syringe) 3 ml IVFLUSH QSHIFT [facility] Last Admin: 07/12/23 06:59 Dose: 3 ml Valsartan (Valsartan 40 Mg Tablet) 40 mg PO DAILY [facility] Last Admin: 07/12/23 06:57 Dose: 40 mg Home Medications Medication Instructions Recorded Confirmed Last Taken Type calcium citrate 500 mg (2,376 mg) 500 mg PO DAILY PRN gi upset 05/18/23 07/10/23 05/29/23 History effervescent tablet atorvastatin 10 mg tablet 10 mg PO BEDTIME 07/10/23 07/10/23 Unknown History dicyclomine 10 mg capsule 20 mg PO BID 07/10/23 07/10/23 Unknown History sennosides 8.6 mg tablet (senna) 8.6 mg PO BEDTIME PRN constipation 07/10/23 07/10/23 Unknown History Exam Height,Weight and Vital Signs: Height 5 ft 8 in Weight 78.9 kg Last Vital Signs Temp 98.8 F 07/12/23 14:17 Pulse 70 07/12/23 14:17 Resp 16 07/12/23 14:17 BP 149/91 H 07/12/23 14:17 Pulse Ox 99 07/12/23 14:17 O2 Del Method Room Air 07/12/23 14:17 Pertinent Lab Results Pertinent Lab Results: Laboratory Tests 07/10/23 07/10/23 07/11/23 12:01 15:45 04:27 WBC 7.8 6.1 RBC 5.42 4.97 Hgb 17.4 H 16.1 H Hct 51.8 H 47.5 H MCV 95.6 95.6 MCH 32.1 32.4 MCHC 33.6 33.9 RDW 14.9 14.8 Plt Count 141 L 113 L MPV 11.2 11.7 Immature Gran % (Auto) 0.4 0.3 Neut % (Auto) 77.8 H 70.2 Lymph % (Auto) 14.3 L 19.5 L [place] % (Auto) 6.8 9.0 Eos % (Auto) 0.3 0.7 Baso % (Auto) 0.4 0.3 Lymph # (Auto) 1.1 L 1.2 [place] # (Auto) 0.5 0.6 Eos # (Auto) 0.0 0.0 Baso # (Auto) 0.0 0.0 Abs Immat Gran (auto) 0.03 0.02 Absolute Neuts (auto) 6.1 4.3 Absolute Nucleated RBC 0.000 0.000 Nucleated RBC % (auto) 0.0 0.0 PT 12.4 D INR 1.0 Sodium 140 139 Potassium 4.4 4.0 Chloride 100 104 Carbon Dioxide 27 24 Anion Gap 17 15 BUN 24 H 20 H Creatinine 1.20 0.82 Estim Creat Clear Calc 40.8 59.7 Estimated GFR 43 > 60 Random Glucose 106 83 Calcium 10.4 H D 9.6 D Magnesium 1.7 Total Bilirubin 1.1 H 1.3 H AST 46 H 47 H ALT 42 H 37 H Alkaline Phosphatase 335 H 301 H Troponin I High Sens 12.3 Total Protein 7.0 6.2 L Albumin 4.1 3.6 Urine Color Yellow Urine Appearance Clear Urine pH 6.5 Ur Specific [place] >= 1.030 H Urine Protein Negative Urine Glucose (UA) Negative Urine Ketones 15 Urine Blood Trace H Urine Nitrite Negative Ur Leukocyte Esterase Negative Urine RBC 3-5 H Urine WBC 0-5 Ur Squamous Epith Cells 3-5 Urine Bacteria None Seen Hyaline Casts 0-2 Influenza Type A (PCR) NEGATIVE Influenza Type B (PCR) NEGATIVE RSV RNA Qual (PCR) NEGATIVE SARS-CoV-2 RNA (RT-PCR) NEGATIVE 07/12/23 06:06 WBC 6.5 RBC 5.09 Hgb 16.4 H Hct 48.2 H MCV 94.7 MCH 32.2 MCHC 34.0 RDW 14.7 Plt Count 119 L MPV 11.5 Immature Gran % (Auto) 0.3 Neut % (Auto) 71.9 Lymph % (Auto) 19.3 L [place] % (Auto) 7.7 Eos % (Auto) 0.5 Baso % (Auto) 0.3 Lymph # (Auto) 1.3 [place] # (Auto) 0.5 Eos # (Auto) 0.0 Baso # (Auto) 0.0 Abs Immat Gran (auto) 0.02 Absolute Neuts (auto) 4.7 Absolute Nucleated RBC 0.000 Nucleated RBC % (auto) 0.0 PT 11.2 INR 0.9 Sodium 139 Potassium 3.6 Chloride 101 Carbon Dioxide 25 Anion Gap 17 BUN 19 H Creatinine 0.86 Estim Creat Clear Calc 55.6 Estimated GFR > 60 Random Glucose 97 Calcium 9.6 Magnesium Total Bilirubin 0.9 AST 50 H ALT 44 H Alkaline Phosphatase 322 H Troponin I High Sens Total Protein 6.4 L Albumin 3.7 Urine Color Urine Appearance Urine pH Ur Specific [place] Urine Protein Urine Glucose (UA) Urine Ketones Urine Blood Urine Nitrite Ur Leukocyte Esterase Urine RBC Urine WBC Ur Squamous Epith Cells Urine Bacteria Hyaline Casts Influenza Type A (PCR) Influenza Type B (PCR) RSV RNA Qual (PCR) SARS-CoV-2 RNA (RT-PCR) Airway Mallampati Class: II TM Dist: >3cm Neck ROM: Full Partial: Upper Heart: rrr Lungs: cta Assessment and Plan Assessment Anesthesia Assessment: Anesthesia Plan Discussed and Chart Reviewed Final Anesthetic Review Family History of Problems with Anesthesia: No History of Problems with Anesthesia: No NPO: Yes ASA Class: III Final Preanesthetic Review: No Changes in Pt Med Stat, Meds/Allgs Chart Reviewed and Consent Obtained/Reviewed Patient Risk: Intermediate Procedure Risk: Intermediate Anesthetic Plan Anesthetic Plan: MAC: Disposition: Standard PACU
--- NOTE | 2023-07-12 14:40 | W.PM.OPN ---
Operative Note Operative Note Date of Service: 07/12/23 Narrative: Operative Information Procedure Description: EGD, Colonoscopy Indication: liver mass Anesthesia: MAC FLEXIBLE TRANSORAL UPPER GASTROINTESTINAL ENDOSCOPY AND COLONOSCOPY PROCEDURE NOTE UPPER ENDOSCOPY Consent: Indications for the procedure and potential complications of bleeding, perforation, reaction to medications and missed diagnosis were discussed with the patient and informed consent was obtained. Instrument: Olympus GIF H 190 J mid size upper endoscope Monitoring: Vital signs and clinical assessment, continuous EKG monitoring, Pulse oximetry, Carbon Dioxide monitoring and blood pressure monitoring were done throughout the procedure. Procedure: The patient was placed in the left lateral decubitis position and pre-procedure medications were administered and a bite block was placed. The endoscope was inserted into the mouth and advanced under direct vision to the third part of duodenum. A careful inspection was made as the upper endoscope was withdrawn including a retroflexed examination of the proximal stomach; Findings and interventions are described below. Findings: Larynx:normal Esophagus: GE junction at 38 cm, diaphragm hiatus at 40 cm, consistent with 2 cm sliding hiatal hernia, mild esophagitis and slightly irregular z line Stomach: Normal mucosa with scattered fundic gland polyps. Grade 2 flap valve on retroflexed examination of the cardia. Duodenum: Normal bulb and descending duodenum, Intervention: none COLONOSCOPY Instrument: Olympus variable stiffness pediatric scope 190L Colonoscopy Monitoring: Vital signs and clinical assessment, continuous EKG monitoring, Pulse oximetry, Carbon Dioxide monitoring and blood pressure monitoring were done throughout the procedure. Colon withdrawal time was 9 minutes. Procedure: The patient was placed in the left lateral decubitis position and pre-procedure medications were administered. After a digital rectal examination of the ano-rectum, the video colonoscope was inserted into the rectum and advanced through the colon to the cecum/TI. The colonoscope was slowly withdrawn in a retrograde panoramic fashion and the colon mucosa was carefully examined including a retroflexed view of the rectum. Findings and interventions are described below. Procedure Difficulty: difficult Findings: Terminal Ileum-normal Cecum:normal Ascending Colon: severe diverticulosis w/ mucosal hypertrophy and luminal narrowing, no mass seen--6-8 mm sessiel polyp removed with cold forceps Transverse Colon -normal Descending Colon: severe diverticulosis w/ mucosal hypertrophy Sigmoid Colon: severe diverticulosis w/ mucosal hypertrophy Rectum: Retroflexion with small internal hemorrhoids, grade I Anorectum - normal Colon preparation: [place] Bowel Preparation Scale Right colon; 2 Transverse colon: 2 Left colon; 2 (0 = Unprepared colon segment with mucosa not seen due to solid stool that cannot be cleared. 1 = Portion of mucosa of the colon segment seen, but other areas of the colon segment not well seen due to staining, residual stool and/or opaque liquid. 2 = Minor amount of residual staining, small fragments of stool and/or opaque liquid, but mucosa of colon segment seen well. 3 = Entire mucosa of colon segment seen well with no residual staining, small fragments of stool or opaque liquid) Impression and Post Procedure Diagnosis: Endoscopy Findings: hiatal hernia esophagitis fundic gland polyps Colonoscopy Findings: diverticulosis colon polyp internal hemorrhoids Plan: No mass found in colon Above findings were reviewed with the patient and relevant handouts were provided if indicated.
[2023-07-12] MEDS: ondansetron HCL 4 MG/2 ML VIAL IVPUSH (15:57)
[2023-07-12] MEDS: Haloperidol Lactate 5 MG/ML VIAL 1 MG IVPUSH (16:38)
[2023-07-13 04:00] VITALS: BP 163/87; PULSE 58; RESP 18; TEMP 36.2; O2SAT 94
[2023-07-13] MEDS: Omeprazole 40 MG CAPSULE.DR PO (05:01)
[2023-07-13 06:31] LABS: MANUAL DIFF FLAG NO
[2023-07-13 06:40] LABS: Basophils Percent Auto 0.5 % (0-2); Eosinophils Percent Auto 0.5 % (0-4); Hematocrit 46.1 % (37.0-47.0); Hemoglobin 15.5 g/dl (12.0-16.0); Imm Gran Abs Auto 0.03 X10*3/uL (0.00-0.03); Imm Gran Pct Auto 0.5 % (0.0-0.4); Lymphocytes Absolute Auto 0.9 X10*3/uL (1.2-4.9); Lymphocytes Percent Auto 17.1 % (20-40); Mean Corpuscular HGB Conc 33.6 g/dl (31.0-35.0); Mean Corpuscular Hemoglobin 31.8 pg (27.0-33.0); Mean Corpuscular Volume 94.7 fL (80.0-98.0); Mean Platelet Volume 11.6 fL (9.4-12.3); Monocytes Absolute Auto 0.5 X10*3/uL (0.1-1.2); Monocytes Percent Auto 8.7 % (2-11); Neutrophils Percent Auto 72.7 % (45-73); Platelet Count 109 X10*3/uL (160-400); Red Blood Count 4.87 X10*6/uL (4.20-5.50); Red Cell Distribution Width 14.6 % (11.0-16.0); White Blood Count 5.5 X10*3/uL (4.8-10.8)
[2023-07-13 06:59] LABS: Alanine Aminotransferase 34 U/L (0-31); Albumin Level 3.4 g/dL (3.5-5.0); Alkaline Phosphatase 291 U/L (39-117); Anion Gap 16 (12-20); Aspartate Amino Transferase 40 U/L (5-31); Blood Urea Nitrogen 15 mg/dL (9-16); Calcium 9.2 mg/dL (8.4-10.2); Carbon Dioxide 25 mmol/L (22-29); Chloride 104 mmol/L (96-108); Creatinine Clr Calc Pharmacy 67.4; Estimated Glomerular Filt Rate > 60; Glucose Random 83 mg/dL (60-115); Potassium 3.6 mmol/L (3.3-5.1); Sodium 141 mmol/L (135-145); Total Protein 5.8 g/dL (6.5-8.0)
[2023-07-13 07:05] VITALS: BP 133/80; PULSE 68; RESP 18; TEMP 36.4; O2SAT 96
[2023-07-13 07:13] LABS: Bilirubin Total 1.1 mg/dL (0.0-1.0)
[2023-07-13] MEDS: Dicyclomine HCl 10 MG CAPSULE 20 MG PO (09:22)
[2023-07-13] MEDS: Valsartan 40 MG TABLET PO (09:23)
[2023-07-13] MEDS: amLODIPine Besylate 2.5 MG TABLET PO (09:23)
[2023-07-13 10:05] VITALS: O2SAT 96
--- NOTE | 2023-07-13 12:03 | PM.DS ---
DS: Providers Provider Date of Service: 07/13/23 Date of admission: 07/10/23 18:16 Date of discharge: 07/13/23 Primary care physician: LA[place] WadeP- Consults: 07/10/23 18:21 Consult to Gastroenterology Routine Consulting Provider: Tavia Dinh Reason for consultation: liver mass Has provider been notified: No Consult to Hematology / Oncology Routine Consulting Provider: Edwige Li Reason for consultation: Liver mass Has provider been notified: No Attending physician on discharge: Paul Pedroza Discharging clinician: Sarina White DS: Diagnosis Discharge Diagnosis (1) Abnormal PET scan of colon: Status: Acute DS: Summary Hospital Course Hospital Course: From H&P on the day of admission 83-year-old female with new diagnosis of likely liver mass question metastasis versus HCC scheduled for outpatient colonoscopy tomorrow. States she did not feel she could complete the prep secondary to generalized malaise and lower abdominal discomfort with background nausea. She has been off her Eliquis times 48 hours presumably for colonoscopy. States she called Dr. Reed office and they instructed her to come to the emergency room. CT scan in ER demonstrated enlarging hepatic mass with new small subcapsular mass. Increasing biliary dilatation. Currently her pain is managed; she will be admitted for ongoing pain control and further workup of this hepatic mass Liver carcinoma Initial biopsy on 05/29 was non diagnostic. Repeat biopsy done at [facility] on 06/16 by revealed HCC. PET scan on 06/26 which raised concern for a lesion in the transverse colon. was scheduled for outpatient colonoscopy but was unable to complete the prep. She was admitted to the hospital and was able to complete [facility] prep. She underwent EGD and colonoscopy on 07/11. EGD with hiatal hernia, esophagitis, fundic gland polyps. colonoscopy with severe diverticulosis with mucosal hypertrophy of the ascending colon no mass seen. 6-8 mm sessile polyp removed with cold forceps. Descending colon and sigmoid colon with severe diverticulosis. No mass was found in the colon. Bili is normal and no extrinsic compression of the CBD at this time, would not benefit from stenting/ERCP per GI. H/H has remained stable. Tolerating regular diet, no abdominal pain. Plan for outpatient follow up with Dr. Austin for further care. History of pulmonary embolus/recurrent DVTs Eliquis held 48 hours for procedure and ok to resume on day of discharge per GI. Thrombocytopenia. chronic, outpatient followup Time Attestation Total time managing care of this patient today: 38 mintues. Discharge Coordination Time (in mins): 38 Quality: Safe Use of Opioids Does Pt have an Active Cancer Diagnosis on the Problem List?: Yes Opioid Measure Date for [facility] Report: 06/13/23 Opioid Measure Time for [facility] Report: 13:56 Quality: Stroke Does the patient have a stroke diagnosis?: No Physical Exam Vital Signs: Vital Signs: Last Vital Signs Temp 97.6 F 07/13/23 07:05 Pulse 68 07/13/23 07:05 Resp 18 07/13/23 07:05 BP 133/80 07/13/23 07:05 Pulse Ox 96 07/13/23 10:05 O2 Del Method Room Air 07/13/23 10:05 BMI result Body Mass Index 26.4 Const: General: cooperative, comfortable, no acute distress, alert and awake Nutritional Appearance: average body habitus Orientation/consciousness: patient oriented x3 Resp: Effort & Inspection: normal respiratory effort, able to speak in complete sentences, no respiratory distress and no use of accessory muscles Cardio: Rate: regular rate GI: Palpation (GI): Soft to palpation Neuro: General: patient oriented x3, moves all extremities and CN's II-XI intact bilaterally Extrem: General: Yes no pedal edema DS: Data Data Completed and Pending Pending studies at discharge: Pending at discharge 07/12/23 15:09 Surgical [PTH] Routine Labs on day of discharge: Laboratory Results - last 24 hr 07/13/23 05:40 WBC 5.5 RBC 4.87 Hgb 15.5 Hct 46.1 MCV 94.7 MCH 31.8 MCHC 33.6 RDW 14.6 Plt Count 109 L MPV 11.6 Immature Gran % (Auto) 0.5 H Neut % (Auto) 72.7 Lymph % (Auto) 17.1 L [place] % (Auto) 8.7 Eos % (Auto) 0.5 Baso % (Auto) 0.5 Lymph # (Auto) 0.9 L [place] # (Auto) 0.5 Eos # (Auto) 0.0 Baso # (Auto) 0.0 Abs Immat Gran (auto) 0.03 Absolute Neuts (auto) 4.0 Absolute Nucleated RBC 0.000 Nucleated RBC % (auto) 0.0 Sodium 141 Potassium 3.6 Chloride 104 Carbon Dioxide 25 Anion Gap 16 BUN 15 Creatinine 0.71 Estim Creat Clear Calc 67.4 Estimated GFR > 60 Random Glucose 83 Calcium 9.2 Total Bilirubin 1.1 H AST 40 H ALT 34 H Alkaline Phosphatase 291 H Total Protein 5.8 L Albumin 3.4 L Discharge Plan Discharge Anticipated Discharge Date/Time: 07/13/23 12:18 Patient Disposition: Home, Self-Care Discharge Diagnosis: abdominal pain Hepatocellular carcinoma History of pulmonary embolus/recurrent DVTs Referrals: Santos Reyez FNP-BC [Primary Care Provider] - 1 Week Edwige Li MD [Physician] - 1 Week Discharge Medications: Continued irbesartan 75 mg tablet 75 mg PO DAILY 90 Days Qty: 90 2RF cholecalciferol (vitamin D3) 50 mcg (2,000 unit) capsule 50 mcg PO DAILY Qty: 90 3RF amlodipine 2.5 mg tablet 2.5 mg PO DAILY Qty: 90 1RF bisacodyl [Dulcolax (bisacodyl)] 5 mg tablet,delayed release (DR/EC) 20 mg PO ONCE 1 Days Qty: 4 0RF Rx Instructions: take at noon the day before colonoscopy polyethylene glycol 3350 [Miralax] 17 gram/dose powder 238 g PO ONCE 1 Days Qty: 238 0RF Rx Instructions: Take as directed by mouth the day before your procedure. Eliquis 5 mg tablet 5 mg PO BID 90 Days Qty: 180 3RF calcium citrate 500 mg Tablet, Effervescent 500 mg PO DAILY PRN (Reason: gi upset) omeprazole 40 mg capsule,delayed release(DR/EC) 40 mg PO DAILY Qty: 90 4RF sennosides [senna] 8.6 mg tablet 8.6 mg PO BEDTIME PRN (Reason: constipation) atorvastatin 10 mg tablet 10 mg PO BEDTIME dicyclomine 10 mg capsule 20 mg PO BID No Action (DME) commode Kit See Rx Instructions .ROUTE .MEDSUPPLY Qty: 1 0RF Rx Instructions: As directed Discharge Orders: Discharge Order (Routine); Ordered 07/13/23 Ordered By: Sarina White Activity on Discharge: As tolerated Stand Alone Forms: Patient Portal Discharge page Care Plan Goals: see below Health Concerns: Hepatocellular carcinoma Abdominal pain Plan of Treatment: No colon mass seen on colonoscopy colon polyp - GI will call with pathology results Recommend outpatient follow-up with Dr. Austin at [facility] Assessment: see discharge summary
[2023-07-13] MEDS: Apixaban 5 MG TABLET PO (14:04)
--- NOTE | 2023-07-13 14:34 | MHC.CM.PN ---
Emmanuel lizama'd home self care, private transport.
--- NOTE | 2023-07-13 15:06 | HO.POSTANES ---
Post Anesthesia Evaluation Post Anesthesia Evaluation Date of Service: 07/13/23 Vital Signs: Vital Signs Temp Pulse Resp BP Pulse Ox O2 Del Method 07/13/23 10:05 96 Room Air 07/13/23 07:05 97.6 F 68 18 133/80 96 Room Air 07/13/23 04:00 97.1 F 58 18 163/87 H 94 Room Air Anesthesia: Monitored Mental Status: Awake Pain Control: Satisfactory Nausea/Vomiting: None Hydration: Adequate Anesthesia-Related Issues: No Anes. Related Issues
== END 2023-07-13 14:30 | disposition home or self-care (01) | DRG 437 ==
LOC: HO.ED 14:36 → HO.EDOVER 18:31 → HO.S3 07-11 19:37
PROVIDERS: Internal Medicine Gastroenterology; Physician Assistant Medical; Admitting Provider Hospitalist; Emergency Provider Emergency Medicine; PCP Nurse Practitioner Family; Visit Provider Physician Assistant Medical
PROC: 0DJ08ZZ Inspection of Upper Intestinal Tract, Via Natural or Artificial Opening Endoscopic (ICD-10-PCS; principal; 2023-07-12 14:50)
DX: C22.0 Liver cell carcinoma (principal); E78.00 Pure hypercholesterolemia, unspecified; R62.7 Adult failure to thrive; K64.0 First degree hemorrhoids; K57.30 Diverticulosis of large intestine without perforation or abscess without bleeding; K63.89 Other specified diseases of intestine; K63.5 Polyp of colon; K44.9 Diaphragmatic hernia without obstruction or gangrene; K20.90 Esophagitis, unspecified without bleeding; K31.7 Polyp of stomach and duodenum; Z68.26 Body mass index [BMI] 26.0-26.9, adult; Z20.822 Contact with and (suspected) exposure to COVID-19; Z87.891 Personal history of nicotine dependence; Z86.711 Personal history of pulmonary embolism; Z86.718 Personal history of other venous thrombosis and embolism; Z79.01 Long term (current) use of anticoagulants; Z79.899 Other long term (current) drug therapy
CPT/HCPCS: 0241U; 36415; 71045; 74018; 74177; 80053; 81001; 83735; 84484; 85025; 85610; 88305; 93005; 99285; J1630; J2405; J2550; Q9967

== ENCOUNTER → 2023-07-10 11:37 | Outpatient (BNV) | payer MEDICARE, SELFPAY | PROVIDERS: Admitting Provider Hospitalist; Emergency Provider Emergency Medicine; PCP Nurse Practitioner Family; Visit Provider Internal Medicine | DX: R10.9 Unspecified abdominal pain (principal) | CPT/HCPCS: 93010 ==

== ENCOUNTER → 2023-07-10 18:16 | Outpatient (BNV) | payer MEDICARE, SELFPAY | PROVIDERS: Admitting Provider Hospitalist; Emergency Provider Emergency Medicine; PCP Nurse Practitioner Family; Visit Provider Hospitalist | DX: R94.8 Abnormal results of function studies of other organs and systems (principal) | CPT/HCPCS: 99223; 99232; 99239 ==

== ENCOUNTER → 2023-07-10 18:16 | Outpatient (BNV) | payer MEDICARE, SELFPAY | PROVIDERS: Admitting Provider Hospitalist; Emergency Provider Emergency Medicine; PCP Nurse Practitioner Family; Visit Provider Internal Medicine | DX: R94.8 Abnormal results of function studies of other organs and systems (principal); R16.0 Hepatomegaly, not elsewhere classified; K31.7 Polyp of stomach and duodenum; K20.90 Esophagitis, unspecified without bleeding; D12.3 Benign neoplasm of transverse colon; K57.30 Diverticulosis of large intestine without perforation or abscess without bleeding; K64.0 First degree hemorrhoids | CPT/HCPCS: 43235; 45380; 99223; 99233 ==

== ENCOUNTER → 2023-07-10 18:16 | Outpatient (BNV) | payer MEDICARE, SELFPAY | PROVIDERS: Admitting Provider Hospitalist; Emergency Provider Emergency Medicine; PCP Nurse Practitioner Family; Visit Provider Internal Medicine Medical Oncology | DX: C22.0 Liver cell carcinoma (principal) | CPT/HCPCS: 99222 ==

== ENCOUNTER 2023-07-17 14:49 | Outpatient (AMB) | payer MEDICARE, SELFPAY ==
--- NOTE | 2023-07-17 14:53 | MHC.PC.OV ---
Vital Signs 07/17/23 14:56 Height 5 ft 8 in Weight 171 lb BMI 26.0 BP 122/70 Blood Pressure Location Lt brachial Position Sitting Pulse 78 Pulse Source Pulse Oximeter Pulse Oximetry (%) 98 Oxygen Delivery Method Room Air Intake Visit Reasons: discuss colonoscopy Intake Note: pt is here for follow up due to new diagnois of liver cancer Refrigeration Lead Required: No Allergies latex [LATEX] Allergy (Intermediate, Verified 07/17/23 17:06) SWELLING hazelnut Allergy (Unknown, Verified 07/17/23 17:06) ANAPHYLAXIS prednisone Adverse Reaction (Unknown, Verified 07/17/23 17:06) Unknown sulfite Adverse Reaction (Unknown, Verified 07/17/23 17:06) Nasal swelling Medication List - Last Reconciled 07/17/23 by ISHAN Luu- amlodipine 2.5 mg PO DAILY apixaban (Eliquis) 5 mg PO BID 90 days atorvastatin 10 mg PO BEDTIME bisacodyl (Dulcolax (bisacodyl)) 20 mg (4 x 5 mg) PO ONCE 1 day calcium citrate 500 mg PO DAILY PRN cholecalciferol (vitamin D3) 50 mcg PO DAILY commode As directed dicyclomine 20 mg PO BID dronabinol (Marinol) 2.5 mg PO BID irbesartan 75 mg PO DAILY 90 days omeprazole 40 mg PO DAILY ondansetron 8 mg PO Q8H Tobacco use date assessed: 07/17/23 Fall risk assessment: No Falls in past year Last assessed Fall Risk: 07/17/23 Dental Screening Dental Screen Date: 07/17/23 Did you have a dental visit in the last 12 months?: Yes Did you have a dental problem in the last 6 months where you did not have access to dental care?: No Was dental information given to patient?: Patient has dentist HPI discuss colonoscopy HPI Details Pt had a previous abdomen MRI which showed 5.5 x 7 cm lobulated heterogeneous mass in the anterior segment of the right lobe of the liver involving some of medial segment of the left lobe and anterior segment of the right lobe. Appearance is concerning for neoplasm. Liver biopsy showed carcinoma. Pt had a PET scan, see results. Pt had a colonoscopy which did not show any masses. Pt is following up with oncology. She is awaiting treatment that starts in August. Pt reports significant weight loss. She reports having little to no appetite. She is able to tolerate water. Pt reports some nausea as well. Pt is taking zofran every 8 hours which she started today. Encouraged pt to continue taking this regularly. Will speak with Dr. Li regarding pt's symptoms. Denies fever, chills, and dizziness. [facility] Medical History Liver carcinoma History of pulmonary embolus (PE) Arthritis Elevated cholesterol DVT (deep venous thrombosis) HTN (hypertension) Surgical History History of colonoscopy History of hysteroscopy (~2013) Hx of cystoscopy (~2000) Hx of tonsillectomy History of phacoemulsification of cataract with intraocular lens implantation Hx of cholecystectomy History of total right knee replacement (TKR) Family History Father No problems noted. Mother No problems noted. Other No family history of cancer Social History Household Members: Spouse Housing: Condominium Are you a primary out of school hours care worker to a significant other at home: No Do you presently have visiting nurse or other home services: No Alcohol intake: never Comment: PATIENT INDICATED UNSTEADY ON FEET AND WILL REQUIRE ACCOMPANY HER Patient Tobacco Use Status: Former Tobacco user Quit Date: 2004 Years Smoked: over 20 years ago e-Cigarette/Vaping Use: Never Used Second Hand Smoke Exposure: No service: No Current occupational status: retired Sexual orientation: Straight/Heterosexual Gender identity: Female Cognitive needs: No Hearing needs: No Vision needs: No Questionnaire Thrive Questionnaire Date Thrive assessed: 07/11/23 TIA-7 AMB Questionnaire TIA-7 Date TIA - 7 assessed: 10/04/21 Source: Developed by Drs. Luis Angel Ny, Pamela Celestin, Sudeep Jennings and colleagues, with an educational gianna from [employer]. Review of Systems Const Reports as per HPI Physical exam (Primary Care) Vital Signs: Last Vital Signs Pulse 78 07/17/23 14:56 BP 122/70 07/17/23 14:56 Pulse Ox 98 07/17/23 14:56 Oxygen Delivery Method Room Air 07/17/23 14:56 BMI result Body Mass Index 26.0 Tobacco/Smoking Status: Tobacco use Status Tobacco use date assessed 07/17/23 07/17/23 14:58 Patient Tobacco Use Status Former Tobacco user 07/17/23 14:58 e-Cigarette/Vaping Use Never Used 07/17/23 14:58 Thrive Assessment: Date of Thrive Assessment Date Thrive assessed 07/11/23 07/17/23 14:58 Const Other: weight loss noted General: cooperative Orientation/consciousness: patient oriented x3 Resp Effort & Inspection: normal respiratory effort Auscultation: clear to auscultation bilaterally Cardio Rate: regular rate Rhythm: regular rhythm Heart sounds: S1 normal heart sound present and S2 normal heart sound present GI Palpation (GI): Tenderness to palpation present (GI) Neuro General: patient oriented x3 Psych Appearance: grossly normal Mental Status: mental status grossly normal Speech and movement: Normal speech and movement present Affect: normal affect Attitude: cooperative Thought process: Normal thought process present Thought content: Normal thought content present Insight: Good insight present (Psych) Judgement: Good judgement present (Psych) Assessment and Plan Assessment & Plan (1) HCC (hepatocellular carcinoma): Code(s): C22.0 - Liver cell carcinoma Plan: following up with oncology/GI/liver specialist (2) Poor appetite: Code(s): R63.0 - Anorexia Plan: pt tolerating sips of water, poor appetite, encouraged use of zofran and i will speak with her oncologist (3) Weight loss: Code(s): R63.4 - Abnormal weight loss (4) Nausea: Code(s): R11.0 - Nausea Plan: as above Plan The patient agreed to the use of a medical laboratory technologist for this encounter. Scribed for ISHAN Colvin-BC by Leeann Pan medical laboratory technologist, on 07/17/2023 at 15:15 EST. Coding Level of Care Code Est Pt Level 3 (43879) Diagnoses HCC (hepatocellular carcinoma) C22.0 Poor appetite R63.0 Weight loss R63.4 Nausea R11.0
[2023-07-17 14:56] VITALS: BP 122/70; PULSE 78; O2SAT 98; BMI 26.0
== END 2023-07-17 15:58 | disposition home or self-care (01) ==
PROVIDERS: PCP Nurse Practitioner Family; Visit Provider Nurse Practitioner Family
DX: C22.0 Liver cell carcinoma (principal); R63.0 Anorexia; R63.4 Abnormal weight loss; R11.0 Nausea
CPT/HCPCS: 99213

== ENCOUNTER 2023-07-24 14:13 | Emergency (ER) | payer MEDICARE, SELFPAY ==
--- NOTE | ~2023-07-24 | XR_ITS ---
EXAMINATION: XR CHEST CLINICAL INFORMATION: Weakness. COMPARISON: Chest radiograph 07/12/2023. TECHNIQUE: Frontal view of the chest was obtained. FINDINGS: Stable appearance of the cardiomediastinal silhouette. Unchanged ectasia of the thoracic aorta with associated vascular calcifications. No focal consolidation, pleural effusion or pneumothorax. Stable mildly increased interstitial markings. No acute issues findings. XR/XR chest 1V IMPRESSION: No acute cardiopulmonary findings.
--- NOTE | ~2023-07-24 | CT_ITS ---
EXAMINATION: CT HEAD WITHOUT CONTRAST CLINICAL INFORMATION: Head injury COMPARISON: None. TECHNIQUE: Contiguous axial imaging was performed from the skull base to vertex without intravenous administration of contrast. Coronal and sagittal reformatted images are performed at the CT scanner. [This CT examination was performed using dose optimization techniques as appropriate, variously including the following: *Automated exposure control *Adjustment of mA and/or kV according to patient size (this includes techniques or standardized protocols for targeted exams where dose is matched to indication/reason for exam; i.e. extremities or head) *Use of iterative reconstruction technique] DLP: 605 mGy-cm. FINDINGS: There is no evidence of acute intracranial hemorrhage or territorial infarction. No abnormal mass-effect or midline shift is seen. Laura to white matter differentiation is well preserved. No extra-axial fluid collections are identified. There is generalized global volume loss. There is moderate prominence of the ventricles and the sulci . There is moderate hypodensity of the periventricular white matter due to chronic small vessel ischemic disease. There are vascular calcifications of the internal carotid arteries bilaterally. There is no osseous abnormality. The mastoid air cells and visualized portions of the paranasal sinuses are well-aerated. CT/CT head/brain wo IV con IMPRESSION: No acute intracranial pathology.
[2023-07-24 14:38] VITALS: BP 134/79; PULSE 60; RESP 14; TEMP 36.4; O2SAT 92
[2023-07-24 14:50] VITALS: BP 120/74; PULSE 64; RESP 18; TEMP 36.4; BMI 26.9
--- NOTE | 2023-07-24 15:32 | ED.GENADULT ---
HPI - General Adult General Chief complaint: General Medical Stated complaint: from oncology Time Seen by Provider: 07/24/23 15:00 History of Present Illness HPI narrative: The patient is an 83-year-old female who was recently diagnosed with liver cancer. According to the family this is not metastatic. Today she received her first dose of immunotherapy through Dr. Li's office here at [facility]. This is the 1st treatment she is received for this cancer. Apparently the patient has been getting weaker over the last couple of weeks. She has been eating very little. She has had little interest in food and seems to have chronic nausea. She also has chronic abdominal pain for which he has been taking round the clock oxycodone (her has been giving her a dose every 6 hours regardless of symptoms). Her ability to walk on her own has diminished and she has been doing very little. Last night she fell getting out of bed. She struck her head on the floor. She did not strike it very hard and there was no loss of consciousness. Has no significant headache. She has no neck. There has been no fever, sweats, chills. No particular chest pain. She has had chronic abdominal pain and chronic nausea. Family says that she has been taking very little by mouth other than water. Related Data Home Medications Medication Instructions Recorded Confirmed calcium citrate 500 mg (2,376 mg) 500 mg PO DAILY PRN gi upset 05/18/23 07/24/23 effervescent tablet atorvastatin 10 mg tablet 10 mg PO BEDTIME 07/10/23 07/24/23 dicyclomine 10 mg capsule 20 mg PO BID 07/10/23 07/24/23 Previous Rx's Medication Instructions Recorded commode #1 ea 07/31/20 cholecalciferol (vitamin D3) 50 50 mcg PO DAILY #90 caps 12/22/22 mcg (2,000 unit) capsule apixaban 5 mg tablet (Eliquis) 5 mg PO BID 90 days #180 tabs 04/04/23 amlodipine 2.5 mg tablet 2.5 mg PO DAILY #90 tabs 04/19/23 omeprazole 40 mg capsule,delayed 40 mg PO DAILY #90 caps 06/23/23 release bisacodyl 5 mg tablet,delayed 20 mg (4 x 5 mg) PO ONCE 1 day #4 07/06/23 release (Dulcolax (bisacodyl)) tabs ondansetron 8 mg disintegrating 8 mg PO Q8H #50 tabs 07/13/23 tablet irbesartan 75 mg tablet 75 mg PO DAILY 90 days #90 tabs 07/16/23 dronabinol 2.5 mg capsule (Marinol) 2.5 mg PO BID #60 caps 07/17/23 oxycodone 5 mg tablet 5 mg PO Q6H PRN Breakthrough Pain, 07/20/23 Moderate #60 tabs prochlorperazine maleate 10 mg 10 mg PO Q6H PRN Nausea And 07/20/23 tablet (Compazine) Vomiting #40 tabs Allergies Allergy/AdvReac Type Severity Reaction Status Date / Time latex [LATEX] Allergy Intermediate SWELLING Verified 07/17/23 17:06 hazelnut Allergy Unknown ANAPHYLAXIS Verified 07/17/23 17:06 prednisone AdvReac Unknown Unknown Verified 07/17/23 17:06 sulfite AdvReac Unknown Nasal Verified 07/17/23 17:06 swelling Review of Systems Review of Systems: Yes all other systems are reviewed and are negative [facility] Past Medical History Medical History Liver carcinoma History of pulmonary embolus (PE) Arthritis Elevated cholesterol DVT (deep venous thrombosis) HTN (hypertension) Surgical History History of colonoscopy History of hysteroscopy (~2013) Hx of cystoscopy (~2000) Hx of tonsillectomy History of phacoemulsification of cataract with intraocular lens implantation Hx of cholecystectomy History of total right knee replacement (TKR) Family History Family History Father No problems noted. Mother No problems noted. Other No family history of cancer Social History Social History Household Members: Spouse Housing: Condominium Are you a primary health care recruiter to a significant other at home: No Do you presently have visiting nurse or other home services: No Alcohol intake: never Comment: PATIENT INDICATED UNSTEADY ON FEET AND WILL REQUIRE ACCOMPANY HER Patient Tobacco Use Status: Former Tobacco user Quit Date: 2003 Years Smoked: over 20 years ago e-Cigarette/Vaping Use: Never Used Second Hand Smoke Exposure: No service: No Current occupational status: retired Sexual orientation: Straight/Heterosexual Gender identity: Female Cognitive needs: No Hearing needs: No Vision needs: No Physical Exam ED Vital Signs: Vital Signs - 24 hr 07/24/23 14:38 07/24/23 14:50 07/24/23 16:03 Temperature 97.6 F 97.6 F 97.6 F Pulse Rate 60 64 63 Respiratory Rate 14 18 16 Blood Pressure 134/79 120/74 139/68 Pulse Oximetry 92 92 Oxygen Delivery Method Room Air Room Air Room Air BMI result Body Mass Index 26.9 Const Other: The patient is awake and alert. She is oriented to the time and the place. She can correctly name her and daughter at the bedside. She looks somewhat chronically ill and tired but not obviously acutely toxic. HENMT Other: No facial asymmetry. Mucous membranes are somewhat dry Eyes Other: Pupils are round equal, conjunctivae are clear, extraocular movements intact Neck Other: No appreciable adenopathy. No distinct posterior cervical spine tenderness. She has excellent range of motion of the neck without any discomfort. Her cervical spine is clinically clear. Resp Effort & Inspection: normal respiratory effort Auscultation: clear to auscultation bilaterally Cardio Rate: regular rate Rhythm: regular rhythm Heart sounds: S1 normal heart sound present and S2 normal heart sound present GI Other: The abdomen is soft and not remarkably tender. Skin Other: Skin is pale and dry Neuro Other: The patient is awake and alert. She speaks slowly but clearly. She is oriented to time and place and person. Her face is symmetrical. Eye movements intact. Speech is without aphasia or dysarthria. She moves her extremities symmetrically. No gross discoordination. She seems diffusely weak but has no focal findings Extrem Other: No pitting edema Medical Decision Making Medical Decision Making MDM Narrative: The patient comes to the emergency room with increasing weakness presumably related to a new diagnosis of liver cancer. She received her first cancer treatment today, immunotherapy from Dr. Li. The patient lives with her who was older and somewhat frail. The patient has seemed weak and her does not feel that he can look after her safely. She had a fall last night. Labs and a CT scan of the head to have been done. Labs are largely unremarkable today. Possibly showing some degree of dehydration but no found metabolic derangements. I have ordered IV fluids and will be signing the patient out to the oncoming emergency physician pending results of the head CT as well as case management and physical therapy evaluations. The patient will be placed in physician observation. Lab Data 07/24/23 16:44 07/24/23 16:44 Labs: Lab Results 07/24/23 07/24/23 07/24/23 Range/Units 16:42 16:44 16:50 WBC 6.0 (4.8-10.8) X10*3/uL RBC 4.93 (4.20-5.50) X10*6/uL Hgb 15.9 (12.0-16.0) g/dl Hct 46.8 (37.0-47.0) % MCV 94.9 (80.0-98.0) fL MCH 32.3 (27.0-33.0) pg MCHC 34.0 (31.0-35.0) g/dl RDW 14.7 (11.0-16.0) % Plt Count 107 L D (160-400) X10*3/uL MPV 11.3 (9.4-12.3) fL Immature Gran % (Auto) 0.5 H (0.0-0.4) % Neut % (Auto) 93.2 H (45-73) % Lymph % (Auto) 5.3 L (20-40) % [place] % (Auto) 0.8 L (2-11) % Eos % (Auto) 0.0 (0-4) % Baso % (Auto) 0.2 (0-2) % Lymph # (Auto) 0.3 L (1.2-4.9) X10*3/uL [place] # (Auto) 0.1 (0.1-1.2) X10*3/uL Eos # (Auto) 0.0 (0.0-0.4) X10*3/uL Baso # (Auto) 0.0 (0.0-0.2) X10*3/uL Abs Immat Gran (auto) 0.03 (0.00-0.03) X10*3/uL Absolute Neuts (auto) 5.6 (2.0-8.3) x10*3/uL Absolute Nucleated RBC 0.000 (0.0-0.012) X10*3/uL Nucleated RBC % (auto) 0.0 (0.0-0.2) /100WBC Smear Tech's Comments VERIFIED VBG pH 7.37 (7.32-7.43) VBG pCO2 48 mmHg VBG pO2 50 mmHg VBG HCO3 27 H (22-26) mmol/L VBG O2 Saturation 80.0 % VBG Base Excess 1.8 mmol/L Sodium 135 (135-145) mmol/L Potassium 4.1 (3.3-5.1) mmol/L Chloride 99 (96-108) mmol/L Carbon Dioxide 25 (22-29) mmol/L Anion Gap 15 (12-20) BUN 34 H (9-16) mg/dL Creatinine 0.90 (0.5-1.4) mg/dL Estim Creat Clear Calc 52.1 Estimated GFR 60 Random Glucose 111 (60-115) mg/dL Calcium 9.6 (8.4-10.2) mg/dL Magnesium 1.7 (1.6-2.6) mg/dL Total Bilirubin 1.2 H (0.0-1.0) mg/dL Direct Bilirubin 0.7 H (0.0-0.5) mg/dL AST 37 H (5-31) U/L ALT 25 (0-31) U/L Alkaline Phosphatase 335 H (39-117) U/L Ammonia 26 (13-55) umol/L B-Natriuretic Peptide 56 (<100) pg/mL Total Protein 6.4 L (6.5-8.0) g/dL Albumin 3.7 (3.5-5.0) g/dL Lipase 8 (8-78) U/L Urine Color Yellow Urine Appearance Clear Urine pH 5.5 (5.0-9.0) Ur Specific [place] 1.020 (1.005-1.025) Urine Protein Trace (Neg-Trace) mg/dL Urine Glucose (UA) Negative (Negative) mg/dL Urine Ketones 40 (Negative) mg/dL Urine Blood Small (1+) H (Negative) Urine Nitrite Negative (Negative) Ur Leukocyte Esterase Small (1+) H (Negative) Urine RBC 0-2 (0-2) /HPF Urine WBC 0-5 (0-5) /HPF Ur Squamous Epith Cells 0-2 (0-2) /HPF Other Crystals Present Urine Bacteria None Seen (None Seen) Hyaline Casts 0-2 (0-2) /LPF Independent Interpretation I performed an independent interpretation of an: EKG Interpretation: 1558 shows sinus rhythm with a first-degree AV block at 70 beats per minute. No acute ischemic changes. Discharge Plan Discharge Clinical Impression: Weakness, Liver cancer Patient Disposition: Still a Patient Prescriptions: No Action (DME) commode Kit See Rx Instructions .ROUTE .MEDSUPPLY Qty: 1 0RF Rx Instructions: As directed cholecalciferol (vitamin D3) 50 mcg (2,000 unit) capsule 50 mcg PO DAILY Qty: 90 3RF amlodipine 2.5 mg tablet 2.5 mg PO DAILY Qty: 90 1RF bisacodyl [Dulcolax (bisacodyl)] 5 mg tablet,delayed release (DR/EC) 20 mg PO ONCE 1 Days Qty: 4 0RF Rx Instructions: take at noon the day before colonoscopy irbesartan 75 mg tablet 75 mg PO DAILY 90 Days Qty: 90 1RF Eliquis 5 mg tablet 5 mg PO BID 90 Days Qty: 180 3RF calcium citrate 500 mg Tablet, Effervescent 500 mg PO DAILY PRN (Reason: gi upset) omeprazole 40 mg capsule,delayed release(DR/EC) 40 mg PO DAILY Qty: 90 4RF ondansetron 8 mg Tablet,Disintegrating 8 mg PO Q8H Qty: 50 3RF dronabinol [Marinol] 2.5 mg Capsule 2.5 mg PO BID Qty: 60 3RF Rx Instructions: administer before lunch and evening meal/dinner oxycodone 5 mg Tablet 5 mg PO Q6H PRN (Reason: Breakthrough Pain, Moderate) Qty: 60 0RF Rx Instructions: Partial Fill upon patient request. prochlorperazine maleate [Compazine] 10 mg Tablet 10 mg PO Q6H PRN (Reason: Nausea And Vomiting) Qty: 40 3RF atorvastatin 10 mg tablet 10 mg PO BEDTIME dicyclomine 10 mg capsule 20 mg PO BID
--- NOTE | 2023-07-24 15:45 | ECG_ITS ---
Test Reason : WEAKNESS Blood Pressure : / mmHG Vent. Rate : 070 BPM Atrial Rate : 070 BPM P-R Int : 214 ms QRS Dur : 084 ms QT Int : 400 ms P-R-T Axes : 097 -30 076 degrees QTc Int : 432 ms Sinus rhythm with 1st degree A-V block Left axis deviation Pulmonary disease pattern Minimal voltage criteria for LVH, may be normal variant ( R in aVL ) Abnormal ECG When compared with ECG of 10-JUL-2023 11:52, [place] interval has increased Referred By: Casey Wells Electronically Signed By:CRISSY ANDERSON MD
[2023-07-24 16:03] VITALS: BP 139/68; PULSE 63; RESP 16; TEMP 36.4; O2SAT 92
[2023-07-24 16:56] LABS: Appearance Urine Clear; Glucose Urine UA Negative (Negative); Leukocyte Esterase Urine Small (1+) (Negative); Nitrite Urine Negative (Negative); PH 5.5 (5.0-9.0); UMIC TRIGGER UACC YES; Urine Blood Small (1+) (Negative); Urine Ketones 40 mg/dL (Negative); Urine Protein Trace mg/dL (Neg-Trace)
[2023-07-24 16:57] LABS: Basophils Percent Auto 0.2 % (0-2); Hematocrit 46.8 % (37.0-47.0); Hemoglobin 15.9 g/dl (12.0-16.0); Imm Gran Abs Auto 0.03 X10*3/uL (0.00-0.03); Imm Gran Pct Auto 0.5 % (0.0-0.4); Lymphocytes Absolute Auto 0.3 X10*3/uL (1.2-4.9); Lymphocytes Percent Auto 5.3 % (20-40); MANUAL DIFF FLAG SCAN; Mean Corpuscular Hemoglobin 32.3 pg (27.0-33.0); Mean Corpuscular Volume 94.9 fL (80.0-98.0); Mean Platelet Volume 11.3 fL (9.4-12.3); Monocytes Absolute Auto 0.1 X10*3/uL (0.1-1.2); Monocytes Percent Auto 0.8 % (2-11); Neutrophils Absolute Auto 5.6 x10*3/uL (2.0-8.3); Neutrophils Percent Auto 93.2 % (45-73); Platelet Count 107 X10*3/uL (160-400); Red Blood Count 4.93 X10*6/uL (4.20-5.50); Red Cell Distribution Width 14.7 % (11.0-16.0); SCAN SMEAR FLAG 1
[2023-07-24 17:00] LABS: VBG Base Excess 1.8 mmol/L; VBG HCO3 27 mmol/L (22-26); VBG pCO2 48 mmHg; VBG pH 7.37 (7.32-7.43); VBG pO2 50 mmHg
[2023-07-24 17:00] LABS: Venous Blood Gas Refer to POC result
[2023-07-24 17:01] LABS: Color Urine Yellow
[2023-07-24 17:01] LABS: INTERNATIONAL NORM RATIO 1.6 (0.9-1.1); Prothrombin Time 19.5 SEC (11.1-13.3)
[2023-07-24 17:04] LABS: Ammonia 26 umol/L (13-55)
[2023-07-24 17:13] LABS: Alanine Aminotransferase 25 U/L (0-31); Albumin Level 3.7 g/dL (3.5-5.0); Alkaline Phosphatase 335 U/L (39-117); Anion Gap 15 (12-20); Aspartate Amino Transferase 37 U/L (5-31); Bilirubin Direct 0.7 mg/dL (0.0-0.5); Bilirubin Total 1.2 mg/dL (0.0-1.0); Blood Urea Nitrogen 34 mg/dL (9-16); Calcium 9.6 mg/dL (8.4-10.2); Carbon Dioxide 25 mmol/L (22-29); Chloride 99 mmol/L (96-108); Creatinine Clr Calc Pharmacy 52.1; Estimated Glomerular Filt Rate 60; Glucose Random 111 mg/dL (60-115); Lipase 8 U/L (8-78); Magnesium 1.7 mg/dL (1.6-2.6); Potassium 4.1 mmol/L (3.3-5.1); Sodium 135 mmol/L (135-145); Total Protein 6.4 g/dL (6.5-8.0)
[2023-07-24 17:14] LABS: SLIDE REVIEW VERIFIED
[2023-07-24 17:15] LABS: Bacteria Urine None Seen (None Seen); Other Crystals Urine Present; RBC Urine 0-2 /HPF (0-2); Squamous Epithelial Cell Urine 0-2 /HPF (0-2); UACC Culture Trigger YES; WBC Urine 0-5 /HPF (0-5)
[2023-07-24 17:16] LABS: Hyaline Casts Urine 0-2 /LPF (0-2)
[2023-07-24 17:16] LABS: B Type Natriuretic Peptide 56 pg/mL (<100)
[2023-07-24 17:45] LABS: Influenza A PCR NEGATIVE (Negative); Influenza B PCR NEGATIVE (Negative); Resp Syncy Virus RNA Qual PCR NEGATIVE (Negative); SARS COV2 PCR INHOUSE NEGATIVE (Negative)
[2023-07-24] MEDS: 0.9 % Sodium Chloride 1,000 ML 999 ML IV (18:12)
[2023-07-24 18:15] VITALS: BP 142/81; PULSE 68; RESP 18; TEMP 36.6; O2SAT 95
--- NOTE | 2023-07-24 19:20 | MHC.CM.ED ---
Addendum entered by Treasure Hernandez 07/24/23 22:14: CM spoke with daughter, Dilia ([phone]). Reviewed proposed plan of care, STR options and pending PT. Encouraged daughter to speak with Dr. Li regarding diagnosis, prognosis and oncology plan of care, as she had some questions regarding prognosis and when they would re-scan her mother. CM did explain that oncology has strict protocols that they follow with regards to cancer treatment and Dr. Li would be able to answer her questions. Dilia agreed that STR would be best for her mother and would enable her father to rest. She agreed that they are overwhelmed with the cancer diagnosis. She also verifies that her mother is worsening quickly since her diagnosis. Explained that 11 referrals have been made for STR. Also reviewed private pay home help, [facility] and family help. Dilia has CM contact information. Dilia is aware that [employer] medicare will need to authorize the STR. Original Note: CM met with patient and her at the request of Dt. Szymanski. Pt is A&Ox3. Lives with her of 64 years, Hemant Aguiar ([phone]). He is HCP#1. Her daughter, Dilia is HCP#2 ([phone]). They live in a Condo with the bedrooms and full bath upstairs. Pt has been unable to climb stairs for past 4-5 days and has been sleeping on the couch. Her has been sleeping on a mat on the living room floor to be near her. He admits that she has been much weaker over the past 4-5 days. She has a cane. Pt was recently diagnosed with liver CA and had her first immunotherapy treatment today. She sees Dr. Li for oncology and her PCP is Santos Reyez. Pt was a 30 year employee of [employer], last working in [employer]. Pt has had little appetite and states she is drinking less. Spoke with patient and regarding providing high nutritional snacks, protein drinks, increased fluids and small, frequent meals to try to increase po intake. tells CM oncology has ordered medications for nausea and pain. Pt admits to abdominal pain across her abdomen. Pt and are agreeable to PT consult in the morning. They are overwhelmed with her recent diagnosis and are unsure how to proceed. Patient is conflicted about STR. May want home PT, however expresses concerns about her weakness. Spoke with patient and about referrals locally, which they can refuse is they choose. CM will call and speak with daughterDilia regarding possible need for STR. Also spoke with patient and daughter regarding help from family, [facility], and private pay help. Will place task for [facility] with as contact. D/C plan: PT for recommendation for [place]. Local referrals to area SNF Task [facility] Will meet with patient and again tomorrow. Aware that [employer] Medicare can take a day to approve STR.
--- NOTE | 2023-07-24 20:26 | PC.NURSE ---
pharmacist at bedside doing med rec
--- NOTE | 2023-07-24 20:31 | PHA.MEDREC ---
Pharmacy Consult ? Medication Reconciliation Pharmacy has completed the medication reconciliation. Patient and confirmed medications. Reports not taking dronabinal due to insurance issues. Teresa Mayer, PharmD
[2023-07-24 20:46] VITALS: BP 161/85; PULSE 68; RESP 16; TEMP 36.9; O2SAT 97
[2023-07-24 21:11] VITALS: BP 162/87; PULSE 61; RESP 14; TEMP 36.2; O2SAT 94
[2023-07-25] MEDS: oxyCODONE HCl Immed Release 5 MG TABLET PO ×2 (01:28→22:44)
[2023-07-25] MEDS: Prochlorperazine Maleate 5 MG TABLET 10 MG PO (01:30)
[2023-07-25 05:56] VITALS: BP 161/89; PULSE 71; RESP 14; TEMP 36.2; O2SAT 95
--- NOTE | 2023-07-25 06:59 | PC.NURSE ---
Pt a/o x2. frequently needing re orientation to unit. Using bedside commode. Denies pain at this time.
[2023-07-25] MEDS: Apixaban 5 MG TABLET PO ×2 (07:57→22:29)
[2023-07-25] MEDS: Cholecalciferol (Vitamin D3) 25 MCG TABLET 50 MCG PO (07:57)
[2023-07-25] MEDS: amLODIPine Besylate 2.5 MG TABLET PO (07:57)
[2023-07-25] MEDS: Dicyclomine HCl 10 MG CAPSULE 20 MG PO ×2 (07:57→22:29)
[2023-07-25] MEDS: Omeprazole 40 MG CAPSULE.DR PO (07:58)
[2023-07-25] MEDS: Valsartan 40 MG TABLET PO (07:58)
--- NOTE | 2023-07-25 08:00 | PC.NURSE ---
Patient is alert and oriented x3, patient reports no pain, morning meds given at this time, patient takes pills one at a time and was belching inbetween pills, states slightly nauseaus at this time but does not want prn at this time. Plan is for patient to go to rehab, awaiting placement.
--- NOTE | 2023-07-25 08:50 | MHC.EDTECH ---
PT did not eat anything from her breakfast tray. Pt did drink some orange juice and coffee. Pt kept a banana in case she gets hungry and wants to snack on something.
[2023-07-25 08:58] VITALS: BP 161/89; PULSE 71; O2SAT 95
--- NOTE | 2023-07-25 09:29 | MHC.CM.ED ---
Addendum entered by Jammie Araujo 07/25/23 11:40: [facility], [facility], and [facility] are able to offer a bed. Patient and , Hemant, accept bed at [facility]. Facility has been asked to go for ins auth. Original Note: Patient remains in ER overflow. Physical therapy eval completed. Short term rehab is recommended. Clinical updates sent to facilities still following: [facility], [facility], [facility], [facility], [facility] and [facility]. Per Dr Li, patient received 1st dose of immunotherapy on 07/23. Next dose due 08/13. Continue to monitor for d/c needs.
--- NOTE | 2023-07-25 12:45 | PC.NURSE ---
Oncology MD at bedside, discussed with MD as patient is a hard stick, MD to put in order for PICC line.
[2023-07-25 14:00] VITALS: BP 135/81; PULSE 61; RESP 18; TEMP 36.3; O2SAT 94
--- NOTE | 2023-07-25 14:00 | PC.NURSE ---
Patient is A&0 x2, patient unable to state where she is, when asked the year and month she though 05/2022. Patient was able to be reoriented. at bedside, states his daughter is coming to visit. Plan is for patient to go to [facility], awaiting prior auth.
--- NOTE | 2023-07-25 20:15 | PC.NURSE ---
Assumed care of pt at 19:15. PT laying in bed and offering no complaints @ this time. PT refused scheduled oxycodone and stated she is not in any pain @ this time. Plan of care ongoing.
[2023-07-25 21:39] VITALS: BP 148/90; PULSE 76; RESP 12; TEMP 36.9; O2SAT 93
[2023-07-25] MEDS: Atorvastatin Calcium 10 MG TABLET PO (22:29)
[2023-07-25] MEDS: Ondansetron ODT 4 MG TAB.RAPDIS 8 MG TRANSLINGU (22:46)
[2023-07-26] MEDS: Prochlorperazine Maleate 5 MG TABLET 10 MG PO (06:45)
--- NOTE | 2023-07-26 08:45 | MHC.CM.ED ---
Patient remains in ER overflow. Waiting for insurance auth for [facility]. Per Dr Li, patient will need PICC line but has to be without Eliquis for [address] Li's office will arrange this outpatient. Continue to monitor for d/c needs.
[2023-07-26] MEDS: Apixaban 5 MG TABLET PO (09:37)
[2023-07-26] MEDS: Cholecalciferol (Vitamin D3) 25 MCG TABLET 50 MCG PO (09:37)
[2023-07-26] MEDS: oxyCODONE HCl Immed Release 5 MG TABLET PO (09:37)
[2023-07-26] MEDS: Omeprazole 40 MG CAPSULE.DR PO (09:37)
[2023-07-26] MEDS: Valsartan 40 MG TABLET PO (09:37)
[2023-07-26] MEDS: amLODIPine Besylate 2.5 MG TABLET PO (09:37)
[2023-07-26] MEDS: Dicyclomine HCl 10 MG CAPSULE 20 MG PO (09:38)
[2023-07-26] MEDS: Ondansetron ODT 4 MG TAB.RAPDIS 8 MG TRANSLINGU (10:12)
[2023-07-26 11:15] VITALS: BP 139/86; PULSE 84; RESP 18; TEMP 36.6; O2SAT 97
--- NOTE | 2023-07-26 11:16 | PC.NURSE ---
pt moved from overflow to [facility] 6 for hospital convenience, this nurse took over care of patient at 1115 am, patient is awake/alert to person/place, at bedside, pt currently denying pain, vitals obtained and currently stable, pt awaiting ambulance discharge to care one at 1130 am.
[2023-07-26 11:45] VITALS: BP 139/86; PULSE 84; RESP 18; TEMP 36.6; O2SAT 97
== END 2023-07-26 11:49 | disposition skilled nursing facility (03) ==
PROVIDERS: Emergency Provider Emergency Medicine; PCP Nurse Practitioner Family
DX: C22.8 Malignant neoplasm of liver, primary, unspecified as to type (principal); R53.1 Weakness; I44.0 Atrioventricular block, first degree; R94.31 Abnormal electrocardiogram [ECG] [EKG]; R26.2 Difficulty in walking, not elsewhere classified; R11.2 Nausea with vomiting, unspecified; R51.9 Headache, unspecified; Z11.52 Encounter for screening for COVID-19; Z20.822 Contact with and (suspected) exposure to COVID-19; Z79.899 Other long term (current) drug therapy
CPT/HCPCS: 0241U; 36415; 70450; 71045; 80048; 80076; 81001; 81003; 82140; 82803; 83690; 83735; 83880; 85025; 85610; 87086; 93005; 96360; 97162; 99285; J7120

== ENCOUNTER → 2023-07-24 15:45 | Outpatient (BNV) | payer MEDICARE, SELFPAY | PROVIDERS: Emergency Provider Emergency Medicine; Visit Provider Internal Medicine Cardiovascular Disease | DX: I44.0 Atrioventricular block, first degree (principal); R94.31 Abnormal electrocardiogram [ECG] [EKG] | CPT/HCPCS: 93010 ==

== ENCOUNTER 2023-08-11 10:57 | Inpatient (IN) | payer MEDICARE, SELFPAY ==
--- NOTE | ~2023-08-11 | CT_ITS ---
EXAMINATION: CT ABDOMEN AND PELVIS WITHOUT CONTRAST CLINICAL INFORMATION: Recent surgery, abdominal pain and lethargy. History of liver carcinoma. COMPARISON: None available. TECHNIQUE: Multidetector volumetric imaging was performed from the superior aspect of the liver through the pubic symphysis. Sagittal and coronal reformatted images were obtained on the technologist's workstation. This CT examination was performed using dose optimization techniques as appropriate, variously including the following: *Automated exposure control *Adjustment of mA and/or kV according to patient size (this includes techniques or standardized protocols for targeted exams where dose is matched to indication/reason for exam; i.e. extremities or head) *Use of iterative reconstruction technique DLP: 586 mGy-cm FINDINGS: POT LINING SUPERVISOR: Cholecystectomy clips. Pelvic phleboliths. Nonobstructive bowel pattern. Left base atelectasis. L5-S1 disc disease. All LUNG BASES: Scattered atelectasis. Descending thoracic aorta measures 3.7 cm. Coronary calcifications. LIVER, GALLBLADDER, AND BILIARY TREE: Mildly nodular liver. No enlarged hepatic masses in the right lobe of the liver are poorly characterized on noncontrast study and appear to be enlarging. Intrahepatic biliary ductal dilatation also again appears to be present but Status post cholecystectomy. PANCREAS: Unremarkable. SPLEEN: Unremarkable. Accessory splenule. ADRENAL GLANDS: Unremarkable. KIDNEYS, URETERS AND BLADDER: Multiple peripherally calcified and noncalcified renal cysts again seen, largest measuring 10 cm. Ptotic right kidney again seen. There appears to be interval development of moderate right and mild left hydronephrosis. No definite hydroureter. Urinary bladder is significantly distended containing air GASTROINTESTINAL TRACT: Decompressed stomach. Nonobstructive bowel pattern. Unremarkable appendix. Diverticulosis. Thickening of the sigmoid colon without inflammatory changes. ABDOMINAL WALL: No significant hernia is appreciated. LYMPH NODES: Normal. VASCULAR: Atherosclerotic calcifications nonaneurysmal aorta. No pathologic lymphadenopathy. PELVIC VISCERA: Unremarkable. Phleboliths. OSSEOUS STRUCTURES: Extensive degenerative changes right hip. No suspicious osseous lesions. CT/CT abdomen pelvis wo IV con IMPRESSION: Study limited by lack of IV contrast. Suspicion for enlarging hepatic masses, patient with known liver carcinoma. Interval development of bilateral hydronephrosis, right greater than left, in the setting of distended urinary bladder. Consider follow-up renal ultrasound. Intravesicular air may be related to recent instrumentation, evaluate clinically. Urinary tract infection not excluded, correlate with urinalysis. Diverticulosis without diverticulitis. Fleischner guidelines were followed.
--- NOTE | ~2023-08-11 | CT_ITS ---
EXAMINATION: CT HEAD WITHOUT CONTRAST CLINICAL INFORMATION: Altered mental status, recent surgery, abdominal pain and lethargy COMPARISON: 07/24/2023 TECHNIQUE: Contiguous axial imaging was performed from the skull base to vertex without intravenous administration of contrast. This CT examination was performed using dose optimization techniques as appropriate, variously including the following: *Automated exposure control *Adjustment of mA and/or kV according to patient size (this includes techniques or standardized protocols for targeted exams where dose is matched to indication/reason for exam; i.e. extremities or head) *Use of iterative reconstruction technique DLP: 951 mGy-cm FINDINGS: Atrophy, periventricular white matter changes and vascular calcifications are unchanged. No evolving infarct, mass lesion, mass effect, midline shift, hemorrhage or extra-axial fluid collections identified. Lens extractions have been performed. Sinuses and mastoid disease. Bony structures are intact. Hyperostosis frontalis interna again seen. Soft tissues are unremarkable. CT/CT head/brain wo IV con IMPRESSION: No acute intracranial pathology or interval change. Chronic small vessel ischemia and volume loss.
--- NOTE | ~2023-08-11 | XR_ITS ---
EXAMINATION: XR CHEST CLINICAL INFORMATION: Chest pain and weakness COMPARISON: 07/24/2023 TECHNIQUE: Frontal view of the chest was obtained. FINDINGS: PICC line has been placed via left-sided approach, internal tip is at the innominate vein/SVC junction. Heart and mediastinum within normal limits. Aortic calcifications again seen. Lungs are hyper aerated. No vascular congestion or consolidations. Left base scarring/atelectasis again identified. No effusions. Degenerative changes. XR/XR chest 1V IMPRESSION: Stable left base scarring/atelectasis. PICC line as described.
--- NOTE | 2023-08-11 11:06 | ED_ITS ---
HPI - Weakness General Chief complaint: Weakness Stated complaint: INCREASED WEAKNESS LETHARGIC LIVER CA Time Seen by Provider: 08/11/23 11:02 Source: patient, family and EMS Mode of arrival: EMS Limitations: no limitations History of Present Illness HPI Narrative: 83 yo female with history of HCC who was seen here 07/23 for weakness, transferred to [facility] 07/25 then brought to [facility] in [facility] for a procedure with Dr Loja (vascular) with post-operative course complicated with AMS discharged home 08/08 on TPN with family here with complaints of lethargy noted this morning. Of note patient also has history of pulmonary embolism on Eliquis, hypertension, arthritis. Per family the patient has had chronic abdominal pain, poor oral intake over the last 4 months leading to her diagnosis of HCC. She was being followed by Dr. Li here at [facility] but family is now transferring care to [facility]. She did receive 1 dose of immunotherapy on July 23 but is not currently receiving any immuno therapy or chemotherapy. She has a 2 day age surgery with the 1 occurring this past week and the 2nd surgery being scheduled for August at [facility]. Family reports since being home over the last 48 hours she has had generalized weakness, poor oral intake. She is on TPN which the family is giving to her. She has had chronic abdominal pain which she is receiving Tylenol for. This morning when she woke the family noticed that she was quite lethargic and more weak than normal. This prompted their call and ER visit. Of note, she did receive all morning medications including her antihypertensives. MD Complaint: generalized weakness Related Data Home Medications ?Medication ?Instructions ?Recorded ?Confirmed atorvastatin 10 mg tablet 10 mg PO BEDTIME 07/10/23 08/11/23 dicyclomine 10 mg capsule 20 mg PO DAILY 07/10/23 08/11/23 ondansetron 8 mg disintegrating 8 mg PO Q8H PRN Nausea And Vomiting 07/24/23 08/11/23 tablet Previous Rx's ?Medication ?Instructions ?Recorded commode #1 ea 07/31/20 apixaban 5 mg tablet (Eliquis) 5 mg PO BID 90 days #180 tabs 04/04/23 amlodipine 2.5 mg tablet 2.5 mg PO DAILY #90 tabs 04/19/23 omeprazole 40 mg capsule,delayed 40 mg PO DAILY #90 caps 06/23/23 release irbesartan 75 mg tablet 75 mg PO DAILY 90 days #90 tabs 07/16/23 prochlorperazine maleate 10 mg 10 mg PO Q6H PRN Nausea And 07/20/23 tablet (Compazine) Vomiting #40 tabs oxycodone 5 mg tablet 5 mg PO Q6H PRN pain #20 tabs 07/26/23 Allergies Allergy/AdvReac Type Severity Reaction Status Date / Time latex [LATEX] Allergy Intermediate SWELLING Verified 08/11/23 11:13 hazelnut Allergy Unknown ANAPHYLAXIS Verified 08/11/23 11:13 prednisone AdvReac Unknown Unknown Verified 08/11/23 11:13 sulfite AdvReac Unknown Nasal Verified 08/11/23 11:13 swelling Review of Systems 2 Review of Systems: Yes all other systems are reviewed and are negative Constitutional: Constitutional: Reports no additional constitutional complaints, Denies body ache(s), Denies chills, Denies fever(s), Denies headache(s), Reports poor appetite and Reports weakness Eyes: Eyes: Reports no additional eye complaints and Denies change in vision ENT: Reports system reviewed and no additional complaints, except as documented, Denies dizziness, Denies headache(s), Denies nasal congestion, Denies nasal discharge and Denies neck pain Cardiovascular: Cardiovascular: Reports no additional cardiovascular complaints, Denies chest pain, Denies leg edema and Denies dyspnea Respiratory: Respiratory: Reports no additional respiratory complaints, Denies cough and Denies dyspnea Gastrointestinal: Gastrointestinal: Reports no additional gastrointestinal complaints, Reports abdominal pain, Denies diarrhea, Denies nausea and Denies vomiting Genitourinary: Genitourinary: Reports no additional female genitourinary complaints and Denies urinary incontinence Musculoskeletal: Musculoskeletal: Reports no additional musculoskeletal complaints, Denies back pain, Denies arthralgias, Denies joint swelling, Denies neck pain, Denies numbness and Denies tingling Integumentary/Breasts: Skin/Breast: Reports system reviewed and no additional complaints, except as docu and Denies rash Neurologic: Reports system reviewed and no additional complaints, except as documented, Reports confusion, Denies dizziness, Denies headache(s), Denies numbness, Denies tingling and Reports weakness Psychiatric: Psychiatric: Reports confusion PMFSH Past Medical History Attestation statement: The following information was validated with the patient. Source: old records reviewed and nursing notes reviewed Medical History History of pulmonary embolus (PE) Arthritis Elevated cholesterol DVT (deep venous thrombosis) HTN (hypertension) Surgical History History of colonoscopy History of hysteroscopy (~2013) Hx of cystoscopy (~2000) Hx of tonsillectomy History of phacoemulsification of cataract with intraocular lens implantation Hx of cholecystectomy History of total right knee replacement (TKR) Family History Family History Father No problems noted. Mother No problems noted. Other No family history of cancer Social History Social History Household Members: Spouse Housing: [facility] Are you a primary career technical education teacher to a significant other at home: No Do you presently have visiting nurse or other home services: No Alcohol intake: never Comment: PATIENT INDICATED UNSTEADY ON FEET AND WILL REQUIRE ACCOMPANY HER Patient Tobacco Use Status: Former Tobacco user Quit Date: 2003 Years Smoked: over 20 years ago Smoked in Last 30 Days: No e-Cigarette/Vaping Use: Never Used Second Hand Smoke Exposure: No Use of substances other than those prescribed or required for medical reasons: No Advance Directives: No Advance Directives Information Provided: Yes service: No Current occupational status: retired Sexual orientation: Straight/Heterosexual Gender identity: Female Cognitive needs: No Hearing needs: No Vision needs: No Physical Exam 2 Vital Signs: Vital Signs: Last Vital Signs Temp 98.1 F 08/11/23 20:47 Pulse 67 08/11/23 20:47 Resp 17 08/11/23 20:47 BP 106/53 L 08/11/23 20:47 Pulse Ox 92 08/11/23 20:47 O2 Del Method Room Air 08/11/23 20:47 BMI result Body Mass Index 27.3 Const: Other: Sleeping rouses to verbal General: confusion Orientation/consciousness: oriented to person, oriented to place and confusion Limitations: altered mental status HEENT: Head: Yes normal to inspection Ears: hearing grossly normal bilaterally General nose exam: Normal external nose present Face and sinus: Yes normal facial exam Mouth: Normal oral and palatal mucosa present Throat: Yes posterior oropharynx normal Eyes: General: appearance normal, both eyes and all related structures P upils: Equal, round and reactive pupils present Neck: Neck: Yes normal visual inspection Chest: Chest palpation & inspection: normal inspection of the chest Resp: Effort & Inspection: normal respiratory effort Auscultation: clear to auscultation bilaterally Cardio: Rate: regular rate Rhythm: regular rhythm Peripheral pulses: P eripheral pulses 2+ throughout GI: Inspection: Yes normal to inspection and No distended Palpation (GI): S oft to palpation, Tenderness to palpation present (GI) (mild diffuse ) and no guarding Auscultation: normal bowel sounds Back/Spine/Pelvis: Thoracic/Lumbar Spine: thoracic and lumbar spine normal to inspection Skin: General skin exam: no rashes or lesions noted Neuro: General: oriented to person, oriented to place, moves all extremities and confusion Cranial nerves: Yes Equal, round and reactive pupils present Sensory Exam: Normal double simultaneous stimulation for sensation Extrem: General: Yes normal to inspection Course Course Course Narrative: Attempted twice to get records from [facility]-replaced by [facility] Reevaluation(s) Reevaluation #1: Patient with significant decline over the last few months more significantly over the last 2 weeks with underlying history of hepatic malignancy. Extensive discussion with family at bedside about goals of care as patient is lethargic, confused and they are going to have difficulty caring for her at home. At this time she is a full code. We did discuss MOLST and family is going to have family meeting tonight discuss advance directives and possible comfort measures only. Therefore case management will be involved. Placed in physician obs pending above. Pharmacy aware patient will need TPN, maintenance fluids ordered for now Sign out to Kylie LEWIS pending above Reevaluation #2: Family met and decided to change the patient's goals of care to DNR DNI, comfort measures only. Case management was consulted. Patient is to be admitted to the hospital for comfort measures only. Hospitalist has accepted. observation care revealed the patient does meet medical necessity for hospitalization. patient aware of admission. the patient completed observation care at 23:12, total time in observation was 5 hours. Time: 23:12 Medications Administered Generic Name Dose Route Start Last Admin Trade Name Freq PRN Reason Stop Dose Admin Sodium Chloride 1,000 mls @ 100 mls/hr 08/11/23 15:45 08/11/23 16:09 Ns IVCONT 100 mls/hr .Q10H ADELAIDA Administration Discontinued Medications Generic Name Dose Route Start Last Admin Trade Name Wallace PRN Reason Stop Dose Admin Sodium Chloride 1,000 mls @ 999 mls/hr 08/11/23 11:13 08/11/23 12:15 Ns IV 08/11/23 12:13 Infused .Q1H1M STA Infusion Ondansetron HCl 4 mg 08/11/23 15:35 08/11/23 15:36 Ondansetron Hcl 4 Mg/2 Ml Vial IVPUSH 08/11/23 15:36 4 mg ONCE ONE Administration Medical Decision Making Medical Decision Making MDM Narrative: 83 yo female with history of HCC who was seen here 07/23 for weakness, transferred to [facility] 07/25 then brought to [facility] in [facility] for a procedure with Dr Loja (vascular) with post-operative course complicated with AMS discharged home 08/08 on TPN with family here with complaints of lethargy noted this morning. Of note patient also has history of pulmonary embolism on Eliquis, hypertension, arthritis. Per family the patient has had chronic abdominal pain, poor oral intake over the last 4 months leading to her diagnosis of HCC. She was being followed by Dr. Li here at [facility] but family is now transferring care to [facility]. She did receive 1 dose of immunotherapy on July 23 but is not currently receiving any immuno therapy or chemotherapy. She has a 2 day age surgery with the 1 occurring this past week and the 2nd surgery being scheduled for August at [facility]. Family reports since being home over the last 48 hours she has had generalized weakness, poor oral intake. She is on TPN which the family is giving to her. She has had chronic abdominal pain which she is receiving Tylenol for. This morning when she woke the family noticed that she was quite lethargic and more weak than normal. This prompted their call and ER visit. Of note, she did receive all morning medications including her antihypertensives. Patient is sleeping on exam but arouses to verbal. No overt neurological deficits with the exception of some mild confusion. Her abdomen is mildly tender with no rebound or guarding. Her abdomen is soft. Her initial blood pressure is 84 systolic. Otherwise her exam was benign. Will obtain labs, EKG, UA, chest x-ray, CT head/abdomen/pelvis Differential Diagnosis Differential Diagnoses: The differential diagnosis associated with the presentation includes FTT, dehydration, metastatic disease, metabolic encephalopathy Admission/Observation Consideration of admission/observation: Escalation of care including admission/observation considered Patient with known malignancy with failure to thrive whose family can not care for her at home requiring short-term rehab placement and goals of care discussion Lab Data MDM Lab Attestation statement: I reviewed the patient's lab results. Mildly elevated BUN, mildly elevated liver enzymes at base Troponin indeterminately elevated, repeat 08/11/23 11:29 08/11/23 11:29 Labs: Lab Results 08/11/23 08/11/23 08/11/23 Range/Units 11:29 14:56 15:30 WBC 10.4 (4.8-10.8) X10*3/uL RBC 3.97 L (4.20-5.50) X10*6/uL Hgb 12.9 (12.0-16.0) g/dl Hct 37.9 (37.0-47.0) % MCV 95.5 (80.0-98.0) fL MCH 32.5 (27.0-33.0) pg MCHC 34.0 (31.0-35.0) g/dl RDW 15.9 (11.0-16.0) % Plt Count 230 D (160-400) X10*3/uL MPV 11.4 (9.4-12.3) fL Immature Gran % (Auto) 1.4 H (0.0-0.4) % Neut % (Auto) 77.1 H (45-73) % Lymph % (Auto) 10.5 L (20-40) % [place] % (Auto) 10.0 (2-11) % Eos % (Auto) 0.6 (0-4) % Baso % (Auto) 0.4 (0-2) % Lymph # (Auto) 1.1 L (1.2-4.9) X10*3/uL [place] # (Auto) 1.0 (0.1-1.2) X10*3/uL Eos # (Auto) 0.1 (0.0-0.4) X10*3/uL Baso # (Auto) 0.0 (0.0-0.2) X10*3/uL Abs Immat Gran (auto) 0.15 H (0.00-0.03) X10*3/uL Absolute Neuts (auto) 8.0 (2.0-8.3) x10*3/uL Absolute Nucleated RBC 0.000 (0.0-0.012) X10*3/uL Nucleated RBC % (auto) 0.0 (0.0-0.2) /100WBC PT 24.1 H D (11.1-13.3) SEC INR 2.0 H (0.9-1.1) Sodium 137 (135-145) mmol/L Potassium 5.1 D (3.3-5.1) mmol/L Chloride 99 (96-108) mmol/L Carbon Dioxide 29 (22-29) mmol/L Anion Gap 14 (12-20) BUN 50 H (9-16) mg/dL Creatinine 1.01 (0.5-1.4) mg/dL Estim Creat Clear Calc 44.9 Estimated GFR 52 Random Glucose 106 (60-115) mg/dL Lactic Acid 1.1 (0.5-2.0) mmol/L Calcium 8.7 D (8.4-10.2) mg/dL Magnesium 3.1 H (1.6-2.6) mg/dL Total Bilirubin 0.5 (0.0-1.0) mg/dL Direct Bilirubin 0.3 (0.0-0.5) mg/dL AST 63 H (5-31) U/L ALT 85 H (0-31) U/L Alkaline Phosphatase 288 H (39-117) U/L Ammonia 20 (13-55) umol/L Troponin I High Sens 27.5 H D 19.3 H (<3.5-17.0) ng/L Total Protein 5.9 L (6.5-8.0) g/dL Albumin 2.7 L (3.5-5.0) g/dL Lipase 32 (8-78) U/L Urine Color Yellow Urine Appearance Clear Urine pH 7.5 (5.0-9.0) Ur Specific [place] 1.015 (1.005-1.025) Urine Protein Negative (Neg-Trace) mg/dL Urine Glucose (UA) Negative (Negative) mg/dL Urine Ketones Negative (Negative) mg/dL Urine Blood Negative (Negative) Urine Nitrite Negative (Negative) Ur Leukocyte Esterase Negative (Negative) Influenza Type A (PCR) NEGATIVE (Negative) Influenza Type B (PCR) NEGATIVE (Negative) RSV RNA Qual (PCR) NEGATIVE (Negative) SARS-CoV-2 RNA (RT-PCR) NEGATIVE (Negative) Independent Interpretation I performed an independent interpretation of an: EKG, Plain X-Ray and CT Scan Interpretation: I independently reviewed the EKG which shows normal sinus rhythm with a first- degree AV block with a rate of 64, normal ND, normal QRS, normal QT I independently reviewed the CT head/abdomen/pelvis, CXR and agree with the rad report Radiology Impression Discussion of test interpretation with radiology: I have reviewed the radiologist's reading. Radiologist Impression: [place] [address] XRay Report Signed Patient: Colette Aguiar MR#: [id number] : 1940 Acct:[id number] Age/Sex: 83 / F ADM Date: 08/11/23 Loc: .ED Attending Dr: Ordering Physician: Danica Santos NP Date of Service: 08/11/23 Procedure(s): XR chest 1V Accession Number(s): [id number] cc: Santos Reyez [facility]-; Danica Santos NP~ EXAMINATION: XR CHEST CLINICAL INFORMATION: Chest pain and weakness COMPARISON: 07/24/2023 TECHNIQUE: Frontal view of the chest was obtained. FINDINGS: PICC line has been placed via left-sided approach, internal tip is at the innominate vein/SVC junction. Heart and mediastinum within normal limits. Aortic calcifications again seen. Lungs are hyper aerated. No vascular congestion or consolidations. Left base scarring/atelectasis again identified. No effusions. Degenerative changes. XR/XR chest 1V IMPRESSION: Stable left base scarring/atelectasis. PICC line as described. [address] [address] [address] Scan Report Signed Patient: Colette Aguiar MR#: [id number] : 1940 Acct:[id number] Age/Sex: 83 / F ADM Date: 08/11/23 Loc: HO.ED Attending Dr: Ordering Physician: Danica Santos NP Date of Service: 08/11/23 Procedure(s): CT head/brain wo IV con Accession Number(s): [id number] cc: Santos Reyez; Danica Santos NP~ EXAMINATION: CT HEAD WITHOUT CONTRAST CLINICAL INFORMATION: Altered mental status, recent surgery, abdominal pain and lethargy COMPARISON: 07/24/2023 TECHNIQUE: Contiguous axial imaging was performed from the skull base to vertex without intravenous administration of contrast. This CT examination was performed using dose optimization techniques as appropriate, variously including the following: *Automated exposure control *Adjustment of mA and/or kV according to patient size (this includes techniques or standardized protocols for targeted exams where dose is matched to indication/reason for exam; i.e. extremities or head) *Use of iterative reconstruction technique DLP: 951 mGy-cm FINDINGS: Atrophy, periventricular white matter changes and vascular calcifications are unchanged. No evolving infarct, mass lesion, mass effect, midline shift, hemorrhage or extra-axial fluid collections identified. Lens extractions have been performed. Sinuses and mastoid disease. Bony structures are intact. Hyperostosis frontalis interna again seen. Soft tissues are unremarkable. CT/CT head/brain wo IV con IMPRESSION: No acute intracranial pathology or interval change. Chronic small vessel ischemia and volume loss. [place] [address] CT Scan Report Signed Patient: Colette Aguiar MR#: [id number] : 1940 Acct:[id number] Age/Sex: 83 / F ADM Date: 08/11/23 Loc: HO.ED Attending Dr: Ordering Physician: Danica Santos NP Date of Service: 08/11/23 Procedure(s): CT abdomen pelvis wo IV con Accession Number(s): [id number] cc: Santos Reyez; Danica Santos NP~ EXAMINATION: CT ABDOMEN AND PELVIS WITHOUT CONTRAST CLINICAL INFORMATION: Recent surgery, abdominal pain and lethargy. History of liver carcinoma. COMPARISON: None available. TECHNIQUE: Multidetector volumetric imaging was performed from the superior aspect of the liver through the pubic symphysis. Sagittal and coronal reformatted images were obtained on the technologist's workstation. This CT examination was performed using dose optimization techniques as appropriate, variously including the following: *Automated exposure control *Adjustment of mA and/or kV according to patient size (this includes techniques or standardized protocols for targeted exams where dose is matched to indication/reason for exam; i.e. extremities or head) *Use of iterative reconstruction technique DLP: 586 mGy-cm FINDINGS: TRANSFORMATION SPECIALIST: Cholecystectomy clips. Pelvic phleboliths. Nonobstructive bowel pattern. Left base atelectasis. L5-S1 disc disease. All LUNG BASES: Scattered atelectasis. Descending thoracic aorta measures 3.7 cm. Coronary calcifications. LIVER, GALLBLADDER, AND BILIARY TREE: Mildly nodular liver. No enlarged hepatic masses in the right lobe of the liver are poorly characterized on noncontrast study and appear to be enlarging. Intrahepatic biliary ductal dilatation also again appears to be present but Status post cholecystectomy. PANCREAS: Unremarkable. SPLEEN: Unremarkable. Accessory splenule. ADRENAL GLANDS: Unremarkable. KIDNEYS, URETERS AND BLADDER: Multiple peripherally calcified and noncalcified renal cysts again seen, largest measuring 10 cm. Ptotic right kidney again seen. There appears to be interval development of moderate right and mild left hydronephrosis. No definite hydroureter. Urinary bladder is significantly distended containing air GASTROINTESTINAL TRACT: Decompressed stomach. Nonobstructive bowel pattern. Unremarkable appendix. Diverticulosis. Thickening of the sigmoid colon without inflammatory changes. ABDOMINAL WALL: No significant hernia is appreciated. LYMPH NODES: Normal. VASCULAR: Atherosclerotic calcifications nonaneurysmal aorta. No pathologic lymphadenopathy. PELVIC VISCERA: Unremarkable. Phleboliths. OSSEOUS STRUCTURES: Extensive degenerative changes right hip. No suspicious osseous lesions. CT/CT abdomen pelvis wo IV con IMPRESSION: Study limited by lack of IV contrast. Suspicion for enlarging hepatic masses, patient with known liver carcinoma. Interval development of bilateral hydronephrosis, right greater than left, in the setting of distended urinary bladder. Consider follow-up renal ultrasound. Intravesicular air may be related to recent instrumentation, evaluate clinically. Urinary tract infection not excluded, correlate with urinalysis. Diverticulosis without diverticulitis. Independent Historian Clinical information obtained from an independent historian. History obtained from or confirmed by: Spouse and EMS Critical Care Time Critical Care Time Critical Care Time: Yes Total Critical Care Time: 90 Attestation: Goals of care discussion with family Discharge Plan Discharge Clinical Impression: Adult failure to thrive, HCC (hepatocellular carcinoma) Patient Disposition: Admitted As Inpatient Prescriptions: No Action (DME) commode Kit See Rx Instructions .ROUTE .MEDSUPPLY Qty: 1 0RF Rx Instructions: As directed amlodipine 2.5 mg tablet 2.5 mg PO DAILY Qty: 90 1RF irbesartan 75 mg tablet 75 mg PO DAILY 90 Days Qty: 90 1RF Eliquis 5 mg tablet 5 mg PO BID 90 Days Qty: 180 3RF omeprazole 40 mg capsule,delayed release(DR/EC) 40 mg PO DAILY Qty: 90 4RF prochlorperazine maleate [Compazine] 10 mg Tablet 10 mg PO Q6H PRN (Reason: Nausea And Vomiting) Qty: 40 3RF ondansetron 8 mg tablet,disintegrating 8 mg PO Q8H PRN (Reason: Nausea And Vomiting) oxycodone 5 mg tablet 5 mg PO Q6H PRN (Reason: pain) Qty: 20 0RF Rx Instructions: Partial Fill upon patient request. atorvastatin 10 mg tablet 10 mg PO BEDTIME dicyclomine 10 mg capsule 20 mg PO DAILY Print Language: Danish
[2023-08-11 11:08] VITALS: BP 102/62; BP 95/51; PULSE 50; RESP 18; TEMP 36.6; O2SAT 96; BMI 27.3
--- NOTE | 2023-08-11 11:12 | ECG_ITS ---
Test Reason : WEAKNESS Blood Pressure : / mmHG Vent. Rate : 064 BPM Atrial Rate : 064 BPM P-R Int : 216 ms QRS Dur : 072 ms QT Int : 416 ms P-R-T Axes : 090 -19 068 degrees QTc Int : 429 ms Sinus rhythm with 1st degree A-V block with Premature atrial complexes Otherwise normal ECG When compared with ECG of 24-JUL-2023 15:58, Premature atrial complexes are now Present Referred By: Danica Cowan Electronically Signed By:KASANDRA OLIVER
[2023-08-11 11:17] VITALS: BP 84/45
[2023-08-11] MEDS: 0.9 % Sodium Chloride 1,000 ML 999 ML IV (11:31)
[2023-08-11 11:46] LABS: MANUAL DIFF FLAG NO
[2023-08-11 11:49] LABS: Basophils Percent Auto 0.4 % (0-2); Eosinophils Absolute Auto 0.1 X10*3/uL (0.0-0.4); Eosinophils Percent Auto 0.6 % (0-4); Hematocrit 37.9 % (37.0-47.0); Hemoglobin 12.9 g/dl (12.0-16.0); Imm Gran Abs Auto 0.15 X10*3/uL (0.00-0.03); Imm Gran Pct Auto 1.4 % (0.0-0.4); Lymphocytes Absolute Auto 1.1 X10*3/uL (1.2-4.9); Lymphocytes Percent Auto 10.5 % (20-40); Mean Corpuscular Hemoglobin 32.5 pg (27.0-33.0); Mean Corpuscular Volume 95.5 fL (80.0-98.0); Mean Platelet Volume 11.4 fL (9.4-12.3); Neutrophils Percent Auto 77.1 % (45-73); Platelet Count 230 X10*3/uL (160-400); Red Blood Count 3.97 X10*6/uL (4.20-5.50); Red Cell Distribution Width 15.9 % (11.0-16.0); White Blood Count 10.4 X10*3/uL (4.8-10.8)
[2023-08-11 11:53] LABS: Ammonia 20 umol/L (13-55)
[2023-08-11 11:54] LABS: Prothrombin Time 24.1 SEC (11.1-13.3)
[2023-08-11 11:57] LABS: Lactic Acid 1.1 mmol/L (0.5-2.0)
[2023-08-11 12:00] VITALS: BP 96/59; PULSE 65; RESP 16; TEMP 36.4; O2SAT 100
[2023-08-11 12:04] LABS: Alanine Aminotransferase 85 U/L (0-31); Albumin Level 2.7 g/dL (3.5-5.0); Alkaline Phosphatase 288 U/L (39-117); Anion Gap 14 (12-20); Aspartate Amino Transferase 63 U/L (5-31); Bilirubin Direct 0.3 mg/dL (0.0-0.5); Bilirubin Total 0.5 mg/dL (0.0-1.0); Blood Urea Nitrogen 50 mg/dL (9-16); Calcium 8.7 mg/dL (8.4-10.2); Carbon Dioxide 29 mmol/L (22-29); Chloride 99 mmol/L (96-108); Creatinine Clr Calc Pharmacy 44.9; Estimated Glomerular Filt Rate 52; Glucose Random 106 mg/dL (60-115); Lipase 32 U/L (8-78); Magnesium 3.1 mg/dL (1.6-2.6); Potassium 5.1 mmol/L (3.3-5.1); Sodium 137 mmol/L (135-145); Total Protein 5.9 g/dL (6.5-8.0)
[2023-08-11 12:11] LABS: Troponin-I High Sensitivity 27.5 ng/L (<3.5-17.0)
[2023-08-11 12:47] LABS: Influenza A PCR NEGATIVE (Negative); Influenza B PCR NEGATIVE (Negative); Resp Syncy Virus RNA Qual PCR NEGATIVE (Negative); SARS COV2 PCR INHOUSE NEGATIVE (Negative)
[2023-08-11 14:00] VITALS: BP 103/65; PULSE 66; RESP 16; TEMP 36.9; O2SAT 95
[2023-08-11 15:15] LABS: Appearance Urine Clear; Color Urine Yellow; Glucose Urine UA Negative (Negative); Leukocyte Esterase Urine Negative (Negative); Nitrite Urine Negative (Negative); PH 7.5 (5.0-9.0); Specific Gravity - Urine 1.015 (1.005-1.025); Urine Blood Negative (Negative); Urine Ketones Negative (Negative); Urine Protein Negative (Neg-Trace)
--- NOTE | 2023-08-11 15:29 | PC.NURSE ---
PT WAS STRAIGHT CATH FOR 600ML OF CLEAR YELLOW URINE. MLP (SHERMAN) AWARE.
[2023-08-11] MEDS: ondansetron HCL 4 MG/2 ML VIAL IVPUSH (15:36)
[2023-08-11] MEDS: 0.9 % Sodium Chloride 1,000 ML 100 ML IVCONT (16:09)
[2023-08-11 16:16] LABS: Troponin-I High Sensitivity 19.3 ng/L (<3.5-17.0)
--- NOTE | 2023-08-11 19:21 | PHA.MEDREC ---
Addendum entered by Teresa Mayer RPh 08/11/23 19:55: Patient receives TPN from [facility] (not [facility]). Waiting for on-call [facility] to call back to have prescription sent over. Original Note: Pharmacy Consult ? Medication Reconciliation Pharmacy has completed the medication reconciliation. Patient spouse reported medications. Patient;s daugther reported patient's TPN is from [facility]. Contact [facility] on-call, waiting for response to have TPN order sent over. Provider aware that TPN cannot start until tomorrow night. Teresa Mayer, PharmD
--- NOTE | 2023-08-11 19:31 | MHC.CM.ED ---
Danica LEWIS met with family in family room to discuss MOLST form and code status. MOLST completed. Pt is a DNR/DNI. Family is unsure about transfer to hospital and artificial nutrition/hydration questions. They will speak with hospice about those concerns. CM did explain that most people on hospice do not have TPN. Pt has supplies and was to begin TPN at home. MOLST uploaded into [facility]. Family requested to speak with Case Management regarding hospice and plan of care moving forward. and children all expressed their desire for the patient to be comfortable. They have been caring for her at home for the past 3-4 days. They do not feel they can care for her adequately at home. Reviewed hospice care, home hospice care, home hospice with agency supports and hospice in a facility, either hospice home or SNF. Explained that patient is not a candidate for STR, as she is too weak to participate. Reviewed basic financial obligations for hospice in a facility, including that medicare pays for hospice and family would be responsible for room/board charges. Explained that average facilities cost between 400-500 dollars/day. Reviewed average costs of private pay home care. Family is agreeable to informational meeting with [facility] CM called and spoke to Yanet VASQUEZ option trader at [facility]. They will contact daughter, Dilia ([phone]) to make arrangements for informational meeting either Monday or Monday. Hospice is aware that family is requesting hospice in a facility. CM completed a referral in [facility] to Hospice. Message left with [facility] in [place], inquiring about bed availability. They are closed at this time. ([phone]). CM may need to follow up in the morning regarding bed availability. Family cannot care for patient at home. CM will request TECHNICAL AIDE admission with provider, while CM works on hospice in a facility. Will place local referrals for hospice in a SNF. Pt has [facility] medicare. Pharmacy aware that family is unsure of TPN at this time and will proceed with TPN in the morning. Family will decide about continuing TPN after speaking with hospice staff. CM spoke with patient. She is somewhat confused at times. Does know she is in the hospital and that she has cancer. Says she wants to go home. Pt hopes her family will care for her. Pt expresses that she does not want additional cancer treatments and would like to be comfortable. Pt aware that she will stay overnight. Family will speak with patient regarding hospice. CM will follow for discharge planning
[2023-08-11 20:47] VITALS: BP 106/53; PULSE 67; RESP 17; TEMP 36.7; O2SAT 92
--- NOTE | 2023-08-11 20:55 | MHC.EDTECH ---
Pt repositioned to her right side with pillows.
--- NOTE | 2023-08-11 22:17 | PC.NURSE ---
pt moved into hospital bed by ed techs and repositioned utilizing pillows. pt provided with recliner
--- NOTE | 2023-08-12 03:21 | PC.NURSE ---
Ns infusing slow, receiving nurse aware
[2023-08-12] MEDS: Lactated Ringers 1,000 ML 80 ML IVCONT (03:36)
[2023-08-12 03:41] VITALS: BP 125/61; PULSE 69; RESP 16; TEMP 36.6; O2SAT 93
--- NOTE | 2023-08-12 07:02 | P.HPHOSP_ITS ---
History of Present Illness Date of Service: 08/12/23 Attending physician on admission: Larry Lazcano Chief Complaint: Weakness Colette Aguiar is a very pleasant 83 years old woman with past medical history significant for hepatocellular carcinoma diagnosed in April of this year and chronic abdominal pain was brought to the emergency department due to generalized weakness. She received immunotherapy X1 and has been on TPN. She has been following with Dr. Myers the family transfuse care to [facility]. According to who was at bedside patient has been very weak and lethargic. She has been complaining of abdominal pain. Despite lethargy patient was able to answer some of my questions appropriately and was following simple commands. She denied any fever, chest pain or shortness on breath. She also denied nausea or diarrhea. There is no fevers chills reported. and family wishes the patient to be comfort care. In the ED, she was found to have stable vital signs. Blood workup showed no leukocytosis. Magnesium 3.1 and LFTs are elevated. There are no other electrolyte imbalances. Creatinine is 1.01. Troponins are likely elevated. Urinalysis is normal. Head CT scan is negative. Abdomen pelvis CT scan showed enlarging hepatic masses, hydronephrosis nonbloody distention. There is also diverticulosis without diverticulitis. CXR is negative. PICC line noted. ED tx: NS 1 L bolus, Zofran 4 mg IV Review of Systems 2 Review of Systems: Yes Unobtainable due to mental condition [facility] Medical History History of pulmonary embolus (PE) Arthritis Elevated cholesterol DVT (deep venous thrombosis) HTN (hypertension) Family History Father No problems noted. Mother No problems noted. Other No family history of cancer Surgical History History of colonoscopy History of hysteroscopy (~2013) Hx of cystoscopy (~2000) Hx of tonsillectomy History of phacoemulsification of cataract with intraocular lens implantation Hx of cholecystectomy History of total right knee replacement (TKR) Social History Household Members: Spouse Housing: Condominium Are you a primary child care worker to a significant other at home: No Do you presently have visiting nurse or other home services: No Alcohol intake: never Comment: PATIENT INDICATED UNSTEADY ON FEET AND WILL REQUIRE ACCOMPANY HER Patient Tobacco Use Status: Former Tobacco user Quit Date: 2003 Years Smoked: over 20 years ago Smoked in Last 30 Days: No e-Cigarette/Vaping Use: Never Used Second Hand Smoke Exposure: No Use of substances other than those prescribed or required for medical reasons: No Advance Directives: No Advance Directives Information Provided: Yes service: No Current occupational status: retired Sexual orientation: Straight/Heterosexual Gender identity: Female Cognitive needs: No Hearing needs: No Vision needs: No Meds Allergies Allergy/AdvReac Type Severity Reaction Status Date / Time latex [LATEX] Allergy Intermediate SWELLING Verified 08/11/23 11:13 hazelnut Allergy Unknown ANAPHYLAXIS Verified 08/11/23 11:13 prednisone AdvReac Unknown Unknown Verified 08/11/23 11:13 sulfite AdvReac Unknown Nasal Verified 08/11/23 11:13 swelling Active Medications: Current Medications Glycopyrrolate (Glycopyrrolate 0.2 Mg/Ml Vial) 0.2 mg IVPUSH Q6H PRN PRN Reason: Respiratory secretions Haloperidol Lactate (Haloperidol Lactate 5 Mg/Ml Vial) 0.5 mg IVPUSH Q4H PRN PRN Reason: Delirium Sodium Chloride (Ns) 1,000 mls @ 100 mls/hr IVCONT .Q10H [facility] Last Infusion: 08/12/23 03:37 Dose: Infused Lactated Ringer's (Lr) 1,000 mls @ 80 mls/hr IVCONT .[id number] [facility] Stop: 08/12/23 13:14 Last Admin: 08/12/23 03:36 Dose: 80 mls/hr Morphine Sulfate (Morphine Sulfate 2 Mg/Ml Cartridge) 2 mg IVPUSH Q1H PRN PRN Reason: Pain, Severe (7-10)/ RR>/=24 Ondansetron HCl (Ondansetron Hcl 4 Mg/2 Ml Vial) 4 mg IVPUSH Q8H PRN PRN Reason: Nausea and Vomiting Pharmacy Consult (Consult Rx Parenteral Nutrition Ordering) 1 each MISCELLANE DAILY PRN PRN Reason: Consult order Sodium Chloride (0.9 % Sodium Chloride Flush 3 Ml Syringe) 3 ml IVFLUSH QSHIFT [facility] Home Medications ?Medication ?Instructions ?Recorded ?Confirmed ?Last Taken ?Type atorvastatin 10 mg tablet 10 mg PO BEDTIME 07/10/23 08/11/23 07/23/23 History dicyclomine 10 mg capsule 20 mg PO DAILY 07/10/23 08/11/23 07/24/23 History ondansetron 8 mg disintegrating 8 mg PO Q8H PRN Nausea And Vomiting 07/24/23 08/11/23 Unknown History tablet Physical Exam 2 Vital Signs and Narrative: Vital Signs: Last Vital Signs Temp 97.9 F 08/12/23 03:41 Pulse 69 08/12/23 03:41 Resp 16 08/12/23 03:41 BP 125/61 08/12/23 03:41 Pulse Ox 93 08/12/23 03:41 O2 Del Method Room Air 08/12/23 03:41 BMI result Body Mass Index 27.3 Constitutional - Awake and Alert, No apparent distress HEENT - PERRL. No scleral icterus. Dry oral mucosa. Heart - S1S2, RRR, No edema Respiratory - Normal lung expansion, Normal respiratory effort, No respiratory distress, CTA bilaterally Abdomen - Nondistended. Normal bowel sounds. Generalized abdominal tenderness (RUQ > other quadrants), no rebound. No guarding. Extremities - no calf tenderness bilaterally, no swelling Musculoskeletal - Normal inspection, normal ROM Skin - Warm/Dry Neurological - Lethargic. No acute focal weakness. Psychological - Depression affect Results Labs 08/11/23 11:29 08/11/23 11:29 Labs: Laboratory Results - last 24 hr 08/11/23 08/11/23 08/11/23 11:29 14:56 15:30 MCV 95.5 MCH 32.5 MCHC 34.0 RDW 15.9 Plt Count 230 D MPV 11.4 Immature Gran % (Auto) 1.4 H Neut % (Auto) 77.1 H Lymph % (Auto) 10.5 L Beckham % (Auto) 10.0 Eos % (Auto) 0.6 Baso % (Auto) 0.4 Lymph # (Auto) 1.1 L Beckham # (Auto) 1.0 Eos # (Auto) 0.1 Baso # (Auto) 0.0 Abs Immat Gran (auto) 0.15 H Absolute Neuts (auto) 8.0 Absolute Nucleated RBC 0.000 Nucleated RBC % (auto) 0.0 PT 24.1 H D INR 2.0 H Anion Gap 14 Estim Creat Clear Calc 44.9 Estimated GFR 52 Random Glucose 106 Lactic Acid 1.1 Calcium 8.7 D Magnesium 3.1 H Total Bilirubin 0.5 Direct Bilirubin 0.3 AST 63 H ALT 85 H Alkaline Phosphatase 288 H Ammonia 20 Troponin I High Sens 27.5 H D 19.3 H Total Protein 5.9 L Albumin 2.7 L Lipase 32 Urine Color Yellow Urine Appearance Clear Urine pH 7.5 Ur Specific Rincon 1.015 Urine Protein Negative Urine Glucose (UA) Negative Urine Ketones Negative Urine Blood Negative Urine Nitrite Negative Ur Leukocyte Esterase Negative Influenza Type A (PCR) NEGATIVE Influenza Type B (PCR) NEGATIVE RSV RNA Qual (PCR) NEGATIVE SARS-CoV-2 RNA (RT-PCR) NEGATIVE Imaging Radiologist's Impressions: Impressions Chest X-Ray 08/11/23 12:05 IMPRESSION: Stable left base scarring/atelectasis. PICC line as described. Abdomen/Pelvis CT 08/11/23 12:40 IMPRESSION: Study limited by lack of IV contrast. Suspicion for enlarging hepatic masses, patient with known liver carcinoma. Interval development of bilateral hydronephrosis, right greater than left, in the setting of distended urinary bladder. Consider follow-up renal ultrasound. Intravesicular air may be related to recent instrumentation, evaluate clinically. Urinary tract infection not excluded, correlate with urinalysis. Diverticulosis without diverticulitis. Fleischner guidelines were followed. Head CT 08/11/23 12:40 IMPRESSION: No acute intracranial pathology or interval change. Chronic small vessel ischemia and volume loss. Assessment and Plan (1) Adult failure to thrive: Status: Acute (2) Liver lesion, right lobe: Status: Acute Plan Colette Aguiar is a 83 years old woman with history of hepatocellular carcinoma s/p immunotherapy + surgery was brought to the emergency department accompanied by who stated she has been declining, getting weaker and lethargic. 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 Case management has been involved. We will continue home her for chronic diseases. Code status: DNR/DNI Quality Stroke Does the patient have a stroke diagnosis?: No VTE Prior VTE?: No VTE Risk Level:: Medical - moderate - high VTE Device Contraindication: Treatment Not Indicated VTE Drug Contraindication: Treatment Not Indicated
[2023-08-12 07:45] VITALS: BP 125/46; PULSE 71; RESP 16; TEMP 36.1; O2SAT 93
[2023-08-12] MEDS: Morphine Sulfate 2 MG/ML CARTRIDGE IVPUSH ×4 (07:45→22:20)
[2023-08-12] MEDS: ondansetron HCL 4 MG/2 ML VIAL IVPUSH (07:46)
[2023-08-12] MEDS: 0.9 % Sodium Chloride Flush 3 ML SYRINGE IVFLUSH ×2 (07:46→22:24)
--- NOTE | 2023-08-12 11:28 | MHC.CM.PN ---
PER CONVERSATION WITH [facility] RN, PATIENT HAS [facility] MEDICARE AND IT IS UNCLEAR AT THIS TIME IF AGENCY CAN ACCEPT THAT FOR HOSPICE SERVICES. [facility] RN IS LOOKING INTO THIS. FAMILY IS IN ROOM. DAUGHTER, JULES, IS CURRENTLY NOT BEDSIDE. PLAN WILL BE FOR HOSPICE INFORMATIONAL IF THEY ARE ABLE TO ACCEPT THE INSURANCE.
--- NOTE | 2023-08-12 12:48 | MHC.CM.PN ---
PLAN IS HOME WITH [facility] AND [facility], PENDING INFORMATIONAL. PATIENT IS MEDICARE PRIME, ACCORDING TO [facility] LIAISON FAMILY HAS HOSPITAL BED IN HOME. POSSIBLE INFORMATIONAL TOMORROW (08/13/23) ATTEMPTS BEING MADE TO DC PATIENT HOME ON MONDAY WITH THEIR SERVICES IN PLACE HOSPITALIST AWARE OF PLAN.
--- NOTE | 2023-08-12 13:12 | PM.EVENT ---
Event Note Date of Service: 08/12/23 Event Note: patient seen and evaluated this morning and afternoon comfortable overall met the HCPs who decided to dose home hospice will continue current pain meds DC IVF and TPN get hospice [facility] Time Spent With Patient Time: Total time managing care of this patient today ____ minutes.
--- NOTE | 2023-08-12 18:24 | PC.NURSE ---
Pt is ARCHIVIST ECONOMIC HISTORY, A&Ox3 drowsy at times. Pt has, Morphine ordered Q1 IVP for pain, last dose given at 13:40. Family in room all shift. FC placed today for comfort, per MD. After placement of FC 1450ml of concentrated yellow urine drained. Pt is being turned and repositioned as needed. Pt is currently resting in bed, rise and fall of chest noted, no signs and symptoms of distress noted pt appears comfortable, family remains at bedside.
[2023-08-13] MEDS: Morphine Sulfate 2 MG/ML CARTRIDGE IVPUSH ×4 (06:15→22:10)
[2023-08-13] MEDS: 0.9 % Sodium Chloride Flush 3 ML SYRINGE IVFLUSH ×3 (12:30→22:19)
--- NOTE | 2023-08-13 13:38 | P.PNIM_ITS ---
Subjective Subjective Date of Service: 08/13/23 Interval History: feels comfortable pain under control Review of Systems Review of Systems: Yes all other systems are reviewed and are negative Physical Exam 2 Vital Signs: Vital Signs: Last Vital Signs Temp 97.0 F 08/12/23 07:45 Pulse 71 08/12/23 07:45 Resp 16 08/12/23 07:45 BP 125/46 L 08/12/23 07:45 Pulse Ox 93 08/12/23 07:45 O2 Del Method Room Air 08/12/23 07:45 BMI result Body Mass Index 27.3 Const: Other: KENO WRITER Objective Data Active Medications Dicyclomine HCl (Dicyclomine Hcl 10 Mg Capsule) 20 mg PO DAILY [facility] Last Admin: 08/13/23 10:50 Dose: Not Given Documented By: BRANDON Non-Admin Reason: pt KENO WRITER Glycopyrrolate (Glycopyrrolate 0.2 Mg/Ml Vial) 0.2 mg IVPUSH Q6H PRN PRN Reason: Respiratory secretions Haloperidol Lactate (Haloperidol Lactate 5 Mg/Ml Vial) 0.5 mg IVPUSH Q4H PRN PRN Reason: Delirium Morphine Sulfate (Morphine Sulfate 2 Mg/Ml Cartridge) 2 mg IVPUSH Q1H PRN PRN Reason: Pain, Severe (7-10)/ RR>/=24 Last Admin: 08/13/23 12:26 Dose: 2 mg Documented By: BRANDON Ondansetron HCl (Ondansetron Hcl 4 Mg/2 Ml Vial) 4 mg IVPUSH Q8H PRN PRN Reason: Nausea and Vomiting Last Admin: 08/12/23 07:46 Dose: 4 mg Documented By: BRANDON Sodium Chloride (0.9 % Sodium Chloride Flush 3 Ml Syringe) 3 ml IVFLUSH QSHIFT [facility] Last Admin: 08/13/23 12:30 Dose: 3 ml Documented By: BRANDON Labs 08/11/23 11:29 08/11/23 11:29 Microbiology Microbiology Results: Microbiology 08/11/23 15:30 Blood Culture - Preliminary Blood - Venous No growth after 24 hours. 08/11/23 12:18 Blood Culture - Preliminary Blood - Venous No growth after 24 hours. Assessment and Plan (1) Adult failure to thrive: Status: Acute (2) Abdominal pain: Status: Acute Plan Colette Aguiar is a 83 years old woman with history of hepatocellular carcinoma s/p immunotherapy + surgery was brought to the emergency department accompanied by who stated she has been declining, getting weaker and lethargic. 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 Case management has been involved. We will continue home her for chronic diseases. Morphine PRN for pain Ativan PRN for anxiety Secretions control Hospice team eval for home hospice planning Code status: DNR/DNI Quality Stroke Does the patient have a stroke diagnosis?: No VTE Prior VTE?: No VTE Risk Level:: Medical - moderate - high VTE Device Contraindication: Treatment Not Indicated VTE Drug Contraindication: Treatment Not Indicated
[2023-08-14 08:43] VITALS: RESP 17
[2023-08-14] MEDS: Morphine Sulfate 2 MG/ML CARTRIDGE IVPUSH ×2 (08:43→12:14)
[2023-08-14] MEDS: 0.9 % Sodium Chloride Flush 3 ML SYRINGE IVFLUSH (08:52)
[2023-08-14 09:10] VITALS: RESP 16
--- NOTE | 2023-08-14 10:32 | MHC.CM.PN ---
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 CM met with family ( and daughter) at bedside. Plan is to dc home w/ [facility] tomorrow 08/14. Family will provide care, but is reaching out to local agencies for CAMERA SUPERVISOR a few hours a day to assist. CM placed referral to [facility] per family request. Patient to dc w/ dumas in place per family request. PICC to be removed today per MD. [facility] aware of plan, SOC scheduled for 08/14.
--- NOTE | 2023-08-14 12:33 | P.PNIM_ITS ---
Subjective Subjective Date of Service: 08/14/23 Interval History: feels comfortable pain under control Physical Exam 2 Vital Signs: Vital Signs: Last Vital Signs Temp 97.0 F 08/12/23 07:45 Pulse 71 08/12/23 07:45 Resp 16 08/14/23 09:10 BP 125/46 L 08/12/23 07:45 Pulse Ox 93 08/12/23 07:45 O2 Del Method Room Air 08/12/23 07:45 BMI result Body Mass Index 27.3 Const: Other: AQUATICS DIRECTOR Objective Data Active Medications Dicyclomine HCl (Dicyclomine Hcl 10 Mg Capsule) 20 mg PO DAILY [facility] Last Admin: 08/14/23 08:51 Dose: Not Given Documented By: SANDRA Non-Admin Reason: Physician Approved Comments: No complaints from patient. Glycopyrrolate (Glycopyrrolate 0.2 Mg/Ml Vial) 0.2 mg IVPUSH Q6H PRN PRN Reason: Respiratory secretions Lorazepam (Lorazepam 2 Mg/Ml Vial) 0.5 mg IVPUSH Q6H PRN PRN Reason: anxiety/restlessness Morphine Sulfate (Morphine Sulfate 2 Mg/Ml Cartridge) 2 mg IVPUSH Q1H PRN PRN Reason: Pain, Severe (7-10)/ RR>/=24 Last Admin: 08/14/23 12:14 Dose: 2 mg Documented By: SANDRA Ondansetron HCl (Ondansetron Hcl 4 Mg/2 Ml Vial) 4 mg IVPUSH Q8H PRN PRN Reason: Nausea and Vomiting Last Admin: 08/12/23 07:46 Dose: 4 mg Documented By: BRANDON Sodium Chloride (0.9 % Sodium Chloride Flush 3 Ml Syringe) [facility] Last Admin: 08/14/23 08:52 Dose: 3 ml Documented By: SANDRA Sodium Chloride (Sodium Chloride 0.65 % Nasal 44 Ml Sprbtl) 1 spray NOSTRIL-B Q1H PRN PRN Reason: Dryness Labs 08/11/23 11:29 08/11/23 11:29 Microbiology Microbiology Results: Microbiology 08/11/23 15:30 Blood Culture - Preliminary Blood - Venous No growth after 48 hours. 08/11/23 12:18 Blood Culture - Preliminary Blood - Venous No growth after 48 hours. Assessment and Plan (1) Adult failure to thrive: Status: Acute (2) Abdominal pain: Status: Acute Plan Colette Aguiar is a 83 years old woman with history of hepatocellular carcinoma s/p immunotherapy + surgery was brought to the emergency department accompanied by who stated she has been declining, getting weaker and lethargic. 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 Case management has been involved. We will continue home her for chronic diseases. Remove PICC line Morphine PRN for pain Ativan PRN for anxiety Secretions control Hospice team follwing for home hospice planning by tomorrow Code status: DNR/DNI Quality Stroke Does the patient have a stroke diagnosis?: No VTE Prior VTE?: No VTE Risk Level:: Medical - moderate - high VTE Device Contraindication: Treatment Not Indicated VTE Drug Contraindication: Treatment Not Indicated
[2023-08-14] MEDS: Morphine Sulfate Oral Sol 10 MG/5 ML SOLUTION 5 MG SUBLINGUAL (19:54)
[2023-08-14] MEDS: LORazepam 0.5 MG TABLET PO (19:55)
[2023-08-15 03:04] VITALS: RESP 18
[2023-08-15] MEDS: Morphine Sulfate Oral Sol 10 MG/5 ML SOLUTION 5 MG SUBLINGUAL (08:01)
--- NOTE | 2023-08-15 08:53 | MHC.CM.PN ---
Patient to dc home via BLS at 11am today. [facility] will see patient this afternoon. Rx to be sent to [facility] pharmacy. [facility] to provide NUT TAPPER 10-14 hrs/week. CM spoke with and daughter who are aware of and comfortable with plan. MD and RN aware. IMM delivered.
--- NOTE | 2023-08-15 09:38 | P.DS_ITS ---
DS: Providers Provider Date of Service: 08/15/23 Date of admission: 08/12/23 01:01 Primary care physician: ADOLPH Wade DS: Diagnosis Discharge Diagnosis (1) Adult failure to thrive: Status: Acute (2) Abdominal pain: Status: Acute (3) Nausea: Status: Acute (4) Weight loss: Status: Acute (5) Poor appetite: Status: Acute (6) HCC (hepatocellular carcinoma): Status: Acute DS: Summary Hospital Course Hospital Course: Admission note Colette Aguiar is a very pleasant 83 years old woman with past medical history significant for hepatocellular carcinoma diagnosed in April of this year and chronic abdominal pain was brought to the emergency department due to generalized weakness. She received immunotherapy X1 and has been on TPN. She has been following with Dr. Myers the family transfuse care to [facility]. According to who was at bedside patient has been very weak and lethargic. She has been complaining of abdominal pain. Despite lethargy patient was able to answer some of my questions appropriately and was following simple commands. She denied any fever, chest pain or shortness on breath. She also denied nausea or diarrhea. There is no fevers chills reported. and family wishes the patient to be comfort care. In the ED, she was found to have stable vital signs. Blood workup showed no leukocytosis. Magnesium 3.1 and LFTs are elevated. There are no other electrolyte imbalances. Creatinine is 1.01. Troponins are likely elevated. Urinalysis is normal. Head CT scan is negative. Abdomen pelvis CT scan showed enlarging hepatic masses, hydronephrosis nonbloody distention. There is also diverticulosis without diverticulitis. CXR is negative. PICC line noted. ED tx: NS 1 L bolus, Zofran 4 mg IV Hospital course an 83 years old woman with history of hepatocellular carcinoma s/p immunotherapy + surgery was brought to the emergency department accompanied by who stated she has been declining, getting weaker and lethargic. 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 Remove PICC line. Started on Morphine PRN for pain, Ativan PRN for anxiety and Secretions control with good response as pain became under control. Seen by Hospice team who will follow for home hospice. Discharge Plan Hospice measures at home Morphine for pain Ativan for Anxiety Stop the rest of home medications Time Attestation Discharge Coordination Time (in mins): 40 Quality: Safe Use of Opioids Does Pt have an Active Cancer Diagnosis on the Problem List?: Yes Opioid Measure Date for [facility] Report: 07/16/[address] Time for [facility] Report: 09:58 Quality: Stroke Does the patient have a stroke diagnosis?: No Physical Exam Vital Signs: Vital Signs: Last Vital Signs Temp 97.0 F 08/12/23 07:45 Pulse 71 08/12/23 07:45 Resp 18 08/15/23 03:04 BP 125/46 L 08/12/23 07:45 Pulse Ox 93 08/12/23 07:45 O2 Del Method Room Air 08/12/23 07:45 BMI result Body Mass Index 27.3 Const: Other: ALTERNATIVE ENERGY TECHNICIAN DS: Data Data Completed and Pending Completed studies during hospitalization [Text1]: Procedures Excision of Ascending Colon, Via Natural or Artificial Opening Endoscopic, Diagnostic (07/10/23) Inspection of Upper Intestinal Tract, Via Natural or Artificial Opening Endoscopic (07/10/23) Labs on day of discharge: Preliminary micro results at discharge 08/11/23 15:30 Blood Culture - Preliminary Blood - Venous No growth after 48 hours. 08/11/23 12:18 Blood Culture - Preliminary Blood - Venous No growth after 48 hours. Discharge Plan Discharge Anticipated Discharge Date/Time: 08/15/23 09:29 Patient Disposition: Hospice - Home Discharge Diagnosis: Liver cancer Referrals: Hernandez ROBERT [Outside] - 1 Day ([facility] will [facility] this afternoon.) Santos Reyez, PERIODICALS LIBRARY ASSISTANT-BC [Primary Care Provider] - 1 Week Discharge Medications: New haloperidol 0.5 mg tablet 0.5 mg PO Q6H PRN (Reason: nausea and vomiting) Qty: 10 0RF hyoscyamine sulfate 0.125 mg tablet 0.125 mg PO Q6H PRN (Reason: Nausea\Vomiting) Qty: 10 0RF lorazepam [Lorazepam Intensol] 2 mg/mL concentrate 0.5 mg PO Q4H PRN (Reason: anxiety) Qty: 30 0RF morphine concentrate 100 mg/5 mL (20 mg/mL) solution 5 mg PO Q4H PRN (Reason: dyspnea\Pain) Qty: 30 0RF Rx Instructions: Partial Fill upon patient request. Continued omeprazole 40 mg capsule,delayed release(DR/EC) 40 mg PO DAILY Qty: 90 4RF prochlorperazine maleate [Compazine] 10 mg Tablet 10 mg PO Q6H PRN (Reason: Nausea And Vomiting) Qty: 40 3RF ondansetron 8 mg tablet,disintegrating 8 mg PO Q8H PRN (Reason: Nausea And Vomiting) Discontinued (DME) commode Kit See Rx Instructions .ROUTE .MEDSUPPLY Qty: 1 0RF Rx Instructions: As directed amlodipine 2.5 mg tablet 2.5 mg PO DAILY Qty: 90 1RF irbesartan 75 mg tablet 75 mg PO DAILY 90 Days Qty: 90 1RF Eliquis 5 mg tablet 5 mg PO BID 90 Days Qty: 180 3RF oxycodone 5 mg tablet 5 mg PO Q6H PRN (Reason: pain) Qty: 20 0RF Rx Instructions: Partial Fill upon patient request. atorvastatin 10 mg tablet 10 mg PO BEDTIME dicyclomine 10 mg capsule 20 mg PO DAILY Discharge Orders: Discharge Order (Routine); Ordered 08/15/23 Ordered By: Gianluca Woodruff Diet: Advance to usual diet Activity on Discharge: As tolerated Stand Alone Forms: Patient Portal Discharge page Print Language: Sinhala Care Plan Goals: Read below Health Concerns: Read below Plan of Treatment: Read below Assessment: Hospice measures at home Morphine for pain Ativan for Anxiety Stop the rest of home medications
== END 2023-08-15 11:21 | disposition hospice, home (50) | DRG 951 ==
LOC: HO.ED 23:14 → HO.EDOVER 08-12 01:09 → HO.S3 08-12 01:36
PROVIDERS: Nurse Practitioner Family; Admitting Provider Internal Medicine; Emergency Provider Emergency Medicine; PCP Nurse Practitioner Family; Visit Provider Student in an Organized Health Care Education/Training Program
DX: Z51.5 Encounter for palliative care (principal); C22.0 Liver cell carcinoma; G89.3 Neoplasm related pain (acute) (chronic); R62.7 Adult failure to thrive; I10 Essential (primary) hypertension; Z20.822 Contact with and (suspected) exposure to COVID-19; Z79.01 Long term (current) use of anticoagulants; Z86.711 Personal history of pulmonary embolism; Z87.891 Personal history of nicotine dependence; Z79.899 Other long term (current) drug therapy
CPT/HCPCS: 0241U; 36415; 70450; 71045; 74176; 80048; 80076; 81003; 82140; 83605; 83690; 83735; 84484; 85025; 85610; 87040; 93005; 99285; C1758; J2270; J2405; J7120

== ENCOUNTER → 2023-08-11 11:12 | Outpatient (BNV) | payer MEDICARE, SELFPAY | PROVIDERS: Emergency Provider Emergency Medicine; PCP Nurse Practitioner Family; Visit Provider Internal Medicine | DX: I44.0 Atrioventricular block, first degree (principal) | CPT/HCPCS: 93010 ==

== ENCOUNTER → 2023-08-12 01:01 | Outpatient (BNV) | payer MEDICARE, SELFPAY | PROVIDERS: Admitting Provider Internal Medicine; Emergency Provider Emergency Medicine; PCP Nurse Practitioner Family; Visit Provider Internal Medicine | DX: R62.7 Adult failure to thrive (principal); R10.9 Unspecified abdominal pain; R11.0 Nausea; R63.4 Abnormal weight loss; R63.0 Anorexia; C22.0 Liver cell carcinoma | CPT/HCPCS: 99222; 99231; 99233; 99239; 99499 ==